=== PATIENT | female | born 1945 | race Caucasian/White ===

== ENCOUNTER → 2017-02-03 13:24 | Outpatient (CLI) | payer MEDICARE, BC ==
[~2017-02-03 13:24] MED LIST: ATIVAN0.5 MG PO; BAYER CHEWABLE81 MG PO; FLAGYL500 MG PO; HEPARIN SOD5000 U/ML; HEPARIN SOD5000 U/ML IV; HYDROCODONE-APA1 TAB PO; LEVAQUIN750 MG PO; MORPHINE SULF5 MG/ML IV; NITROQUICK0.4 MG SL; ONDANSETRON4 MG/2 M3 IV; SODIUM CL 0.91000 ML IV; TOPROL XL50 MG; TOPROL XL50 MG PO; TYLENOL 8 HOUR650 MG PO
== END | disposition home or self-care (01) ==
LOC: D.RAD 13:24
DX: R10.9 Unspecified abdominal pain (principal); Z86.010 Personal history of colon polyps; Z09 Encounter for follow-up examination after completed treatment for conditions other than malignant neoplasm

== ENCOUNTER 2017-07-15 22:33 | Emergency (ER) | payer MEDICARE, BC ==
[2017-07-15 22:56] LABS: APPEARANCE CLEAR (CLEAR); BILIRUBIN NEGATIVE (NEGATIVE); COLOR YELLOW (YELLOW); GLUCOSE NEGATIVE (NEGATIVE); KETONE NEGATIVE (NEGATIVE); LEUKOCYTE ESTERASE NEGATIVE (NEGATIVE); NITRITE NEGATIVE (NEGATIVE); PROTEIN NEGATIVE (NEGATIVE); UROBILINOGEN NORMAL (NORMAL)
[2017-07-15 23:07] LABS: BASOPHILS 0.3 % (0-2); EOSINOPHILS 1.3 % (0-7); HEMATOCRIT 37.9 % (36.0-48.0); HEMOGLOBIN 12.5 g/dL (12-16); IMMATURE GRANULOCYTES 0.1 % (0-5); LYMPHOCYTES 37.9 % (15-50); MCH 28.3 pg (26.0-34.0); MCV 85.7 fL (80.0-100.0); MEAN PLATELET VOLUME 10.2 fL (7.4-10.4); MONOCYTES 6.3 % (2-11); NEUTROPHILS 54.1 % (40-80); RBC 4.42 10x6/uL (4.00-5.40); RDW 13.9 % (11.5-14.5); WBC 10.7 10x3/uL (4.8-10.8)
[2017-07-15 23:12] LABS: PLATELET COUNT 180 10x3/uL (130-400)
[2017-07-15 23:21] LABS: ANION GAP 9.6 mmol/L (8-16); BILIRUBIN - TOTAL 0.17 mg/dL (0.2-1.3); CALCIUM 8.7 mg/dL (8.5-10.1); CARBON DIOXIDE 27.4 mmol/L (21.0-32.0); PROTEIN - SERUM 7.2 g/dL (6.4-8.2)
[2017-07-15 23:46] LABS: HELICOBACTER PYLORI IGG NEGATIVE (NEGATIVE)
== END 2017-07-16 00:01 | disposition home or self-care (01) ==
LOC: D.ER 22:33
PROVIDERS: Emergency Medicine; Physician Assistant Medical
DX: K59.00 Constipation, unspecified (principal); I10 Essential (primary) hypertension

== ENCOUNTER 2017-09-26 20:28 | Emergency (ER) | payer MEDICARE, BC ==
[2017-09-27 00:08] LABS: HEMATOCRIT 41.1 % (36.0-48.0); HEMOGLOBIN 13.5 g/dL (12-16); LYMPHOCYTES 33.4 % (15-50); MCH 28.1 pg (26.0-34.0); MCHC 32.8 g/dL (31.0-37.0); MCV 85.6 fL (80.0-100.0); MEAN PLATELET VOLUME 10.1 fL (7.4-10.4); NEUTROPHILS 59.9 % (40-80); PLATELET COUNT 197 10x3/uL (130-400); RDW 13.4 % (11.5-14.5); WBC 10.9 10x3/uL (4.8-10.8)
== END 2017-09-27 01:15 | disposition home or self-care (01) ==
LOC: D.ER 20:28
PROVIDERS: Nurse Practitioner Family
DX: J02.9 Acute pharyngitis, unspecified (principal); R59.0 Localized enlarged lymph nodes; I10 Essential (primary) hypertension

== ENCOUNTER 2017-12-14 18:53 | Emergency (ER) | payer MEDICARE, BC ==
[2017-12-14 20:19] LABS: BASOPHILS 0.2 % (0-2); EOSINOPHILS 2.1 % (0-7); HEMATOCRIT 39.2 % (36.0-48.0); HEMOGLOBIN 13.1 g/dL (12-16); IMMATURE GRANULOCYTES 0.3 % (0-5); LYMPHOCYTES 38.4 % (15-50); MCHC 33.4 g/dL (31.0-37.0); MCV 86.9 fL (80.0-100.0); MEAN PLATELET VOLUME 10.6 fL (7.4-10.4); MONOCYTES 6.6 % (2-11); NEUTROPHILS 52.4 % (40-80); PLATELET COUNT 195 10x3/uL (130-400); RBC 4.51 10x6/uL (4.00-5.40); RDW 13.2 % (11.5-14.5); WBC 9.1 10x3/uL (4.8-10.8)
[2017-12-14 20:43] LABS: ALBUMIN 3.1 g/dL (3.4-5.0); ANION GAP 14.4 mmol/L (8-16); BILIRUBIN - TOTAL 0.14 mg/dL (0.2-1.3); CALCIUM 8.7 mg/dL (8.5-10.1); CARBON DIOXIDE 23.6 mmol/L (21.0-32.0); CREATININE - SERUM 1.1 mg/dL (0.6-1.3); PROTEIN - SERUM 7.4 g/dL (6.4-8.2)
== END 2017-12-14 22:17 | disposition home or self-care (01) ==
LOC: D.ER 18:53
PROVIDERS: Emergency Medicine
DX: R41.3 Other amnesia (principal); I25.10 Atherosclerotic heart disease of native coronary artery without angina pectoris; I10 Essential (primary) hypertension; I44.0 Atrioventricular block, first degree

== ENCOUNTER 2018-03-12 19:33 | Emergency (ER) | payer MEDICARE, BC ==
[2018-03-12 20:06] LABS: APPEARANCE HAZY (CLEAR); BILIRUBIN NEGATIVE (NEGATIVE); COLOR YELLOW (YELLOW); GLUCOSE NEGATIVE (NEGATIVE); KETONE NEGATIVE (NEGATIVE); NITRITE NEGATIVE (NEGATIVE); PROTEIN NEGATIVE (NEGATIVE); SPECIFIC GRAVITY 1.015 (1.005-1.020); UROBILINOGEN NORMAL (NORMAL)
[2018-03-12 20:11] LABS: BACTERIA MODERATE /hpf (NONE SEEN); EPITHELIAL CELLS 0-5 /hpf (0-5); RED CELLS - URINE 0-5 /hpf (0-5)
[2018-03-12 20:21] LABS: BASOPHILS 0.2 % (0-2); EOSINOPHILS 1.6 % (0-7); HEMATOCRIT 38.1 % (36.0-48.0); HEMOGLOBIN 12.9 g/dL (12-16); IMMATURE GRANULOCYTES 0.1 % (0-5); LYMPHOCYTES 44.4 % (15-50); MCH 29.6 pg (26.0-34.0); MCHC 33.9 g/dL (31.0-37.0); MCV 87.4 fL (80.0-100.0); MEAN PLATELET VOLUME 10.5 fL (7.4-10.4); MONOCYTES 7.9 % (2-11); NEUTROPHILS 45.8 % (40-80); PLATELET COUNT 197 10x3/uL (130-400); RBC 4.36 10x6/uL (4.00-5.40); RDW 13.3 % (11.5-14.5); WBC 9.1 10x3/uL (4.8-10.8)
[2018-03-12 20:36] LABS: ALBUMIN 2.9 g/dL (3.4-5.0); ANION GAP 11.1 mmol/L (8-16); BILIRUBIN - TOTAL 0.24 mg/dL (0.2-1.3); CALCIUM 8.8 mg/dL (8.5-10.1); CARBON DIOXIDE 27.8 mmol/L (21.0-32.0); POTASSIUM - SERUM 3.9 mmol/L (3.5-5.1); PROTEIN - SERUM 7.5 g/dL (6.4-8.2)
[2018-03-12 20:57] LABS: AMYLASE - SERUM 46 U/L (25-115); CREATINE KINASE 65 UL (21-215); LIPASE 148 U/L (73-393)
== END 2018-03-12 22:33 | disposition home or self-care (01) ==
LOC: D.ER 19:33
PROVIDERS: Family Medicine
DX: T67.2XXA Heat cramp, initial encounter (principal); X58.XXXA Exposure to other specified factors, initial encounter; Y93.89 Activity, other specified; Y92.019 Unspecified place in single-family (private) house as the place of occurrence of the external cause; N39.0 Urinary tract infection, site not specified; I10 Essential (primary) hypertension

== ENCOUNTER 2018-04-18 10:44 | Outpatient (CLI) | payer MEDICARE, BC ==
[~2018-04-18] VITALS: Ht 172.7 cm; Wt 87.2 kg
--- NOTE | ~2018-04-18 | OP ---
PATIENT NAME: CARLOS MANUEL GUTIERRES MEDICAL RECORD: [id number] :43 LOCATION:[facility] ADMISSION DATE: SURGEON: WALDO BOB MD DATE OF OPERATION: 04/18/2018 PROCEDURE: Lead portion of permanent pacemaker placement. INDICATION: Symptomatic bradyarrhythmias with AV block. SURGEON: Denilson Nunez MD DESCRIPTION OF PROCEDURE: After left subclavian was cannulated via modified Seldinger technique via Dr. Nunez, first under fluoroscopic guidance, I placed the RV lead in the RV apex without difficulty. After adequate R-waves and thresholds were obtained, under fluoroscopic guidance, I then placed the right atrial lead in right atrial appendage without difficulty. After adequate P waves and thresholds were obtained, the leads were attached to the appropriate pole on the generator and the pocket was closed via Dr. Nunez. IMPRESSION: Successful lead portion of permanent pacemaker placement. ESTIMATED BLOOD LOSS: Minimal. COMPLICATIONS: None. DISPOSITION: To the floor, stable. TRANSINT:[id number] Voice Confirmation ID: [id number] DOCUMENT ID: [id number] WALDO BOB MD at 0849 CC: [id number] DICTATION DATE: 04/18/18 1526 MANAGER OF COMMUNITY RELATIONS: 04/18/18 1558 [facility] CLI 04/19/18 [id number] [place] [address]
--- NOTE | ~2018-04-18 | OP ---
PATIENT NAME: CARLOS MANUEL GUTIERRES MEDICAL RECORD: [id number] :43 LOCATION:D.CAT ADMISSION DATE: SURGEON: ALLISON HANDY MD DATE OF OPERATION: 04/18/2018 PREOPERATIVE DIAGNOSES: 1. Bradycardia. 2. Hyperlipidemia. 3. Coronary artery disease. 4. Hypertension. POSTOPERATIVE DIAGNOSES: 1. Bradycardia. 2. Hyperlipidemia. 3. Coronary artery disease. 4. Hypertension. PROCEDURE: 1. Left subclavian vein dual lead pacemaker placement. 2. Fluoroscopic interpretation. SURGEON: Allison Handy MD CO-SURGEON: Jefry Harrington MD REPORT OF OPERATION: The patient's left chest was prepped and draped in sterile fashion. A total of 25 mL of 1% lidocaine with epinephrine was infused into the surrounding tissues. A transverse incision was made on the left superior lateral chest and a subcutaneous pouch was made over the pectoral fascia. We accessed the left subclavian vein times 2 and guidewires were advanced with ease. Fluoro was used to note that the wires were in good position in the venous system. A dilator trocar device was placed over the wires and the wire and dilator were removed. The leads were advanced through the trocars and noted to be resting in the vena cava. At this point, Dr. Harrington positioned the leads appropriately in the atrium and ventricle. Once the leads were noted to be functioning appropriately, then they were sutured into place with 0 Ti-Cron. The leads were then affixed to the pacemaker and the pacemaker was placed into the subcutaneous pouch and sutured down to the pectoral fascia with a 0 Ti-Cron. The subcutaneous tissues were irrigated out with antibiotic solution and reapproximated with interrupted 3-0 Vicryl. The skin was then closed with subcutaneous 5-0 Monocryl and dressed appropriately. COMPLICATIONS: None. CONDITION: Stable. ANESTHESIA: Local MAC. BLOOD LOSS: Minimal. TRANSINT:[id number] Voice Confirmation ID: [id number] DOCUMENT ID: [id number] OPERATIVE REPORT [id number] CARLOS MANUEL GUTIERRES ALLISON HANDY MD at 1147 CC: [id number] DICTATION DATE: 04/18/18 1529 ENGLISH TEACHER: 04/18/18 1600 DEP CLI 04/19/18 [address] [place] [address]
--- NOTE | ~2018-04-18 | HEMODYNAMI ---
PATIENT:CARLOS MANUEL GUTIERRES MEDICAL RECORD: [id number] : 43 LOCATION:[facility] ADMISSION DATE: 04/18/18 Generatedon:04/18/201815:32 Patient name: CARLOS MANUEL GUTIERRES Patient #: [id number] SSN: : 1945 Date of study: 04/18/2018 Page: Of Hemodynamic Procedure Report Patient Data Patient Demographics Procedure consent was obtained First Name: CARLOS MANUEL Gender: Female Last Name: BHAVIK : 1945 Middle Initial: D Age: 72 year(s) Patient #: [id number] Race: Unknown Additional ID: [id number] Contact details [address]: [address] [place] [address] State: [place] City: [place] Zip code: [address] Past Medical History Allergies Allergen Reaction Date Comments Reported Other allergy 04/19/2016 Codeine Codeine 04/18/2018 Admission Admission Data Admission Date: 04/18/2018 Admission Time: 10:44 Height (in.): 5.8 BSA: 0.34 (m2) Height (cm.): 14.73 BMI: 4075.46 (kg/m2) Weight (lbs.): 195 Weight (kg.): 88.45 Lab Results Lab Result Date: 04/18/2018 Lab Result Time: 0:00 Biochemistry Name Units Result Min Max BUN mg/dl 21 --(----)-* 7 18 Creatinine mg/dl 1 --(--*-)-- 0.6 1.3 CBC Name Units Result Min Max Hemoglobin g/dl 14.5 --(*---)-- 13.5 17.5 Procedure Procedure Types Cath Procedure Diagnostic Procedure PPM/ICD PPM Dual Implant Sedation Charges Moderate Sedation up to 15 minutes Procedure Description Procedure Date Procedure Date: 04/18/2018 Procedure Start Time: 15:02 Procedure End Time: 15:31 Procedure Staff Name Function Jefry Kolb MD Performing Physician Denilson Nunez MD Assisting physician Javy Young RN Nurse Janis Kaye RT Scrub Nanda Neumann RT Monitor Procedure Data Cath Procedure Fluoroscopy Diagnostic fluoroscopy Total fluoroscopy Time: 1.3 time: 1.3 min min Diagnostic fluoroscopy Total fluoroscopy dose: 37 dose: 37 mGy mGy Estimated blood loss: 5 ml Procedure Complications No complications Procedure Medications Medication Administration Route Dosage Ancef (1Gm/50ml NS) I.V.P.B 1 g Ancef Irrigation Topical 1 g (1gm/500ml NS) Fentanyl I.V. 50 mcg Versed I.V. 1 mg 0.9% NaCl I.V. 100 ml/hr Fentanyl I.V. 50 mcg Versed I.V. 1 mg Fentanyl I.V. 50 mcg Hemodynamics Rest BSA: 0.34 (m2) O2 Consumption: Estimated: 46.24 (ml/min) O2 Consumption indexed: Estimated:136 (ml/min/m) Pre Cath Intra NCS Post Cath Vital Signs Time Heart Resp SPO2 etCO2 NIBP (mmHg) Rhythm Pain Sedation Rate (ipm) (%) (mmHg) Status Level (bpm) 14:48:26 55 18 98 0 159/77(134) NSR 0 (11) 10(A) , No pain 14:53:46 51 18 97 0 157/71(125) NSR 0 (11) 10(A) , No pain 14:58:08 60 16 92 0 143/72(127) NSR 0 (11) 10(A) , No pain 15:03:19 55 15 98 0 140/67(118) NSR 0 (11) 10(A) , No pain 15:07:44 65 16 97 0 150/71(134) NSR 0 (11) 10(A) , No pain 15:12:03 66 16 92 0 134/72(101) NSR 0 (11) 9(A) , No pain 15:16:18 71 16 91 0 128/66(98) NSR 0 (11) 9(A) , No pain 15:20:36 71 18 92 0 132/63(101) NSR 0 (11) 9(A) , No pain 15:24:56 71 20 95 0 123/64(109) NSR 0 (11) 9(A) , No pain 15:29:14 54 18 94 0 119/62(108) NSR 0 (11) 9(A) , No pain Medications Time Medication Route Dose Verified Delivered Reason Notes Effective ness by by 14:59:06 Ancef I.V.P.B 1 g Jefry Girony Per (1Gm/50ml St Armando Young RN physician NS) 14:59:11 Ancef Topical 1 g Jefry Javy Per Irrigation St Armando Young RN physician (1gm/500ml NS) 14:59:20 Fentanyl I.V. 50 Jefry Javy for [facility] Armando Young RN sedation 14:59:27 Versed I.V. 1 mg Jefry Javy for [facility] Armando Young RN sedation 15:00:21 0.9% NaCl I.V. 100 Jefry Girony Per ml/hr St Armando Young RN physician 15:05:01 Fentanyl I.V. 50 Jefry Javy for [facility] Armando Young RN sedation 15:05:06 Versed I.V. 1 mg Jefry Javy for [facility] Armando Young RN sedation 15:08:45 Fentanyl I.V. 50 Jefry Javy for [facility] Armando Young RN sedation Procedure Log Time Note 14:25:39 Nanda Counts RT(R) sent for patient. Start room use. 14:31:05 Time tracking: Regular hours (M-F 7:00 - 5:00) 14:31:09 Plan of Care:Hemodynamics will remain stable., Cardiac rhythm will remain stable., Comfort level will be maintained., Respiratory function will remain adequate., Patient/ family verbilizes understanding of procedure., Procedure tolerated without complication., Recovers from procedure without complications.. 14:36:08 Signed procedure consent form obtained from patient. 14:36:23 H&P Date Dictated: 04/11/2018 Within 30 days and on chart., H&P Addendum completed by physician on day of procedure. (MUST COMPLETE FOR ALL OUTPATIENTS). 14:36:29 Patient allergic to Codeine 14:36:42 Patient Height : 5.8 inches 14:36:46 Patient Weight : 195 lbs 14:38:06 Lab Result : BUN 21 mg/dl 14:38:06 Lab Result : Hemoglobin 14.5 g/dl 14:38:06 Lab Result : Creatinine 1 mg/dl 14:41:02 Patient received from Pre/Post Procedure Room to CCL 3 Alert and oriented. Tansferred to table in Supine position. 14:41:03 Warm blankets applied, and gallito hugger turned on for patient comfort. 14:41:03 Correct patient and procedure confirmed by team. 14:41:04 ECG and BP/O2 sat monitors applied to patient. 14:47:03 Vital chart was started 14:55:31 Rhythm: sinus bradycardia 14:55:33 Full Disclosure recording started 14:55:34 Pre-procedure instructions explained to patient. 14:55:35 Pre-op teaching completed and patient verbalized understanding. 14:55:36 Family in patients room. 14:55:38 Patient NPO since Midnight. 14:55:40 Is the patient allergic to Iodine/contrast media? No. 14:55:42 Is patient on blood thinner?No 14:55:49 Previous problem with sedation/anesthesia? No ? 14:55:54 Snore? Yes 14:55:55 Sleep apnea? No 14:56:01 Deviated septum? No 14:56:01 Opens mouth fully? Yes 14:56:02 Sticks out tongue? Yes 14:56:04 Airway obstruction? No ? 14:56:08 Dentures? No ? 14:56:59 2-0 Ticron Multipack ([id number]) opened to sterile field. 14:57:00 3-0 Vicryl Single Pack [id number] opened to sterile field. 14:57:01 5-0 Monocryl PS3 [id number] opened to sterile field. 14:57:05 Mepilex Dressing (812865) opened to sterile field. 14:57:20 Medtronic Advisa MRI PPM Dual Generator [id number] opened to sterile field. 14:57:24 Medtronic 4574-45 PPM Lead opened to sterile field. 14:57:26 Medtronic 4074-52 PPM Lead opened to sterile field. 14:57:33 Patient pain scale 0/10 ?. 14:57:38 IV patent on arrival in left hand with 0.9% NaCl at [facility] 14:57:51 Left chest area was prepped with chlora-prep and draped in sterile fashion 14:57:51 Alarms reviewed by R. N. 14:57:52 Sharps counted by scrub and verified by R.N. 14:58:11 Final Timeout: patient, procedure, and site verified with staff and physician. All members of the team are in agreement. 14:58:15 Left chest site verified by team. 14:58:18 Physical assessment completed. ASA score P 2 - A patient with mild systemic disease as per Jefry Kolb MD. 14:58:20 Sedation plan: IV Moderate Sedation Medication:Versed, Fentanyl 14:59:06 Ancef (1Gm/50ml NS) 1 g I.V.P.B was administered by Javy Young RN; Per physician; 14:59:11 Ancef Irrigation (1gm/500ml NS) 1 g Topical was administered by Javy Young RN; Per physician; 14:59:20 Fentanyl 50 mcg I.V. was administered by Javy Young RN; for sedation; 14:59:27 Versed 1 mg I.V. was administered by Javy Young RN; for sedation; 15:00:21 0.9% NaCl 100 ml/hr I.V. was administered by Javy Young RN; Per physician; 15:02:13 Procedure started. 15:02:30 Medtronic union contract representative ZHAO DE LA CRUZ present for procedure. 15:02:38 Pre sharps counted by scrub and verified by RN: Sutures: 7; Sponges: 5; Stick needles: 2; Skin needles: 2; Blade: 1; Cautery: 1 15:02:41 Grounding pad site Left thigh. 15:02:42 Grounding pad site free from injury. 15:02:50 Lidocaine 1% w/epi and Bupivacaine 0.5% was administered to left subclavicular area by Denilson Nunez MD . 15:03:01 Incision made to left subclavicular area. 15:03:06 Generator pocket made/opened. 15:05:01 Fentanyl 50 mcg I.V. was administered by Javy Young RN; for sedation; 15:05:06 Versed 1 mg I.V. was administered by Javy Young RN; for sedation; 15:08:45 Fentanyl 50 mcg I.V. was administered by Javy Young RN; for sedation; 15:10:22 Left subclavian vein accessed with 7Fr Peel Away Sheath. 15:11:11 Ventricular lead inserted and advanced. 15:11:31 Left subclavian vein accessed with 7Fr Peel Away Sheath. 15:11:38 Atrial lead inserted and advanced. 15:14:31 DR KOLB SCRUBBED IN FOR LEAD PLACEMENT 15:15:55 Ventricular lead positioned. 15:15:57 Ventricular lead tested. 15:17:06 Atrial lead positioned. 15:17:09 Atrial lead tested. 15:17:54 Peel-a-way sheath was split and removed. 15:17:55 Peel-a-way sheath was split and removed. 15:18:04 Atrial lead attachment was completed with 2-0 ticron. 15:18:35 Ventricular lead attachment was completed with 2-0 ticron. 15:20:12 PPM Dual was attached to lead(s) and inserted into pocket. 15:22:07 Generator was sutured in place with 2-0 ticron. 15:22:10 Device pocket was irrigated with Ancef. 15:22:21 Subcutaneous closure was completed with 3-0 vicryl. 15:23:49 Skin closure was completed with 5-0 monocryl. 15:23:56 Lt Chest incision was dressed with Mepilex dressing. 15:24:15 Procedure ended.(Physican Out) 15:24:25 Fluoroscopy time 01.30 minutes. 15:24:32 Fluoroscopy dose: 37 mGy 15:24:32 Flurop Dose total: 37 15:24:35 Sharps counted by scrub and verified by R.N. 15:24:46 Post sharps counted by scrub and verified by RN: Sutures: 7; Sponges: 5; Stick needles: 2; Skin needles: 2; Blade: 1; Cautery: 1 15:24:55 Insertion/operative site no bleeding no hematoma. 15:25:02 Post Chest area:stable, clean and dry 15:25:13 Post-procedure physical assessment completed. ASA score P 2 - A patient with mild systemic disease as per Jefry Kolb MD. 15:25:17 Post procedure rhythm: paced 15:25:27 Estimated blood loss: 5 ml 15:25:28 Post procedure instruction explained to patient.Patient verbalizes understanding. 15:25:29 Patient needs reinforcement of post procedure teaching. 15:25:45 Procedure type changed to Cath procedure, Diagnostic procedure, PPM/ICD, PPM Dual Implant, Sedation Charges, Moderate Sedation up to 15 minutes 15:25:52 Procedure Complication : No complications 15:25:54 See physician's report for complete and final results. 15:26:19 Immobilizer Large opened to sterile field. 15:29:16 Use device set ROZINA PPM 15:29:30 Cautery Tip Metal Dresser opened to sterile field. 15:29:30 Cautery Pushbutton Pencil opened to sterile field. 15:31:00 Parameters-- Generator: Mode: AAIR<=>DDDR. Lower Rate: 60bpm. Upper Rate: 120bpm. 15:31:24 Parameters--Ventricular P/R Wave: 13.3mV. Current: 0.2mA; Threshold: 0.4V; Impedence: 1383OHMS. 15:31:42 Parameters--Atrial P/R Wave: 1.1mV. Current: 0.5mA; Threshold: 0.4V; Impedence: 596OHMS. 15:31:47 Procedure and supply charges have been captured, reviewed, submitted and are correct. 15:31:48 Vital chart was stopped 15:31:50 Report given to PCU. 15:31:54 Patient transfered to PCU with Bed. 15:31:58 Procedure ended. 15:31:58 Full Disclosure recording stopped 15:32:02 End room use (Document Last) Device Usage Item Name Manufacture Quantity Catalog Hospital Part Current Minimal Lot# / Number Charge Number Stock Stock Serial# Code 2-0 Ticron Ethicon 7 [id number] 139688 38989 [id number] 5 Multipack ([id number]) 3-0 Vicryl Ethicon 1 [id number] 934279 243140 [id number] 5 Single Pack [id number] 5-0 Monocryl Ethicon 1 [id number] 015690 5 PS3 [id number] Mepilex Cardinal 1 [id number] 546879 [id number] [id number] 5 [facility] ([id number]) Medtronic Medtronic 1 [id number] 5 [id number] Advisa MRI 2019-05-13 PPM Dual Generator [id number] Medtronic Medtronic 1 4574-45 128151 [id number] 5 [id number] 4574-45 PPM 2020-01-05 Lead Medtronic Medtronic 1 4074-52 447314 916408 5 [id number] 4074-52 PPM 2020-02-21 Lead Immobilizer Cardinal 1 [id number] 938198 269169 549211 5 [facility] Cautery Tip Microtek 1 [id number] 066785 497622 915447 5 [employer] Cautery Microtek 1 [id number] 420286 31744 788491 5 [facility] Pencil Signature Audit [place] Stage Time Signature Unsigned Intra-Procedure 04/18/2018 Nanda 3:32:12 PM Counts RT(R) Signatures Monitor : Nanda Signature : Counts RT Date : Time : [address] [address]
[2018-04-18] MEDS ORDERED: NORVASC5 MG PO (10:58)
[2018-04-18] MEDS ORDERED: PROZAC40 MG PO (10:58)
[2018-04-18 11:07] VITALS: BP 140/74; BMI 30.4
[2018-04-18 11:23] LABS: HEMATOCRIT 42.4 % (36.0-48.0); HEMOGLOBIN 14.5 g/dL (12-16); MCH 29.8 pg (26.0-34.0); MCHC 34.2 g/dL (31.0-37.0); MCV 87.1 fL (80.0-100.0); MEAN PLATELET VOLUME 11.1 fL (7.4-10.4); RBC 4.87 10x6/uL (4.00-5.40); RDW 13.4 % (11.5-14.5); WBC 8.9 10x3/uL (4.8-10.8)
[2018-04-18 11:31] LABS: APTT 28.1 SECONDS (22.8-39.4); INR 1.02 (0.85-1.17)
[2018-04-18 11:45] LABS: ANION GAP 12.7 mmol/L (8-16); CALCIUM 9.8 mg/dL (8.5-10.1); CARBON DIOXIDE 24.3 mmol/L (21.0-32.0)
[2018-04-18 16:03] VITALS: BP 138/62; Ht 172.7 cm; Wt 87.2 kg
[2018-04-18 20:24] VITALS: BP 151/69
[2018-04-19 01:38] VITALS: BP 167/88
[2018-04-19 04:54] VITALS: BP 146/53
[2018-04-19 08:44] VITALS: BP 164/79
== END 2018-04-19 10:05 | disposition home or self-care (01) ==
LOC: D.CATH 10:44 → D.M2 15:34 → D.CATH 04-19 10:05
PROVIDERS: Internal Medicine Interventional Cardiology
DX: I44.30 Unspecified atrioventricular block (principal); R00.1 Bradycardia, unspecified; E78.5 Hyperlipidemia, unspecified; I25.10 Atherosclerotic heart disease of native coronary artery without angina pectoris; I10 Essential (primary) hypertension; Z01.812 Encounter for preprocedural laboratory examination

== ENCOUNTER 2018-09-05 11:51 | Outpatient (CLI) | payer MEDICARE, BC ==
[~2018-09-05] VITALS: Ht 172.7 cm; Wt 73.6 kg
--- NOTE | ~2018-09-05 | OP ---
PATIENT NAME: CARLOS MANUEL GUTIERRES MEDICAL RECORD: [id number] :43 LOCATION:D.CAT ADMISSION DATE: SURGEON: JENN MCGRAW MD DATE OF OPERATION: 09/05/2018 PROCEDURES: 1. PTCA stent LAD. 2. PTCA stent left main. 3. Left heart catheterization. 4. Selective coronary angiography. 5. Vein graft angiography. 6. KIMBROUGH angiography. INDICATION: Angina and coronary artery disease. PROCEDURE IN DETAIL: After informed consent was obtained and after a detailed description of the risks, benefits as well as alternative therapies, the patient elected to proceed with angiogram and angioplasty. The right femoral area was prepped and draped in normal sterile fashion. Right femoral artery was cannulated via modified Seldinger technique with placement of 6-Korean sheath. All catheters exchanged through this sheath. FINDINGS: The left ventriculogram was performed in standard 30-degree PARSONS view, reveals good cardiac wall motion throughout all segments. Overall ejection fraction estimated 60%. SELECTIVE CORONARY ANGIOGRAPHY: 1. Left main has 80% stenosis distally confirmed by intravascular ultrasound. 2. The left anterior descending has 80% stenosis proximally confirmed by intravascular ultrasound. This leads into a large non-grafted LAD diagonal. The mid left anterior descending is then totally occluded. 3. KIMBROUGH to the distal LAD is widely patent. 4. Left circumflex is totally occluded. 5. Vein graft to the circumflex is widely patent. Distal circumflex is widely patent. 6. The right coronary is totally occluded. 7. Vein graft to the right coronary is widely patent. Distal right coronary is widely patent. PTCA STENT OF LEFT MAIN AND LAD: Left main was addressed with a 3.5 x 38 mm Phillip, the LAD with a 3.0 x 38 mm Phillip. Result was 0% residual throughout. OVERALL IMPRESSION: Successful PTCA stent of the LAD and left main leading into a large non-grafted diagonal going from 80% initial stenosis in each vessel to 0% residual. TRANSINT:[id number] Voice Confirmation ID: [id number] DOCUMENT ID: [id number] OPERATIVE REPORT [id number] CARLOS MANUEL GUTIERRES JENN MCGRAW MD at 1059 CC: [id number] DICTATION DATE: 09/05/18 1238 STRATEGIC CONSULTANT: 09/05/18 1245 DEP CLI 09/05/18 [facility] [address] [place] [address]
--- NOTE | ~2018-09-05 | HEMODYNAMI ---
PATIENT:CARLOS MANUEL GUTIERRES MEDICAL RECORD: [id number] : 43 LOCATION:[facility] ADMISSION DATE: 09/05/18 Generatedon:09/05/201812:47 Patient name: CARLOS MANUEL GUTIERRES Patient #: [id number] SSN: : 1945 Date of study: 09/05/2018 Page: Of Hemodynamic Procedure Report Patient Data Patient Demographics Procedure consent was obtained First Name: CARLOS MANUEL Gender: Female Last Name: BHAVIK : 1945 Middle Initial: D Age: 73 year(s) Patient #: [id number] Race: Unknown Additional ID: [id number] Contact details [address]: [address] [place] [address] State: [place] City: [place] Zip code: [address] Past Medical History Allergies Allergen Reaction Date Comments Reported Other allergy 04/19/2016 Codeine Codeine 04/18/2018 Codeine 09/05/2018 Admission Admission Data Admission Date: 09/05/2018 Admission Time: 11:51 Lab Results Lab Result Date: 09/05/2018 Lab Result Time: 0:00 Biochemistry Name Units Result Min Max BUN mg/dl 15 --(--*-)-- 7 18 Creatinine mg/dl 1 --(--*-)-- 0.6 1.3 CBC Name Units Result Min Max Hemoglobin g/dl 13.7 --(*---)-- 13.5 17.5 Procedure Procedure Types Cath Procedure Diagnostic Procedure LHC LHC w/Coronaries w/Grafts FFR/IVUS Intra-Coronary IVUS Initial Intra-Coronary IVUS Additional PCI Procedure Coronary Stent Coronary Stent Initial x2 Procedure Description Procedure Date Procedure Date: 09/05/2018 Procedure Start Time: 12:18 Procedure End Time: 12:41 Procedure Staff Name Function Zelalem Pham RT Monitor Kennedy Remy RN Nurse Parveen Nava MD Performing Physician Janis Kaye RT Scrub Procedure Data Cath Procedure Fluoroscopy Diagnostic fluoroscopy Total fluoroscopy Time: 5.4 time: 5.4 min min Diagnostic fluoroscopy Total fluoroscopy dose: 521 dose: 521 mGy mGy Contrast Material Contrast Material Type Amount (ml) Isovue 300 104 Entry Location Entry Primary Successful Side Size Upsize Upsize Entry Closure Succes sful Closure Location (Fr) 1 (Fr) 2 (Fr) Remarks Device Remarks Femoral Right 5 Fr 6 Fr Exoseal artery Short Estimated blood loss: 10 ml Diagnostic catheters Device Type Used For End Catheter Placement MULTIPACK Pigtail 5 Fr Procedure catheter MULTIPACK JL 4.0 5Fr Procedure catheter MULTIPACK 3DRC 5Fr Procedure catheter DIAGNOSTIC AR2 MOD 5 Fr Procedure catheter ([id number]) Procedure Complications No complications Procedure Medications Medication Administration Route Dosage Oxygen etCO2 Nasal cannula 2 l/min Lidocaine 2% added to field 20 Heparin Flush Bag added to field 2 bags (1000units/500ml NS) 0.9% NaCl I.V. 100 ml/hr Versed I.V. 1 mg Fentanyl I.V. 50 mcg Heparin Bolus I.V. 4000 units Integrilin (Bolus I.V. 6.8 ml 2mg/ml) Versed I.V. 1 mg Fentanyl I.V. 50 mcg Hemodynamics Rest HGB: 13.7 (g/dl) Heart Rate: 62 (bpm) Snapshots Pre Cath Intra NCS Post Cath Vital Signs Time Heart Resp SPO2 etCO2 NIBP (mmHg) Rhythm Pain Sedation Rate (ipm) (%) (mmHg) Status Level (bpm) 12:11:30 62 15 98 28.5 131/64(112) NSR 0 (11) 10(A) , No pain 12:15:50 63 13 99 34.4 132/69(107) NSR 0 (11) 10(A) , No pain 12:20:12 70 14 96 39.7 121/71(103) NSR 0 (11) 10(A) , No pain 12:24:32 64 12 99 14.9 129/66(102) NSR 0 (11) 10(A) , No pain 12:28:54 66 12 99 39.7 135/68(104) NSR 0 (11) 9(A) , No pain 12:33:14 68 12 98 35.9 118/63(97) NSR 0 (11) 9(A) , No pain 12:37:32 65 12 98 32.9 116/66(103) NSR 0 (11) 10(A) , No pain 12:41:46 68 13 99 34.4 120/74(101) NSR 0 (11) 10(A) , No pain Medications Time Medication Route Dose Verified Delivered Reason Notes Effectiveness by by 12:09:49 Oxygen etCO2 2 Parveen Houserie used for Nasal l/min Brandy Remy RN procedure cannula 12:09:57 Lidocaine 2% added 20ml Parveen Saini for local to vial Brandy Nava MD anesthetic field 12:10:05 Heparin Flush added 2 Parveen Houserie used for Bag to bags Brandy Remy RN procedure (1000units/500ml field NS) 12:10:15 0.9% NaCl I.V. 100 Parveen Benavides Per physician ml/hr Brandy Remy RN 12:17:24 Versed I.V. 1 mg Parveen Benavides for sedation Brandy Remy RN 12:17:29 Fentanyl I.V. 50 Parveen Benavides for sedation mcg Brandy Remy RN 12:22:04 Versed I.V. 1 mg Parveen Benavides for sedation Brandy Remy RN 12:22:09 Fentanyl I.V. 50 Parveen Benavides for sedation mcg Bradny Remy RN 12:27:16 Heparin Bolus I.V. 4000 Parveen Benavides for verif ied units Brandy Remy RN anticoagulation with dr nava 12:29:50 Integrilin I.V. 6.8 Parveen Benavides for Waste d (Bolus 2mg/ml) ml Brandy Remy RN antiplatelet 3.2 ml therapy of vial Procedure Log Time Note 11:44:07 Kennedy Remy RN sent for patient. Start room use. 11:44:08 Time tracking: Regular hours (M-F 7:00 - 5:00) 11:44:20 Plan of Care:Hemodynamics will remain stable., Cardiac rhythm will remain stable., Comfort level will be maintained., Respiratory function will remain adequate., Patient/ family verbilizes understanding of procedure., Procedure tolerated without complication., Recovers from procedure without complications.. 11:44:29 H&P Date Dictated: 09/05/2018 ER History on chart.. 11:45:37 Patient allergic to Codeine 11:46:12 Lab Result : Hemoglobin 13.7 g/dl 11:46:12 Lab Result : Creatinine 1 mg/dl 11:46:12 Lab Result : BUN 15 mg/dl 11:59:23 Patient received from ED to CCL 3 Alert and oriented. Tansferred to table in Supine position. 11:59:25 Correct patient and procedure confirmed by team. 11:59:25 Warm blankets applied, and gallito hugger turned on for patient comfort. 11:59:27 ECG and BP/O2 sat monitors applied to patient. 11:59:27 Signed procedure consent form obtained from patient. 12:09:49 Oxygen 2 l/min etCO2 Nasal cannula was administered by Kennedy Remy RN; used for procedure; 12:09:57 Lidocaine 2% 20ml vial added to field was administered by Parveen Nava MD; for local anesthetic; 12:10:05 Heparin Flush Bag (1000units/500ml NS) 2 bags added to field was administered by Kennedy Remy RN; used for procedure; 12:10:15 0.9% NaCl 100 ml/hr I.V. was administered by Kennedy Remy RN; Per physician; 12:10:18 Vital chart was started 12:12:18 Baseline sample Acquired. 12:12:23 Rhythm: sinus rhythm 12:12:24 Full Disclosure recording started 12:12:26 Pre-op teaching completed and patient verbalized understanding. 12:12:26 Pre-procedure instructions explained to patient. 12:12:28 Family in patients room. 12:12:30 Patient NPO since Midnight. 12:12:31 Is the patient allergic to Iodine/contrast media? No. 12:12:34 Is patient on blood thinner?Yes 12:12:36 ACC The patient was administered the following blood thiners within the last 24 hours: ACCPlavix 12:12:51 Loaded in the ER at 1105 12:12:56 Patient diabetic? No. 12:13:02 Previous problem with sedation/anesthesia? No ? 12:13:03 Snore? Yes 12:13:04 Sleep apnea? No 12:13:06 Deviated septum? No 12:13:07 Opens mouth fully? Yes 12:13:08 Sticks out tongue? Yes 12:13:10 Airway obstruction? No ? 12:13:11 Dentures? No ? 12:13:13 Pre procedure: right dorsailis pedis pulse 1+ Palpable, but thready & weak; easily obliterated 12:13:15 Patient pain scale 0/10 ?. 12:13:26 IV patent on arrival in left forearm with 0.9% NaCl at [facility]. 12:13:28 Lab results completed and on chart. 12:13:32 Right groin area was prepped with chlora-prep and draped in sterile fashion 12:13:33 Sharps counted by scrub and verified by R.N. 12:13:33 Alarms reviewed by R. N. 12:14:39 Use device set Femoral Dx 12:15:02 Tegaderm 4 x 4 (1626W) opened to sterile field. 12:15:03 ACIST Manifold (84126) opened to sterile field. 12:15:04 ACIST Hand Control (07529) opened to sterile field. 12:15:06 ACIST Syringe (56800) opened to sterile field. 12:15:07 Medline Cath Pack ([id number]) opened to sterile field. 12:15:07 Bag Decanter (2002S) opened to sterile field. 12:15:09 DIAGNOSTIC WIRE .035 260cm J wire (528177) opened to sterile field. 12:15:11 DIAGNOSTIC Multipack 5Fr catheter set (RR9525) opened to sterile field. 12:15:13 SHEATH Prelude 5Fr 0.035 (IWV-4X-34-035) opened to sterile field. 12:16:12 --------ALL STOP TIME OUT------ 12:16:13 Final Timeout: patient, procedure, and site verified with staff and physician. All members of the team are in agreement. 12:16:44 Right groin site verified by team. 12:16:48 Physical assessment completed. ASA score P 2 - A patient with mild systemic disease as per Parveen Nava MD. 12:16:52 Sedation plan: IV Moderate Sedation Medication:Versed, Fentanyl 12:17:24 Versed 1 mg I.V. was administered by Kennedy Remy RN; for sedation; 12:17:29 Fentanyl 50 mcg I.V. was administered by Kennedy Remy RN; for sedation; 12:18:01 Zero performed for pressure channel P1 12:18:14 Procedure started. 12:18:20 Local anesthetic to right femoral artery with Lidocaine 2% by Parveen Nava MD.INITIAL ACCESS ONLY 12:19:21 A 5 Fr sheath was inserted into the Right Femoral artery 12:20:02 A MULTIPACK Pigtail 5 Fr catheter was advanced over the wire and used for Procedure. 12:20:34 LV angiography performed. 12:20:36 LV gram done using PARSONS 12:20:44 EF : 50 % 12:20:47 Injector settings: Ml/sec: 10, Volume: 20, 12:20:50 Catheter removed. 12:20:56 A MULTIPACK JL 4.0 5Fr catheter was advanced over the wire and used for Procedure. 12:21:34 LCA angiography performed. 12:21:57 Catheter removed. 12:22:02 A MULTIPACK 3DRC 5Fr catheter was advanced over the wire and used for Procedure. 12:22:04 Versed 1 mg I.V. was administered by Kennedy Remy RN; for sedation; 12:22:09 Fentanyl 50 mcg I.V. was administered by Kennedy Remy RN; for sedation; 12:22:17 Use device set JOANIE PCI 12::34 SHEATH Prelude 6Fr 0.035 (BQE-8L-02-035) opened to sterile field. 12:22:37 CHOICE PT Extra Support 182cm wire ([id number]) opened to sterile field. 12:22:41 INFLATOR Merit BasixCompak (ST9851) opened to sterile field. 12:24:02 GLIDE WIRE ANGLE 260cm (SA8027) opened to sterile field. 12:24:29 Rachel wire used to advance catheter. 12:24:36 KIMBROUGH to LAD angiography performed. 12:25:31 RCA angiography performed. 12:25:33 Catheter removed. 12:25:44 A DIAGNOSTIC AR2 MOD 5 Fr catheter ([id number]) was advanced over the wire and used for Procedure. 12:26:28 SVG to Circ angiography performed. 12:26:54 SVG to RCA angiography performed. 12::58 Catheter removed. 12:27:11 Sheath upsized to a 6 Fr Short. 12:27:16 Heparin Bolus 4000 units I.V. was administered by Kennedy Remy RN; for anticoagulation; verified with dr nava 12:28:41 Rufe [place] IVUS Catheter (21283P) opened to sterile field. 12:29:09 6 Fr XBLAD 4 guide catheter was inserted over the wire 12:29:11 GUIDE 6FR XBLAD 4.0 catheter ([id number]) opened to sterile field. 12:29:34 CPTXS wire advanced. 12:29:47 Wire advanced across lesion. 12:29:50 Integrilin (Bolus 2mg/ml) 6.8 ml I.V. was administered by Kennedy Remy RN; for antiplatelet therapy; Wasted 3.2 ml of vial 12:30:00 IVUS catheter advanced over wire. 12:30:27 IVUS pass to LMCA lesion performed. 12:30:41 IVUS pass to LAD lesion performed. 12:30:50 IVUS catheter removed over wire. 12:32:22 Place stent Inflation Number: 1 A KIMBERLY RX 3.0 x 38 stent ([id number]) was prepped and advanced across the Mid LAD. The stent was deployed at 15 DARRYL for 0:10 (min:sec). 12:33:40 Stent catheter was removed intact over wire. 12:33:54 Place stent Inflation Number: 1 A KIMBERLY RX 3.5 x 38 stent ([id number]) was prepped and advanced across the Undefined2. The stent was deployed at 21 DARRYL for 0:10 (min:sec). 12:34:10 Stent catheter was removed intact over wire. 12:34:11 Wire removed. 12:34:12 Guide catheter removed. 12:34:13 EXOSEAL 6Fr (EX600) opened to sterile field. 12:34:24 Sheath removed intact; hemostasis achieved with Exoseal to the Right Femoral artery. 12:34:26 Procedure ended.(Physican Out) 12:35:48 Fluoroscopy time 05.40 minutes. 12:36:01 Fluoroscopy dose: 521 mGy 12:36:01 Flurop Dose total: 521 12:36:05 Contrast amount:Isovue 300 104ml. 12:36:11 Sharps counted by scrub and verified by R.N. 12:36:16 Insertion/operative site no bleeding no hematoma. 12:36:19 Post-op/insertion site Right Femoral artery dressed using a 4 x 4 and Tegaderm. 12:39:38 Post Procedure Pulses reassessed and unchanged 12:39:40 Post-procedure physical assessment completed. ASA score P 2 - A patient with mild systemic disease as per Parveen Nava MD. 12:39:43 Post procedure rhythm: unchanged. 12:39:45 Estimated blood loss: 10 ml 12:39:48 Patient needs reinforcement of post procedure teaching. 12:39:48 Post procedure instruction explained to patient.Patient verbalizes understanding. 12:40:04 Procedure type changed to Cath procedure, Diagnostic procedure, LHC, LHC w/Coronaries w/Grafts, FFR/IVUS, Intra-Coronary IVUS Initial, Intra-Coronary IVUS Additional, PCI procedure, Coronary Stent, Coronary Stent Initial x2 12:41:04 Procedure and supply charges have been captured, reviewed, submitted and are correct. 12:41:07 Procedure Complication : No complications 12:41:09 Vital chart was stopped 12:41:10 See physician's report for complete and final results. 12:41:12 Report given to Pre/Post Procedure Room. 12:41:14 Patient transfered to Pre/Post Procedure Room with Stretcher. 12:41:16 Full Disclosure recording stopped 12:41:16 Procedure ended. 12:41:41 End room use (Document Last) Intervention Summary Intervention Notes Time ActionType Lesion and Equipment Used Action# Pressure Duration Attributes 12:32:22 Place stent Mid LAD KIMBERLY RX 3.0 x 1 15 00:10 38 stent ([id number]) 12:33:54 Place stent Undefined2 KIMBERLY RX 3.5 x 1 21 00:10 38 stent ([id number]) Device Usage Item Name Manufacture Quantity Catalog Number Hospital Part Current Minimal Lot# / Charge Number Stock Stock Serial# Code Tegaderm 4 x 4 3M 1 1626W [id number] [id number] 5 (1626W) ACIST Manifold Acist 1 96224 433752 943787 928814 5 (72498) Medical Systems Inc ACIST Hand Acist 1 99176 656240 288611 803193 5 Control (32781) [employer] Inc ACIST Syringe Acist 1 62869 502154 600388 676243 20 (03815) Medical Systems Inc Bag Decanter Microtek 1 2001S 434020 90995 443869 5 (2001S) Medical Inc. Medline Cath Medline 1 [id number] 109171 05971 135443 5 Pack ([id number]) DIAGNOSTIC WIRE [place] 1 594352 342746 628134 005349 30 .035 260cm J wire (951513) DIAGNOSTIC Cardinal 1 IV1986 499591 19191 445010 30 Multipack 5Fr Health catheter set (MW6006) SHEATH Prelude Merit 1 SRV-8O-76-035 394950 792888 761846 5 5Fr 0.035 Medical (NKX-6S-63-035) MULTIPACK Cardinal 1 419521 5 Pigtail 5 Fr Health catheter MULTIPACK JL Cardinal 1 719754 5 4.0 5Fr Health catheter MULTIPACK 3DRC Cardinal 1 476295 5 5Fr catheter Health SHEATH Prelude Merit 1 HSQ-5J-33-35 574048 9151654 445760 5 6Fr 0.035 Medical (YQP-7Y-92-035) CHOICE PT Extra [place] 1 [id number] 873569 569472 162308 5 Support 182cm Scientific wire ([id number]) INFLATOR Merit Merit 1 ZE7975 467249 153251 616415 15 [employer]ix[employer] Medical (KX0677) GLIDE WIRE Terumo 1 MM7734 051667 018700 433584 5 ANGLE 260cm (KY4474) DIAGNOSTIC AR2 Cardinal 1 [id number] 503048 383243 495326 20 MOD 5 Fr Health catheter ([id number]) Rufe Rufe 1 07430C 172417 397986 066926 8 [place] IVUS Catheter (47987P) GUIDE 6FR XBLAD Cardinal 1 [id number] 262309 349210 444053 3 4.0 catheter Health ([id number]) KIMBERLY RX 3.0 x Medtronic 1 [id number] 085761 4242874 980796 5 [id number] 38 stent ([id number]) KIMBERLY RX 3.5 x Medtronic 1 [id number] 702986 5807097 908792 5 [id number] 38 stent ([id number]) EXOSEAL 6Fr Cardinal 1 EX600 235425 235311 541802 10 (EX600) Health Signature Audit [place] Stage Time Signature Unsigned Intra-Procedure 09/05/2018 Zelalem Pham RT(R) 12:44:11 PM RT(R) 09/05/2018 12:45:41 PM Intra-Procedure 09/05/2018 Zelalem Pham 12:47:08 PM RT(R) Signatures Monitor : Zelalem Pham RT Signature : Date : Time : [place] [id number] [place] [address]
--- NOTE | ~2018-09-05 | CN ---
PATIENT NAME:CARLOS MANUEL GUTIERRES MEDICAL RECORD: [id number] : 43 LOCATION:D.CAT ADMIT DATE: ACCOUNT: [id number] CONSULTING PHYSICIAN: JENN MCGRAW MD REFERRING PHYSICIAN: JENN MCGRAW MD DATE OF CONSULTATION: 09/05/2018 CARDIOLOGY CONSULTATION DIAGNOSES: 1. Unstable angina. 2. Coronary artery disease. 3. Previous coronary artery bypass graft surgery. 4. Hypertension. 5. Hyperlipidemia. HISTORY OF PRESENT ILLNESS: Mrs. Gutierres presents with unstable anginal symptomatology for the past 24-48 hours, severe amount of chest pain, chest pressure, very compatible with angina in an escalating fashion. She is status post coronary artery bypass graft surgery approximately 10 years ago, has not had interventions since. PHYSICAL EXAMINATION: GENERAL APPEARANCE: Well-nourished, well-developed, appears stated age. Level of distress, comfortable. PSYCHIATRIC: Mental status, alert, normal affect. Orientation, oriented to time, place and person. EYES: Lids and conjunctiva, noninjected. No discharge, no pallor. ENT: Lips, teeth, gums, normal dentition. Oropharynx, no cyanosis, no pallor. NECK: Carotid arteries, bilateral normal upstroke, no bruits, no thrills. JUGULAR VEINS: No jugular venous pressure or distention. CERVICAL LYMPH NODES: Nontender, nonenlarged. THYROID: Not enlarged. Nontender. No nodules. LUNGS: Respiratory effort, unlabored. CHEST: Normal curvature. No thoracic deformity. No chest wall tenderness. Percussion, resonant. Auscultation, clear. No wheezes, no rales, no rhonchi. CARDIOVASCULAR: Precordial exam, nondisplaced. No heaves or pericardial thrills. Rate and rhythm, regular. Heart sounds, normal S1, normal S2. No S3, no gallop, no rub. Systolic murmur, not heard. Diastolic murmur, not heard. EXTREMITIES: No cyanosis, no edema. Peripheral pulses, full and equal in all extremities, except as noted. No bruits appreciated. ABDOMEN: Soft, nondistended. Normal aorta. No bruit. Nontender. No masses. Liver, nontender, no hepatomegaly. Spleen, nontender, no splenomegaly. MUSCULOSKELETAL: No joint tenderness. No joint swelling. No erythema. NEUROLOGICAL: Normal gait, normal strength, normal tone. SKIN: Warm and dry. REVIEW OF SYSTEMS: The patient reports easy bruising but reports no swollen glands. The patient reports no fever, no night sweats, no significant weight gain, no significant weight loss. No significant exercise tolerance. The patient reports no dry eyes, no irritation, no vision change. Patient reports no difficulty hearing and no ear pain. Patient reports no frequent nose bleeds or nose and sinus problems. Patient reports on arm pain on exertion. No shortness of breath while lying down. No history of heart murmur. Patient reports no cough, no wheezing or coughing up blood. Patient reports no CONSULT REPORT [id number] CARLOS MANUEL GUTIERRES abdominal pain, no vomiting. Normal appetite. No diarrhea and not vomiting blood. No nausea and no constipation. Patient reports no incontinence. No difficulty urinating. No hematuria. No increased frequency. Patient reports no muscle aches. No weakness, no arthralgias, no back pain. No swelling of the extremities. Patient reports no abnormal mole, no jaundice, no rashes. Reports no loss of consciousness. No weakness and no numbness. No seizures, dizziness, or headaches. The patient reports no depression, no sleep disturbance, feeling safe in a relationship and no alcohol abuse. Patient reports on fatigue. Reports no runny nose or sinus pressure. No itching, no hives, and no frequent sneezing. OVERALL IMPRESSION: Unstable angina. We will proceed with coronary angiography. Further care depends upon findings of the angiography. TRANSINT:[id number] Voice Confirmation ID: [id number] DOCUMENT ID: [id number] JENN MCGRAW MD at 1059 CC: [id number] DICTATION DATE: 09/05/18 1324 PROTEOMICS SCIENTIST: 09/05/18 1417 DEP CLI 09/05/18 [place] [id number]
[2018-09-05 08:17] VITALS: Ht 172.7 cm; Wt 73.6 kg
[2018-09-05 09:02] LABS: BASOPHILS 0.3 % (0-2); EOSINOPHILS 1.4 % (0-7); HEMATOCRIT 40.2 % (36.0-48.0); HEMOGLOBIN 13.7 g/dL (12-16); IMMATURE GRANULOCYTES 0.3 % (0-5); LYMPHOCYTES 33.4 % (15-50); MCH 29.5 pg (26.0-34.0); MCHC 34.1 g/dL (31.0-37.0); MCV 86.6 fL (80.0-100.0); MEAN PLATELET VOLUME 10.1 fL (7.4-10.4); MONOCYTES 5.8 % (2-11); NEUTROPHILS 58.8 % (40-80); PLATELET COUNT 182 10x3/uL (130-400); RBC 4.64 10x6/uL (4.00-5.40); RDW 13.2 % (11.5-14.5); WBC 7.2 10x3/uL (4.8-10.8)
[2018-09-05 09:10] LABS: APTT 27.3 SECONDS (22.8-39.4); INR 1.09 (0.85-1.17); PROTIME 13.7 SECONDS (11.6-15.0)
[2018-09-05 09:25] LABS: ALBUMIN 3.2 g/dL (3.4-5.0); ALKALINE PHOSPHATASE 95 U/L (46-116); ALT (SGPT) 37 U/L (10-68); BILIRUBIN - TOTAL 0.41 mg/dL (0.2-1.3); CALC OSMOLALITY 279 mosm/kg (275-300); CALCIUM 9.1 mg/dL (8.5-10.1); CARBON DIOXIDE 23.3 mmol/L (21.0-32.0); CHLORIDE - SERUM 105 mmol/L (98-107); GLUCOSE 124 mg/dL (74-106); POTASSIUM - SERUM 4.7 mmol/L (3.5-5.1); PROTEIN - SERUM 7.7 g/dL (6.4-8.2); SODIUM 139 mmol/L (136-145); UREA NITROGEN 15 mg/dL (7-18); eGFR NON AFRICAN AMERICAN 57 mL/min (90-120)
[2018-09-05 09:35] LABS: CKMB 0.4 U/L (0.0-3.6); CREATINE KINASE 47 UL (21-215); MAGNESIUM - SERUM 1.9 mg/dL (1.8-2.4); TROPONIN-I < 0.017 ng/mL (0.000-0.060)
[~2018-09-05 11:51] MED LIST changes: +NORVASC5 MG PO; +PROZAC40 MG PO
[2018-09-05 11:56] VITALS: BP 136/74
[2018-09-05] MEDS ORDERED: BAYER CHEWABLE81 MG PO (13:00)
[2018-09-05] MEDS ORDERED: PLAVIX75 MG PO (13:00)
== END 2018-09-05 18:17 ==
LOC: D.CATH 11:51 → D.ER 11:52 → D.CATH 12:15 → EDSTATUS 12:16 → D.CATH 18:17
PROVIDERS: Family Medicine
DX: I25.119 Atherosclerotic heart disease of native coronary artery with unspecified angina pectoris (principal); Z01.812 Encounter for preprocedural laboratory examination
CPT/HCPCS: 92978; 92979; 93459; C9600 ×2

== ENCOUNTER 2018-10-28 16:38 | Emergency (ER) | payer MEDICARE, BC ==
[~2018-10-28] VITALS: Ht 172.7 cm; Wt 86.4 kg
[~2018-10-28 16:38] MED LIST changes: +PLAVIX75 MG PO
[2018-10-28 16:51] VITALS: Ht 172.7 cm; Wt 86.4 kg
[2018-10-28 17:16] LABS: BASOPHILS 0.2 % (0-2); EOSINOPHILS 2.1 % (0-7); HEMATOCRIT 42.2 % (36.0-48.0); HEMOGLOBIN 14.1 g/dL (12-16); IMMATURE GRANULOCYTES 0.3 % (0-5); LYMPHOCYTES 18.1 % (15-50); MCH 30.1 pg (26.0-34.0); MCHC 33.4 g/dL (31.0-37.0); MCV 90.2 fL (80.0-100.0); MONOCYTES 5.7 % (2-11); NEUTROPHILS 73.6 % (40-80); PLATELET COUNT 199 10x3/uL (130-400); RBC 4.68 10x6/uL (4.00-5.40); RDW 13.1 % (11.5-14.5); WBC 9.7 10x3/uL (4.8-10.8)
[2018-10-28 17:34] LABS: ALBUMIN 3.1 g/dL (3.4-5.0); ANION GAP 14.9 mmol/L (8-16); BILIRUBIN - TOTAL 0.32 mg/dL (0.2-1.3); CALCIUM 8.6 mg/dL (8.5-10.1); CARBON DIOXIDE 23.2 mmol/L (21.0-32.0); CREATININE - SERUM 1.1 mg/dL (0.6-1.3); POTASSIUM - SERUM 4.1 mmol/L (3.5-5.1); PROTEIN - SERUM 8.2 g/dL (6.4-8.2)
[2018-10-28 19:18] LABS: APPEARANCE HAZY (CLEAR); COLOR YELLOW (YELLOW)
[2018-10-28 19:19] LABS: BACTERIA FEW /hpf (NONE SEEN); BILIRUBIN NEGATIVE (NEGATIVE); EPITHELIAL CELLS 0-5 /hpf (0-5); GLUCOSE NEGATIVE (NEGATIVE); KETONE NEGATIVE (NEGATIVE); NITRITE NEGATIVE (NEGATIVE); PROTEIN 1+ mg/dL (NEGATIVE); RED CELLS - URINE 0-5 /hpf (0-5); UROBILINOGEN NORMAL (NORMAL)
[2018-10-28] MEDS ORDERED: MACROBID100 MG PO (20:59)
[2018-10-28 21:28] VITALS: BP 125/64
== END 2018-10-28 21:28 | disposition home or self-care (01) ==
LOC: D.ER 16:38
PROVIDERS: Emergency Medicine
DX: N39.0 Urinary tract infection, site not specified (principal); M79.18 Myalgia, other site; R05 Cough; R53.1 Weakness

== ENCOUNTER 2019-02-18 02:10 | Observation (INO) | payer MEDICARE, BC ==
[~2019-02-18] VITALS: Ht 172.7 cm; Wt 86.4 kg
[2019-02-18] VITALS (11 sets, daily range): BP systolic 107–145; BP diastolic 51–72; Ht 172.7 cm; Wt 86.4 kg
--- NOTE | ~2019-02-18 | HEMODYNAMI ---
PATIENT:CARLOS MANUEL GUTIERRES MEDICAL RECORD: [id number] : 43 LOCATION:[facility] D.2122 ADMISSION DATE: 02/18/19 Generatedon:02/19/20199:31 Patient name: CARLOS MANUEL GUTIERRES Patient #: [id number] SSN: : 1945 Date of study: 02/19/2019 Page: Of Hemodynamic Procedure Report Patient Data Patient Demographics Procedure consent was obtained First Name: CARLOS MANUEL Gender: Female Last Name: BHAVIK : 1945 Middle Initial: D Age: 73 year(s) Patient #: [id number] Race: Unknown Additional ID: [id number] Contact details [address]: [address] [place] [address] State: [place] City: [place] Zip code: [address] Past Medical History Allergies Allergen Reaction Date Comments Reported Other allergy 04/19/2016 Codeine Codeine 04/18/2018 Codeine 09/05/2018 Other allergy 02/19/2019 Codeine Admission Admission Data Admission Date: 02/18/2019 Admission Time: 2:40 Room #: D.2122 Lab Results Lab Result Date: 02/19/2019 Lab Result Time: 5:03 Biochemistry Name Units Result Min Max BUN mg/dl 21 --(----)-* 7 18 Creatinine mg/dl 1.1 --(--*-)-- 0.6 1.3 CBC Name Units Result Min Max Hematocrit % 40.6 -*(----)-- 42 54 Hemoglobin g/dl 13.9 --(*---)-- 13.5 17.5 Procedure Procedure Types Cath Procedure Diagnostic Procedure LHC LHC w/Coronaries w/Grafts Procedure Description Procedure Date Procedure Date: 02/19/2019 Procedure Start Time: 9:14 Procedure End Time: 9:29 Procedure Staff Name Function Jeffrey Bailey MD Performing Physician Kennedy Remy RN Nurse Javy Young RN Systems Design Engineer Janis Kaye RT Scrub Shahriar Sapp RT Monitor Procedure Data Cath Procedure Fluoroscopy Diagnostic fluoroscopy Total fluoroscopy Time: 2.5 time: 2.5 min min Diagnostic fluoroscopy Total fluoroscopy dose: 660 dose: 660 mGy mGy Contrast Material Contrast Material Type Amount (ml) Isovue 300 50 Entry Location Entry Primary Successful Side Size Upsize Upsize Entry Closure Succes sful Closure Location (Fr) 1 (Fr) 2 (Fr) Remarks Device Remarks Femoral Right 5 Fr Exoseal artery Estimated blood loss: 5 ml Diagnostic catheters Device Type Used For End Catheter Placement MULTIPACK JL 4.0 5Fr Procedure catheter DIAGNOSTIC AR MOD 5Fr Procedure Catheter ([id number]) DIAGNOSTIC IMT 5Fr Procedure Catheter ([id number]) MULTIPACK Pigtail 5 Fr Procedure catheter Procedure Complications No complications Procedure Medications Medication Administration Route Dosage Oxygen etCO2 Nasal cannula 2 l/min Lidocaine 2% added to field 20 Heparin Flush Bag added to field 2 bags (1000units/500ml NS) 0.9% NaCl I.V. 100 ml/hr Versed I.V. 1 mg Fentanyl I.V. 50 mcg Hemodynamics Rest HGB: 13.9 (g/dl) Heart Rate: 61 (bpm) Pressure Samples Time Site Value (mmHg) Purpose Heart Use Rate(bpm) 9:22 LV 146/7,24 Snapshot 68 9:23 AO 147/69(101) Pullback 62 9:23 LV 158/8,46 Pullback 62 Gradients Valve Time Site 1 Site 2 Mean SEP/DFP Peak To Heart Use (mmHg) (sec/min) Peak Rate (mmHg) (bpm) Aortic 9:23 LV AO 8 19 11 62 158/8,46 147/69(101) Calculations Valve P-P Mean Valve Index Valve Source Name Gradient Area Flow (cm2) Aortic 11 8 11 8 Snapshots Pre Cath Intra NCS Post Cath Vital Signs Time Heart Resp SPO2 etCO2 NIBP (mmHg) Rhythm Pain Sedation Rate (ipm) (%) (mmHg) Status Level (bpm) 8:58:50 60 16 97 0 140/68(126) NSR 0 (11) 10(A) , No pain 9:03:06 62 17 96 0 143/75(120) NSR 0 (11) 10(A) , No pain 9:07:25 66 19 98 0 131/70(123) NSR 0 (11) 10(A) , No pain 9:11:45 67 13 96 36.9 129/68(115) NSR 0 (11) 10(A) , No pain 9:16:01 68 15 95 38.4 138/75(104) NSR 0 (11) 9(A) , No pain 9:20:21 64 14 97 43.6 142/66(111) NSR 0 (11) 9(A) , No pain 9:24:35 68 13 97 45.9 136/72(103) NSR 0 (11) 10(A) , No pain 9:28:55 67 17 97 41.4 124/68(101) NSR 0 (11) 10(A) , No pain Medications Time Medication Route Dose Verified Delivered Reason Notes Effe ctiveness by by 8:57:49 Oxygen etCO2 2 Jeffrey Buffie used for Nasal l/min Leo Remy RN procedure cannula 8:57:56 Lidocaine 2% added 20ml Jeffrey Jeffrey for local to vial Leo Bailey MD anesthetic field 8:58:02 Heparin Flush added 2 Jeffrey Jeffrey used for Bag to bags Leo Bailey MD procedure (1000units/500ml field NS) 8:58:10 0.9% NaCl I.V. 100 Jeffrey Buffie Per ml/hr Leo Remy RN physician 9:13:01 Fentanyl I.V. 50 Jeffrey Buffie for mcg Leo Remy RN sedation 9:13:55 Versed I.V. 1 mg Jeffrey Buffie for Leo Remy RN sedation Procedure Log Time Note 8:36:22 Signed procedure consent form obtained from patient. 8:36:23 Diagnostic Cath status Elective 8:36:24 Time tracking: Regular hours (M-F 7:00 - 5:00) 8:36:28 Plan of Care:Hemodynamics will remain stable., Cardiac rhythm will remain stable., Comfort level will be maintained., Respiratory function will remain adequate., Patient/ family verbilizes understanding of procedure., Procedure tolerated without complication., Recovers from procedure without complications.. 8:39:50 Javy Young RN sent for patient. Start room use. 8:49:03 Patient received from Med II to CCL 1 Alert and oriented. Tansferred to table in Supine position. 8:49:04 Warm blankets applied, and gallito hugger turned on for patient comfort. 8:49:04 Correct patient and procedure confirmed by team. 8:49:05 ECG and BP/O2 sat monitors applied to patient. 8:57:37 Vital chart was started 8:57:49 Oxygen 2 l/min etCO2 Nasal cannula was administered by Kennedy Remy RN; used for procedure; 8:57:56 Lidocaine 2% 20ml vial added to field was administered by Jeffrey Bailey MD; for local anesthetic; 8:58:02 Heparin Flush Bag (1000units/500ml NS) 2 bags added to field was administered by Jeffrey Bailey MD; used for procedure; 8:58:10 0.9% NaCl 100 ml/hr I.V. was administered by Kennedy Remy RN; Per physician; 8:59:31 Baseline sample Acquired. 8:59:35 Rhythm: sinus rhythm 8:59:42 Rhythm: paced 9:00:41 Full Disclosure recording started 9:00:52 H&P Date Dictated: 02/18/2019 Within 30 days and on chart.. 9:00:55 Pre-procedure instructions explained to patient. 9:00:56 Pre-op teaching completed and patient verbalized understanding. 9:00:57 Family in patients room. 9:00:58 Patient NPO since Midnight. 9:01:09 Patient allergic to Other allergyCodeine 9:01:11 Is the patient allergic to Iodine/contrast media? No. 9:01:12 Is patient on blood thinner?Yes 9:01:14 ACC The patient was administered the following blood thiners within the last 24 hours: ACCPlavix 9:01:15 Patient diabetic? No. 9:01:21 Previous problem with sedation/anesthesia? No ? 9:01:23 Snore? Yes 9:01:23 Sleep apnea? No 9:01:24 Deviated septum? No 9:01:25 Opens mouth fully? Yes 9:01:25 Sticks out tongue? Yes 9:01:27 Airway obstruction? No ? 9:01:30 Dentures? No ? 9:01:32 Pre procedure: right dorsailis pedis pulse 2+ Normal; easily identifiable; not easily obliterated 9:01:35 Patient pain scale 0/10 ?. 9:01:47 IV patent on arrival in left forearm with 0.9% NaCl at [facility]. 9:02:19 Lab Result : BUN 21 mg/dl : Lab Result : Creatinine 1.1 mg/dl : Lab Result : Hemoglobin 13.9 g/dl : Lab Result : Hematocrit 40.6 % : Lab results completed and on chart. 9:02:25 Right groin area was prepped with chlora-prep and draped in sterile fashion 9:: Alarms reviewed by R. N. :: Sharps counted by scrub and verified by R.N. 9:02:31 Use device set Femoral Dx 9:02:32 ACIST Syringe (70107) opened to sterile field. 9:02:32 Bag Decanter (2002S) opened to sterile field. 9:02:33 Medline Cath Pack ([id number]) opened to sterile field. 9:02:34 ACIST Hand Control (56188) opened to sterile field. 9:02:35 ACIST Manifold (60667) opened to sterile field. 9:02:35 Tegaderm 4 x 4 (1626W) opened to sterile field. 9:02:36 SHEATH 5FR [place] ([id number]) opened to sterile field. 9:02:37 DIAGNOSTIC Multipack 5Fr catheter set ([id number]) opened to sterile field. 9:02:38 DIAGNOSTIC WIRE .035 260cm J wire (202046) opened to sterile field. 9:11:35 Physician arrived 9:11:35 --------ALL STOP TIME OUT------ 9:11:35 Final Timeout: patient, procedure, and site verified with staff and physician. All members of the team are in agreement. 9:11:37 Right groin site verified by team. 9:11:39 Maximum allowable Isovue 300 dose 300ml. Physician notified. (300ml for normal creatinines. For patients with creatinine of 1.7 or higher multiply weight(kg) x 5 divided by creatinine.) 9:11:42 Fire Safety Assessment: A--An alcohol-based skin anteseptic being used preoperatively., C--Open oxygen or nitrous oxide is being used., D--An ESU, laser, or fiber-optic light is being used. 9:11:44 Physical assessment completed. ASA score P 2 - A patient with mild systemic disease as per Jeffrey Bailey MD. 9:11:46 Sedation plan: IV Moderate Sedation Medication:Versed, Fentanyl 9:12:37 IV start 22 g to lt forearm. 9:13:01 Fentanyl 50 mcg I.V. was administered by Kennedy Remy RN; for sedation; 9:13:55 Versed 1 mg I.V. was administered by Kennedy Remy RN; for sedation; 9:14:28 Zero performed for pressure channel P1 9:14:47 Procedure started. 9:14:50 Local anesthetic to right femoral artery with Lidocaine 2% by Jeffrey Bailey MD.INITIAL ACCESS ONLY 9:14:57 A 5 Fr sheath was inserted into the Right Femoral artery 9:15:53 A MULTIPACK JL 4.0 5Fr catheter was advanced over the wire and used for Procedure. 9:15:57 LCA angiography performed. 9:17:00 Catheter exchanged over wire. 9:17:17 A DIAGNOSTIC AR MOD 5Fr Catheter ([id number]) was advanced over the wire and used for Procedure. 9:17:52 RCA angiography performed. 9:18:58 SVG to Circ angiography performed. 9:19:34 SVG to RCA angiography performed. 9:20:09 Catheter exchanged over wire. 9:20:21 A DIAGNOSTIC IMT 5Fr Catheter ([id number]) was advanced over the wire and used for Procedure. 9:21:49 KIMBROUGH to LAD angiography performed. 9:21:51 Catheter exchanged over wire. 9:21:56 A MULTIPACK Pigtail 5 Fr catheter was advanced over the wire and used for Procedure. 9:22:45 LV gram done using PARSONS 9::48 Injector settings: Ml/sec: 10, Volume: 20, 9:22:51 LV hemodynamics recorded. 9:22:55 EF : 55 % 9:23:02 Catheter removed. 9:23:05 EXOSEAL 5Fr (EX500) opened to sterile field. 9:23:24 Sheath removed intact; hemostasis achieved with Exoseal to the Right Femoral artery. 9:23:26 Procedure ended.(Physican Out) 9:28:03 Fluoroscopy time 02.50 minutes. 9:28:06 Flurop Dose total: 660 9:28:06 Fluoroscopy dose: 660 mGy 9:28:08 Contrast amount:Isovue 300 50ml. 9:28:09 Sharps counted by scrub and verified by R.N. 9:28:12 Post-op/insertion site Right Femoral artery dressed using a 4 x 4 and Tegaderm. 9:28:19 Post right femoral artery:stable, soft, clean and dry 9:28:20 Post Procedure Pulses reassessed and unchanged 9:28:22 Post-procedure physical assessment completed. ASA score P 2 - A patient with mild systemic disease as per Jeffrey Bailey MD. 9:28:24 Post procedure rhythm: unchanged. 9:28:26 Estimated blood loss: 5 ml 9:28:32 Post procedure instruction explained to patient.Patient verbalizes understanding. 9:28:33 Patient needs reinforcement of post procedure teaching. 9:29:00 Procedure and supply charges have been captured, reviewed, submitted and are correct. 9:29:05 Procedure Complication : No complications 9:29:11 See physician's report for complete and final results. 9:29:12 Report given to PCU. 9:29:15 Patient transfered to PCU with Stretcher. 9:29:18 Procedure ended. 9:29:18 Full Disclosure recording stopped 9:29:55 End room use (Document Last) Device Usage Item Name Manufacture Quantity Catalog Number Hospital Part Current Minim al Lot# / Charge Number Stock Stock Serial# Code ACIST Acist 1 51478 137810 480962 027676 20 Syringe Medical (59021) Systems Inc Bag Microtek 1 341569 38372 642072 5 Decanter Medical Inc. () Medline Medline 1 [id number] 331450 22520 073892 5 Cath Pack ([id number]) ACIST Hand Acist 1 02481 008142 142604 882511 5 Control Medical (39400) Systems Inc ACIST Acist 1 43815 308775 455047 748512 5 Manifold Medical (07779) Systems Inc Tegaderm 4 3M 1 1626W 382624 933041 279071 5 x 4 (1626W) SHEATH 5FR Terumo 1 [id number] 746057 894165 966723 5 [place] (GJF673) DIAGNOSTIC Cardinal 1 ED3449 036670 44233 101822 30 Multipack Health 5Fr catheter set (QP5139) DIAGNOSTIC [place] 1 260352 151797 238930 017176 30 WIRE .035 260cm J wire (539328) MULTIPACK Cardinal 1 139058 5 JL 4.0 5Fr Health catheter DIAGNOSTIC Cardinal 1 914304V 125975 286964 712415 15 AR MOD 5Fr Health Catheter (538077F) DIAGNOSTIC Baker 1 [id number] 273612 384764 96693 5 IMT 5Fr Scientific Catheter ([id number]) MULTIPACK Cardinal 1 854332 5 Pigtail 5 Health Fr catheter EXOSEAL 5Fr Cardinal 1 EX500 591938 052851 410209 10 (EX500) Health Signature Audit [place] Stage Time Signature Unsigned Intra-Procedure 02/19/2019 Shahriar Sapp 9:31:12 AM RT(R) Signatures Monitor : Shahriar Sapp RT Signature : Date : Time : [address] [address]
[~2019-02-18 02:10] MED LIST changes: +MACROBID100 MG PO
[2019-02-18 02:26] LABS: BASOPHILS 0.3 % (0-2); EOSINOPHILS 1.8 % (0-7); HEMATOCRIT 40.5 % (36.0-48.0); HEMOGLOBIN 13.8 g/dL (12-16); IMMATURE GRANULOCYTES 0.3 % (0-5); LYMPHOCYTES 32.2 % (15-50); MCHC 34.1 g/dL (31.0-37.0); MEAN PLATELET VOLUME 10.4 fL (7.4-10.4); MONOCYTES 8.3 % (2-11); NEUTROPHILS 57.1 % (40-80); PLATELET COUNT 195 10x3/uL (130-400); RDW 13.2 % (11.5-14.5); WBC 10.1 10x3/uL (4.8-10.8)
--- NOTE | 2019-02-18 02:35 | NUR ---
RN ADMINISTERED SL NTG. PT BLOOD PRESSURE DECREASED FROM 145/68 TO 114/68. PT C/O DECREASE IN PAIN FROM 05/09 TO 6. PT ALERT, ORIENTED.
--- NOTE | 2019-02-18 02:40 | NUR ---
PT C/O INCREASE IN PAIN. NO OTHER NTG ADMINISTERED AT THIS TIME. EDP NOTIFIED OF PT PAIN.
[2019-02-18 02:42] LABS: ALBUMIN 3.1 g/dL (3.4-5.0); ALKALINE PHOSPHATASE 132 U/L (46-116); ALT (SGPT) 18 U/L (10-68); BILIRUBIN - TOTAL 0.21 mg/dL (0.2-1.3); CALC OSMOLALITY 278 mosm/kg (275-300); CALCIUM 8.7 mg/dL (8.5-10.1); CARBON DIOXIDE 25.3 mmol/L (21.0-32.0); CHLORIDE - SERUM 104 mmol/L (98-107); CREATININE - SERUM 1.1 mg/dL (0.6-1.3); GLUCOSE 143 mg/dL (74-106); POTASSIUM - SERUM 4.2 mmol/L (3.5-5.1); PROTEIN - SERUM 7.4 g/dL (6.4-8.2); SODIUM 137 mmol/L (136-145); UREA NITROGEN 21 mg/dL (7-18); eGFR NON AFRICAN AMERICAN 51 mL/min (90-120)
--- NOTE | 2019-02-18 02:42 | NUR ---
PT PLACED ON 2L O2 VIA NC.
[2019-02-18 02:48] LABS: LIPASE 220 U/L (73-393); PRO BNP 182 pg/mL (0-125)
[2019-02-18 02:49] LABS: TROPONIN-I < 0.017 ng/mL (0.000-0.060)
--- NOTE | 2019-02-18 03:05 | NUR ---
PT REPORTS DECREASE IN PAIN AFTER RECEIVING IV TORADOL.
--- NOTE | 2019-02-18 03:15 | NUR ---
PT REPORTS INCREASE IN PAIN, EDP NOTIFIED.
--- NOTE | 2019-02-18 03:36 | NUR ---
PT LEFT ED VIA STRETCHER FOR CT.
--- NOTE | 2019-02-18 03:39 | NUR ---
PT FAMILY BREANNA DELANEY [phone]
--- NOTE | 2019-02-18 03:50 | NUR ---
PT RETURNED FROM CT AND TAKEN TO INPATIENT ROOM 2121.
--- NOTE | 2019-02-18 03:54 | NUR ---
PT RESTING WITH EYES CLOSED. RESP EVEN AND REGULAR. SR UP X2,CALL LIGHT WITHIN REACH.
--- NOTE | 2019-02-18 04:45 | NUR ---
PT ARRIVED VIA STETCHER FROM CT WITH DX CP. PT DENIED ANY DISCOMFORT ON ARRIVAL. VSS. SR/PACED PER CM. IV TO UPPER L ARM SL. LUNGS DIMINISHED IN BASES BILAT. SNEED. ADMISSION ASSESSMENT, HISSTORY AND HOME MED LIST COMPLETED. ALERT AND ORIENTED TO PERSON, PLACE AND TIME. SR UP X1, CALL LIGHT WITHIN REACH.
--- NOTE | 2019-02-18 06:14 | NUR ---
PACED/SR PER CM. PT RESTING WITH EYES CLOSED. RESP EVEN AND REGULAR. NEEDS MET; WILL CONTINUE TO MONITOR.
--- NOTE | 2019-02-18 07:00 | NUR ---
RECEIVED REPORT. ASSUMED CARE OF PATIENT. RESTING ON LEFT LATERAL SIDE WITH EYES CLOSED. RESP EVEN AND UNLABORED, PACED SINUS RHYTHM ON TELEMETRY AT 60. NO DISTRESS. CALL LIGHT WITHIN REACH.
--- NOTE | 2019-02-18 11:30 | NUR ---
PATIENT RESTING WITH EYES CLOSED. NO DISTRESS. EASILY AROUSED. DENIES NEEDS AT THIS TIME. FRESH ICE WATER BROUGHT ANYWAY TO MAKE SURE PATIENT HAD FLUIDS AT BEDSIDE. NO DISTRESS. CALL LIGHT WITHIN REACH.
--- NOTE | 2019-02-18 13:40 | NUR ---
CONSENTS SIGNED AND PLACED ON CHART FOR HEART CATH IN AM.
[2019-02-18 14:35] LABS: COLOR DK YELLOW (YELLOW)
[2019-02-18 14:36] LABS: APPEARANCE CLEAR (CLEAR); BILIRUBIN NEGATIVE (NEGATIVE); GLUCOSE NEGATIVE (NEGATIVE); KETONE NEGATIVE (NEGATIVE); NITRITE NEGATIVE (NEGATIVE); PROTEIN NEGATIVE (NEGATIVE); UROBILINOGEN NORMAL (NORMAL)
--- NOTE | 2019-02-18 17:08 | NUR ---
PATIENT SITTING UP IN BED TO EAT PM MEAL. NO DISTRESS. CALL LIGHT WITHIN REACH. DENIES NEEDS.
[2019-02-19 00:30] VITALS: BP 129/67
[2019-02-19 03:48] VITALS: BP 142/76
[2019-02-19 05:49] LABS: HEMATOCRIT 40.6 % (36.0-48.0); HEMOGLOBIN 13.9 g/dL (12-16); LYMPHOCYTES 33.6 % (15-50); MCH 30.1 pg (26.0-34.0); MCHC 34.2 g/dL (31.0-37.0); MCV 87.9 fL (80.0-100.0); NEUTROPHILS 57.2 % (40-80); PLATELET COUNT 184 10x3/uL (130-400); RBC 4.62 10x6/uL (4.00-5.40); RDW 12.7 % (11.5-14.5); WBC 7.8 10x3/uL (4.8-10.8)
[2019-02-19 06:04] LABS: ANION GAP 10.2 mmol/L (8-16); CALCIUM 8.8 mg/dL (8.5-10.1); CARBON DIOXIDE 28.3 mmol/L (21.0-32.0); CREATININE - SERUM 1.1 mg/dL (0.6-1.3); POTASSIUM - SERUM 4.5 mmol/L (3.5-5.1)
--- NOTE | 2019-02-19 08:01 | NUR ---
ASSESSMENT DONE. DENIES NEEDS.
--- NOTE | 2019-02-19 08:39 | NUR ---
I have reviewed this patient and I concur with the Shift Assessment completed by the Licensed Practical Nurse today this shift.
[2019-02-19 12:00] VITALS: BP 103/55
--- NOTE | 2019-02-19 13:46 | NUR ---
DC GIVEN TO PT
--- NOTE | 2019-02-19 14:24 | NUR ---
DC HOME PER PERSONAL CAR
--- NOTE | 2019-02-20 08:50 | MORECARE ---
CASE MANAGEMENT DISCHARGE SUMMARY PATIENT: CARLOS MANUEL GUTIERRES UNIT: [id number] ADM DATE: 02/18/19 AGE: 73 : 43 SEX: F ROOM/BED: D.2121 AUTHOR: YANG NIETO PHYSICIAN: REFERRING PHYSICIAN: ALBERTINA WRIGHT DO DATE OF SERVICE: 02/20/19 Discharge Plan Patient Name: CARLOS MANUEL GUTIERRES Facility: [facility]:[place] : 1945 Planned Disposition: Home Anticipated Discharge Date: 02/19/19 Discharge Date: 02/19/2019 Expected LOS: 1 Initial Reviewer: [email or web address] Initial Review Date: 02/20/2019 Generated: 02/20/19 9:50 am Patient Name: CARLOS MANUEL GUTIERRES Page [phone] at 0850 All edits/amendments must be made on the electronic document DICTATION DATE: 02/20/19 0850 MINERAL WOOL INSULATION SUPERVISOR: DM 02/20/19 0850 RPT#: [id number] DC DATE:02/19/19 STATUS: DIS IN [facility] [address] [place] [address] END OF REPORT
== END 2019-02-19 14:24 | disposition home or self-care (01) ==
LOC: D.ER 02:10 → OBSVTIME 02:40 → D.M2 02:40
PROVIDERS: Family Medicine; ADMIT Family Medicine; ATTEND Family Medicine
DX: I25.110 Atherosclerotic heart disease of native coronary artery with unstable angina pectoris (principal); I10 Essential (primary) hypertension; E78.5 Hyperlipidemia, unspecified

== ENCOUNTER → 2019-03-23 08:31 | Outpatient (CLI) | payer MEDICARE, BC ==
[2019-02-18 04:12] VITALS: BMI 28.8
== END | disposition home or self-care (01) ==
LOC: D.CT 08:30
PROVIDERS: ATTEND Internal Medicine Interventional Cardiology
DX: I70.213 Atherosclerosis of native arteries of extremities with intermittent claudication, bilateral legs (principal); I73.9 Peripheral vascular disease, unspecified

== ENCOUNTER 2019-04-10 08:03 | Outpatient (CLI) | payer MEDICARE, BC ==
[~2019-04-10] VITALS: Ht 172.7 cm; Wt 90.9 kg
--- NOTE | ~2019-04-10 | HEMODYNAMI ---
PATIENT:CARLOS MANUEL GUTIERRES MEDICAL RECORD: [id number] : 43 LOCATION:D.CAT ADMISSION DATE: 04/10/19 Generatedon:04/10/20199:57 Patient name: CARLOS MANUEL GUTIERRES Patient #: [id number] SSN: : 1945 Date of study: 04/10/2019 Page: Of Hemodynamic Procedure Report Patient Data Patient Demographics Procedure consent was obtained First Name: CARLOS MANUEL Gender: Female Last Name: BHAVIK : 1945 Middle Initial: D Age: 73 year(s) Patient #: [id number] Race: Unknown Additional ID: [id number] Contact details [address]: [address] [place] [address] State: [place] City: [place] Zip code: [address] Past Medical History Allergies Allergen Reaction Date Comments Reported Other allergy 04/19/2016 Codeine Codeine 04/18/2018 Codeine 09/05/2018 Other allergy 02/19/2019 Codeine Admission Admission Data Admission Date: 04/10/2019 Admission Time: 8:03 Procedure Procedure Types Cath Procedure Peripheral Cath Diagnostic Procedure Staffing Analyst Peripheral Procedures Jfheh-Xvhnksl-Ffi-Off Procedure Description Procedure Date Procedure Date: 04/10/2019 Procedure Start Time: 9:52 Procedure End Time: 9:56 Procedure Staff Name Function Parveen Nava MD Performing Physician Prachi Wilkes RT Scrub Yue Huang RN Nurse Zelalem Pham RT Monitor Rosalio Luque RT Management Trainee Marketing Procedure Data Cath Procedure Fluoroscopy Diagnostic fluoroscopy Total fluoroscopy Time: 0.4 time: 0.4 min min Diagnostic fluoroscopy Total fluoroscopy dose: 124 dose: 124 mGy mGy Contrast Material Contrast Material Type Amount (ml) Isovue 370 40 Entry Location Entry Primary Successful Side Size Upsize Upsize Entry Closure Succes sful Closure Location (Fr) 1 (Fr) 2 (Fr) Remarks Device Remarks Femoral Right 5 Fr Exoseal artery Estimated blood loss: 10 ml Diagnostic catheters Device Type Used For End Catheter Placement DIAGNOSTIC UF 5Fr Procedure catheter ([id number]) Procedure Complications No complications Procedure Medications Medication Administration Route Dosage 0.9% NaCl I.V. 100 ml/hr Oxygen etCO2 Nasal cannula 2 l/min Lidocaine 2% added to field 20 Heparin Flush Bag added to field 2 bags (1000units/500ml NS) Versed I.V. 2 mg Fentanyl I.V. 50 mcg Hemodynamics Rest Heart Rate: 60 (bpm) Pressure Samples Time Site Value (mmHg) Purpose Heart Use Rate(bpm) 9:53 AO 137/63(93) Snapshot 61 Snapshots Pre Cath Intra NCS Post Cath Vital Signs Time Heart Resp SPO2 etCO2 NIBP (mmHg) Rhythm Pain Sedation Rate (ipm) (%) (mmHg) Status Level (bpm) 9:36:31 65 14 100 37.7 150/83(132) NSR 0 (11) 10(A) , No pain 9:40:49 69 18 100 36.2 155/82(129) NSR 0 (11) 10(A) , No pain 9:45:11 59 17 98 27.9 135/79(125) NSR 0 (11) 10(A) , No pain 9:49:27 60 33 99 34.7 149/72(125) NSR 0 (11) 10(A) , No pain 9:53:47 62 16 99 39.2 142/77(126) NSR 0 (11) 10(A) , No pain Medications Time Medication Route Dose Verified Delivered Reason Notes Effe ctiveness by by 9:33:52 0.9% NaCl I.V. 100 Parveen Yue used for ml/hr Brandy Huang mailing section clerk 9:33:59 Oxygen etCO2 2 Parveen Yue used for Nasal l/min Brandy Huang procedure cannula RN 9:34:05 Lidocaine 2% added 20ml Parveen Parveen for local to vial Brandy Nava MD anesthetic field 9:34:09 Heparin Flush added 2 Parveen Parveen used for Bag to bags Brandy Nava MD procedure (1000units/500ml field NS) 9:49:21 Versed I.V. 2 mg Parveen Yue for Brandy Huang sedation RN 9:49:27 Fentanyl I.V. 50 Parveen Yue for mcg Brandy Huang sedation lifestyle director Log Time Note 9:25:26 Rosalio Suit RT(R) sent for patient. Start room use. 9:25:27 Time tracking: Regular hours (M-F 7:00 - 5:00) 9:25:31 Plan of Care:Hemodynamics will remain stable., Cardiac rhythm will remain stable., Comfort level will be maintained., Respiratory function will remain adequate., Patient/ family verbilizes understanding of procedure., Procedure tolerated without complication., Recovers from procedure without complications.. 9:30:08 Patient received from Pre/Post Procedure Room to CCL 2 Alert and oriented. Tansferred to table in Supine position. 9:30:09 Warm blankets applied, and gallito hugger turned on for patient comfort. 9:30:10 Correct patient and procedure confirmed by team. 9:30:12 Signed procedure consent form obtained from patient. 9:30:12 ECG and BP/O2 sat monitors applied to patient. 9:33:52 0.9% NaCl 100 ml/hr I.V. was administered by Yue Huang RN; used for procedure; 9:33:59 Oxygen 2 l/min etCO2 Nasal cannula was administered by Yue Huang RN; used for procedure; 9:34:05 Lidocaine 2% 20ml vial added to field was administered by Parveen Nava MD; for local anesthetic; 9:34:09 Heparin Flush Bag (1000units/500ml NS) 2 bags added to field was administered by Parveen Nava MD; used for procedure; 9:35:14 Vital chart was started 9:41:39 Baseline sample Acquired. 9:41:43 Rhythm: sinus rhythm 9:41:48 Full Disclosure recording started 9:42:26 H&P Date Dictated: 03/19/2019 Within 30 days and on chart., H&P Addendum completed by physician on day of procedure. (MUST COMPLETE FOR ALL OUTPATIENTS). 9:42:27 Pre-procedure instructions explained to patient. 9:42:28 Pre-op teaching completed and patient verbalized understanding. 9:42:32 Family in patients room. 9:42:34 Patient NPO since Midnight. 9:42:36 Is the patient allergic to Iodine/contrast media? No. 9:42:47 Is patient on blood thinner?Yes 9:43:19 ACC The patient was administered the following blood thiners within the last 24 hours: ACCPlavix 9:43:22 Patient diabetic? No. 9:43:24 Previous problem with sedation/anesthesia? No ? 9:43:25 Snore? Yes 9:43:27 Sleep apnea? No 9:43:28 Deviated septum? No 9:43:29 Opens mouth fully? Yes 9:43:29 Sticks out tongue? Yes 9:43:32 Airway obstruction? No ? 9:43:33 Dentures? No ? 9:43:59 Pre procedure: right dorsailis pedis pulse Doppler 9:44:03 Pre procedure: left dorsailis pedis pulse Doppler 9:44:05 Patient pain scale 0/10 ?. 9:44:11 IV patent on arrival in left forearm with 0.9% NaCl at [facility]. 9:44:12 Lab results completed and on chart. 9:44:16 Bilateral groins area was prepped with chlora-prep and draped in sterile fashion 9:44:17 Alarms reviewed by R. N. 9:44:18 Sharps counted by scrub and verified by R.N. 9:44:34 Use device set Femoral Dx 9:44:36 Tegaderm 4 x 4 ([id number]) opened to sterile field. 9:44:37 ACIST Manifold (05738) opened to sterile field. 9:44:38 ACIST Hand Control (29733) opened to sterile field. 9:44:40 ACIST Syringe (30083) opened to sterile field. 9:44:40 Bag Decanter (2002S) opened to sterile field. 9:44:40 Medline Cath Pack ([id number]) opened to sterile field. 9:44:42 DIAGNOSTIC WIRE .035 260cm J wire (649643) opened to sterile field. 9:44:44 SHEATH 5FR Alba (OLR258) opened to sterile field. 9:48:56 --------ALL STOP TIME OUT------ 9:48:56 Final Timeout: patient, procedure, and site verified with staff and physician. All members of the team are in agreement. 9:48:58 Bilateral groins site verified by team. 9:49:02 Maximum allowable Isovue 370 dose 300ml. Physician notified. (300ml for normal creatinines. For patients with creatinine of 1.7 or higher multiply weight(kg) x 5 divided by creatinine.) 9:49:06 Fire Safety Assessment: A--An alcohol-based skin anteseptic being used preoperatively., C--Open oxygen or nitrous oxide is being used., D--An ESU, laser, or fiber-optic light is being used. 9:49:09 Physical assessment completed. ASA score P 2 - A patient with mild systemic disease as per Parveen Nava MD. 9:49:12 Sedation plan: IV Moderate Sedation Medication:Versed, Fentanyl 9:49:21 Versed 2 mg I.V. was administered by Yue Huang RN; for sedation; 9:49:27 Fentanyl 50 mcg I.V. was administered by Yue Huang RN; for sedation; 9:52:35 Procedure started. 9:52:38 Local anesthetic to right femoral artery with Lidocaine 2% by Parveen Nava MD.INITIAL ACCESS ONLY 9:52:48 A 5 Fr sheath was inserted into the Right Femoral artery 9:52:52 A DIAGNOSTIC UF 5Fr catheter ([id number]) was advanced over the wire and used for Procedure. 9:53:01 Abdominal Aortagram was performed. 9:53:04 Left leg runoff performed. 9:54:01 Right leg runoff performed. 9:54:20 EXOSEAL 5Fr (EX500) opened to sterile field. 9:54:30 Sheath removed intact; hemostasis achieved with Exoseal to the Right Femoral artery. 9:54:32 Procedure ended.(Physican Out) 9:54:57 Fluoroscopy time 00.40 minutes. 9:55:00 Fluoroscopy dose: 124 mGy 9:55:00 Flurop Dose total: 124 9:55:12 Contrast amount:Isovue 370 40ml. 9:55:13 Sharps counted by scrub and verified by R.N. 9:55:14 Insertion/operative site no bleeding no hematoma. 9:55:17 Post-op/insertion site Right Femoral artery dressed using a 4 x 4 and Tegaderm. 9:55:18 Post Procedure Pulses reassessed and unchanged 9:55:20 Post-procedure physical assessment completed. ASA score P 2 - A patient with mild systemic disease as per Parveen Nava MD. 9:55:23 Post procedure rhythm: unchanged. 9:55:25 Estimated blood loss: 10 ml 9:55:26 Post procedure instruction explained to patient.Patient verbalizes understanding. 9:55:27 Patient needs reinforcement of post procedure teaching. 9:55:36 Procedure type changed to Cath procedure, Peripheral Cath Diagnostic Procedure, Staffing Analyst Peripheral Procedures, Bmcab-Ikgldak-Pmk-Off 9:55:36 Procedure and supply charges have been captured, reviewed, submitted and are correct. 9:55:39 Procedure Complication : No complications 9:55:55 Vital chart was stopped 9:55:55 See physician's report for complete and final results. 9:55:56 Report given to Pre/Post Procedure Room. 9:55:58 Patient transfered to Pre/Post Procedure Room with Stretcher. 9:56:00 Procedure ended. 9:56:00 Full Disclosure recording stopped 9:57:04 End room use (Document Last) Device Usage Item Name Manufacture Quantity Catalog Hospital Part Current Minimal L ot# / Number Charge Number Stock Stock Serial# Code Tegaderm 4 3M 1 1626W [id number] [id number] [id number] 5 x 4 (1626W) ACIST Acist 1 42402 104879 382288 702884 5 Manifold Medical (17501) Systems Inc ACIST Hand Acist 1 20380 509285 494432 475986 5 Control Medical (16941) Systems Inc ACIST Acist 1 77125 943284 360898 113614 20 Syringe Medical (21956) Systems Inc Bag Microtek 1 2001S 529342 01556 522070 5 Decanter Medical Inc. (2001S) Medline Medline 1 [id number] 467075 53080 714666 5 Cath Pack ([id number]) DIAGNOSTIC [facility] 1 378124 311422 522432 313927 30 WIRE .035 260cm J wire (469150) SHEATH 5FR Terumo 1 [id number] 133562 980015 997607 5 Alba (GZZ972) DIAGNOSTIC Cardinal 1 [id number] 628349 988978 781405 10 UF 5Fr Health catheter (932504T4) EXOSEAL 5Fr Cardinal 1 EX500 809182 601365 140221 10 (EX500) Health Signature Audit [place] Stage Time Signature Unsigned Intra-Procedure 04/10/2019 Zelalem Pham 9:57:17 AM RT(R) Signatures Monitor : Zelalem Pham RT Signature : Date : Time : [address] [place] [address]
[2019-04-10 08:42] VITALS: BP 144/77; Ht 172.7 cm; Wt 90.9 kg
[2019-04-10 08:51] LABS: BASOPHILS 0.2 % (0-2); EOSINOPHILS 1.1 % (0-7); HEMATOCRIT 42.6 % (36.0-48.0); HEMOGLOBIN 14.1 g/dL (12-16); IMMATURE GRANULOCYTES 0.3 % (0-5); LYMPHOCYTES 22.3 % (15-50); MCH 30.3 pg (26.0-34.0); MCHC 33.1 g/dL (31.0-37.0); MCV 91.4 fL (80.0-100.0); MEAN PLATELET VOLUME 10.1 fL (7.4-10.4); MONOCYTES 6.3 % (2-11); NEUTROPHILS 69.8 % (40-80); PLATELET COUNT 210 10x3/uL (130-400); RBC 4.66 10x6/uL (4.00-5.40); RDW 13.5 % (11.5-14.5); WBC 12.4 10x3/uL (4.8-10.8)
[2019-04-10 09:02] LABS: ANION GAP 12.6 mmol/L (8-16); CALCIUM 8.6 mg/dL (8.5-10.1); CARBON DIOXIDE 26.5 mmol/L (21.0-32.0); CREATININE - SERUM 1.1 mg/dL (0.6-1.3); POTASSIUM - SERUM 4.1 mmol/L (3.5-5.1)
--- NOTE | 2019-04-10 10:15 | NUR ---
RECIEVED TO ROOM VIA STRETCHER FROM CONSOLE MANAGER WITH 5 FR EXOSEAL R/GROIN CDI NO BLEEDING OR HEMATOMA NOTED. PATIENT CONNECTED TO MONITOR FOR OBSERVATION WITH HR 61 BP143/66. CHEST PAIN IS DENIED. INSTRUCTED PATIENT TO KEEP HEAD FLAT ON PILLOW WITH RLE STRAIGHT
[2019-04-10] MEDS ORDERED: CALAN120 MG PO (10:23)
--- NOTE | 2019-04-10 10:29 | NUR ---
RESTING QUIETLY WITH NO DISTRESS 5 FR EXOSEAL R/GROIN IS CDI WITH AREA SOFT TO PLAPATE
--- NOTE | 2019-04-10 10:39 | NUR ---
PATIENT CONTINUES TO REST WITH VSS 5 FR EXOSEAL R/GROIN IS CDI
--- NOTE | 2019-04-10 11:12 | NUR ---
PATIENT RESPONDS TO VERBAL WITH CHEST PAIN DENIED. 5 FR EXOSEAL R/GROIN REMAINS CDI. VSS
--- NOTE | 2019-04-10 11:19 | NUR ---
DR MCGRAW AT BEDSIDE WITH PATIENT NO NEW ORDERS.
--- NOTE | 2019-04-10 11:42 | NUR ---
REPOSITIONED TO HOB UP 30 FOR COMFORT. 5 FR EXOSEAL IS CDI NO BLEEDING. PATIENT ASSISTED WITH SET UP OF SANDWICH TRAY NAUSEA IS DENIED
--- NOTE | 2019-04-10 12:09 | NUR ---
PIV REMOVED WITH DRESSING APPLIED. 5 FR EXOSEAL R/GROIN REMAINS CDI AND CHEST PAIN IS DENIED. PATIENT UP TO GET DRESSED FOR DISCHARGE HOME
--- NOTE | 2019-04-10 12:38 | NUR ---
VERBAL AND WRITTEN DISCHARGE GONE OVER WITH PATIENT AND FAMILY. 5 FR EXOSEAL R/GROIN IS CDI AND CHEST PAIN IS DENIED PATIENT LEFT VIA WC TO [facility] FOR TRANSPORT HOME NO DISTRESS
--- NOTE | 2019-04-10 17:17 | OP ---
PATIENT NAME: CARLOS MANUEL GUTIERRES MEDICAL RECORD: [id number] :43 LOCATION:D.CAT ADMISSION DATE: SURGEON: JENN MCGRAW MD DATE OF OPERATION: 04/10/2019 PROCEDURES: 1. Aortofemoral runoff. 2. Abdominal aortography. INDICATION: Leg pain compatible with claudication, discoloration, ischemic changes, bilateral toes. PROCEDURE IN DETAIL: After informed consent was obtained and after detailed description of risks, benefits as well as alternative therapies, the patient elected to proceed with angiogram and aortofemoral runoff. The right femoral area was prepped and draped in normal sterile fashion. Right femoral artery was cannulated via modified Seldinger technique with placement of 5-Palestinian sheath. All catheters exchanged through this sheath. FINDINGS: Abdominal aortography was performed. The catheter was pulled down for aortofemoral runoff. Abdominal aortography reveals no significant abdominal aortic disease, no dissection or aneurysm formation. RIGHT LEG: A. Iliac: The common internal and external iliacs have mild irregularities, but no flow-limiting stenosis. B. Femoral system: The common superficial and deep femoral are smooth-walled with no significant stenosis. C. Popliteal and infrapopliteal vessels are widely patent with good 3-vessel runoff to the foot. LEFT LEG: A. Iliac: The common internal and external iliacs have mild irregularities, but no flow-limiting stenosis. B. Femoral system: The common superficial and deep femoral are smooth-walled with no significant stenosis. C. Popliteal and infrapopliteal vessels are widely patent with good 3-vessel runoff to the foot. OVERALL IMPRESSION: No significant peripheral vascular disease is present. TRANSINT:[id number] Voice Confirmation ID: [id number] DOCUMENT ID: [id number] JENN MCGRAW MD at 1717 CC: [id number] DICTATION DATE: 04/10/19 1001 ROUGH RICE GRADER: 04/10/19 1029 DEP CLI 04/10/19 [place] [id number]
== END 2019-04-10 12:39 | disposition home or self-care (01) ==
LOC: D.CATH 08:03
PROVIDERS: ATTEND Internal Medicine Interventional Cardiology
DX: M79.606 Pain in leg, unspecified (principal); Z01.812 Encounter for preprocedural laboratory examination

== ENCOUNTER 2019-04-29 11:04 | Outpatient (CLI) | payer MEDICARE, BC ==
[~2019-04-29] VITALS: Ht 172.7 cm; Wt 90.9 kg
--- NOTE | ~2019-04-29 | EC ---
PATIENT:CARLOS MANUEL GUTIERRES DATE OF SERVICE: 04/29/19 SEX: F MEDICAL RECORD: [id number] DATE OF : 43 LOCATION:D. D.212 AGE OF PATIENT: 73 ADMISSION DATE: 04/29/19 REFERRING PHYSICIAN: INTERPRETING PHYSICIAN: JENN NAVA MD ECHOCARDIOGRAM REPORT ECHO CHARGES 4 ECHO COMPLETE Date: 04/29/19 CLINICAL DIAGNOSIS: CP ECHOCARDIOGRAPHIC MEASUREMENTS (adult normal given) AC root (d.<3.7cm) 3.5 cm LV Septum d (<1.2 cm> 1.4 cm Valve Excursion 1.6 cm LV Septum (systole) 2.4 cm Left Atria (s.<4.0cm> 4.7 cm LVPW d(<1.2cm) 1.6 cm RV (d.<2.3cm) 2.6 cm LVPW (sytole) 2.0 cm LV diastole(<5.6CM) 4.2 cm MV E-F(>70mm/sec) cm LV systole 1.5 cm LVOT Diameter 1.9 cm MV exc.(>10mm) cm Est.ejection fraction (50-75%) % DOPPLER: LVIT cm/sec A 70.0 cm/sec E 112 cm/sec LA cm/sec RVSP 26.1 mmHg LVOT 169 cm/sec AOP1/2T m/s Asc. Ao 172 cm/sec RVOT 68.0 cm/sec RA cm/sec PA 108 cm/sec AV Gradient Peak 12.0 mmHg AV Mean 6.6 mmHg AV Area 2.6 cm MV Gradient Peak 6.5 mmHg MV Mean 1.8 mmHg MV Area cm COMMENTS: Psychiatric Specialist: Osmin ADAMOE Rugby [employer] Footballer: 1 Dr. Nava TAPE# PACS Pericardial Effusion N DATE OF SERVICE: 04/29/2019 PROCEDURE: Echocardiogram. FINDINGS: 1. Left ventricular chamber size is within normal limits. Left ventricular systolic function is normal. Overall ejection fraction estimated at 60%. 2. Left atrium is enlarged at 4.7 cm. Right atrium and right ventricular chamber sizes are as well, mildly dilated. 3. Valvular structures have normal structure and motion. ECHOCARDIOGRAM REPORT [id number] CARLOS MANUEL GUTIERRES 4. Doppler interrogation reveals mild mitral regurgitation, mild tricuspid regurgitation, no other valvular insufficiency or stenosis. Pulmonary systolic pressure is estimated at 26 mmHg. 5. No evidence of pericardial effusion or left ventricular thrombus. TRANSINT:[id number] Voice Confirmation ID: [id number] DOCUMENT ID: [id number] JENN NAVA MD CC: [id number] DICTATION DATE: 04/30/19 1103 TANK CLEANER: 04/30/19 1129 REG [facility] [address] [place] [id number]
--- NOTE | ~2019-04-29 | HEMODYNAMI ---
PATIENT:CARLOS MANUEL GUTIERRES MEDICAL RECORD: [id number] : 43 LOCATION:D. D.2120 ADMISSION DATE: 04/29/19 Generatedon:04/30/201913:26 Patient name: CARLOS MANUEL GUTIERRES Patient #: [id number] SSN: : 1945 Date of study: 04/30/2019 Page: Of Hemodynamic Procedure Report Patient Data Patient Demographics Procedure consent was obtained First Name: CARLOS MANUEL Gender: Female Last Name: BHAVIK : 1945 [facility] Initial: D Age: 73 year(s) Patient #: [id number] Race: Unknown Additional ID: [id number] Contact details [address]: [address] [place] [address] State: [place] City: [place] Zip code: [address] Past Medical History Allergies Allergen Reaction Date Comments Reported Other allergy 04/19/2016 Codeine Codeine 04/18/2018 Codeine 09/05/2018 Other allergy 02/19/2019 Codeine Codeine 04/30/2019 Admission Admission Data Admission Date: 04/29/2019 Admission Time: 11:04 Admit Source: Emergency department Room #: D.2120 Lab Results Lab Result Date: 04/30/2019 Lab Result Time: 6:55 Biochemistry Name Units Result Min Max BUN mg/dl 22 --(----)-* 7 18 Creatinine mg/dl 1.2 --(---*)-- 0.6 1.3 CBC Name Units Result Min Max Hematocrit % 37.2 *-(----)-- 42 54 Hemoglobin g/dl 12.2 *-(----)-- 13.5 17.5 Procedure Procedure Types Cath Procedure Diagnostic Procedure LHC LHC w/Coronaries w/Grafts Procedure Description Procedure Date Procedure Date: 04/30/2019 Procedure Start Time: 13:08 Procedure End Time: 13:19 Procedure Staff Name Function Parveen Nava MD Performing Physician Janis Kaye RT Monitor Shahriar Sapp RT Scrub Curtis Charles RN Nurse Kennedy Remy RN Logistics Research Engineer Procedure Data Cath Procedure Fluoroscopy Diagnostic fluoroscopy Total fluoroscopy Time: 3.6 time: 3.6 min min Diagnostic fluoroscopy Total fluoroscopy dose: 679 dose: 679 mGy mGy Contrast Material Contrast Material Type Amount (ml) Isovue 300 82 Entry Location Entry Primary Successful Side Size Upsize Upsize Entry Closure Succes sful Closure Location (Fr) 1 (Fr) 2 (Fr) Remarks Device Remarks Femoral Right 5 Fr Exoseal artery Estimated blood loss: 5 ml Diagnostic catheters Device Type Used For End Catheter Placement MULTIPACK Pigtail 5 Fr Procedure catheter MULTIPACK JL 4.0 5Fr Procedure catheter MULTIPACK 3DRC 5Fr Procedure catheter DIAGNOSTIC AR2 MOD 5 Fr Procedure catheter ([id number]) Procedure Complications No complications Procedure Medications Medication Administration Route Dosage 0.9% NaCl I.V. 100 ml/hr Oxygen etCO2 Nasal cannula 2 l/min Heparin Flush Bag added to field 2 bags (1000units/500ml NS) Lidocaine 2% added to field 20 Versed I.V. 1 mg Fentanyl I.V. 50 mcg Versed I.V. 1 mg Fentanyl I.V. 50 mcg Hemodynamics Rest HGB: 12.2 (g/dl) Heart Rate: 61 (bpm) Snapshots Pre Cath Intra NCS Post Cath Vital Signs Time Heart Resp SPO2 etCO2 NIBP Rhythm Pain Sedation Rate (ipm) (%) (mmHg) (mmHg) Status Level (bpm) 12:48:31 60 24 99 35.3 117/57(88) Paced 0 (11) 10(A) , No pain 12:52:46 59 19 96 42.8 109/57(80) Paced 0 (11) 10(A) , No pain 12:57:02 60 17 98 40.5 117/59(87) Paced 0 (11) 10(A) , No pain 13:01:23 60 19 97 21 116/57(91) Paced 0 (11) 10(A) , No pain 13:05:39 59 20 98 41.3 117/61(89) Paced 0 (11) 10(A) , No pain 13:09:57 53 19 97 27 113/56(84) Paced 0 (11) 9(A) , No pain 13:14:15 59 16 96 48.1 112/59(84) Paced 0 (11) 9(A) , No pain 13:18:35 60 17 98 45.8 115/57(85) Paced 0 (11) 9(A) , No pain Medications Time Medication Route Dose Verified Delivered Reason Notes Eff ectiveness by by 12:47:09 0.9% NaCl I.V. 100 Curtis Curtis Per ml/hr Araceli Charles physician RN RN 12:47:18 Oxygen etCO2 2 Curtis Curtis for low 02 Nasal l/min Lorigan Lorigan sats cannula RN RN 12:47:30 Heparin Flush added 2 Curtis Curtis used for Bag to bags Lorigan Lorigan procedure (1000units/500ml field RN RN NS) 12:47:41 Lidocaine 2% added 20ml Curtis Curtis for local to vial Lorigan Lorigan anesthetic field RN RN 13:07:00 Versed I.V. 1 mg Curtis Curtis for Lorigan Lorigan sedation RN RN 13:07:07 Fentanyl I.V. 50 Curtis Curtis for mcg Lorigan Lorigan sedation RN RN 13:08:59 Versed I.V. 1 mg Curtis Curtis for Lorigan Lorigan sedation RN RN 13:09:05 Fentanyl I.V. 50 Curtis Curtis for mcg Lorigan Lorigan sedation RN business owner/engineer Log Time Note 12:29:17 Informed consent obtained and on chart 12:29:20 Admit Source: Emergency department 12:29:38 Diagnostic Cath status Urgent 12:29:40 Kennedy Remy RN sent for patient. Start room use. 12:29:40 Time tracking: Regular hours (M-F 7:00 - 5:00) 12:29:44 Plan of Care:Hemodynamics will remain stable., Cardiac rhythm will remain stable., Comfort level will be maintained., Respiratory function will remain adequate., Patient/ family verbilizes understanding of procedure., Procedure tolerated without complication., Recovers from procedure without complications.. 12:30:20 Lab Result : BUN 22 mg/dl 12:30:20 Lab Result : Hemoglobin 12.2 g/dl 12:30:20 Lab Result : Creatinine 1.2 mg/dl 12:30:20 Lab Result : Hematocrit 37.2 % 12:31:40 Patient allergic to Codeine 12:38:53 Patient received from Med II to CCL 1 Alert and oriented. Tansferred to table in Supine position. 12:38:55 Warm blankets applied, and gallito hugger turned on for patient comfort. 12:38:55 Correct patient and procedure confirmed by team. 12:39:00 ECG and BP/O2 sat monitors applied to patient. 12:47:09 0.9% NaCl 100 ml/hr I.V. was administered by Curtis Charles RN; Per physician; 12:47:18 Oxygen 2 l/min etCO2 Nasal cannula was administered by Curtis Charles RN; for low 02 sats; 12:47:20 Rhythm: sinus rhythm 12:47:21 Vital chart was started 12:47:22 Baseline sample Acquired. 12:47:25 Full Disclosure recording started 12:47:26 Pre-procedure instructions explained to patient. 12:47:27 Pre-op teaching completed and patient verbalized understanding. 12:47:28 Family in patients room. 12:47:30 Heparin Flush Bag (1000units/500ml NS) 2 bags added to field was administered by Curtis Charles RN; used for procedure; 12:47:31 Patient NPO since Midnight. 12:47:34 Is patient on blood thinner?Yes 12:47:40 PRE LOADED PLAVIX 12:47:41 Lidocaine 2% 20ml vial added to field was administered by Curtis Charles RN; for local anesthetic; 12:47:41 Patient diabetic? No. 12:47:44 Patient not . Patient is over age 55. 12:47:51 Previous problem with sedation/anesthesia? No ? 12:47:52 Snore? Yes 12:47:53 Sleep apnea? No 12:47:54 Deviated septum? No 12:47:55 Opens mouth fully? Yes 12:47:57 Sticks out tongue? Yes 12:47:59 Airway obstruction? No ? 12:48:01 Dentures? No ? 12:48:06 Pre procedure: right dorsailis pedis pulse 4+ Full; bounding; can't obliterate 12:48:09 Patient pain scale 0/10 ?. 12:48:16 IV patent on arrival in left forearm with 0.9% NaCl at [facility]. 12:48:18 Lab results completed and on chart. 12:48:22 Right groin area was prepped with chlora-prep and draped in sterile fashion 12:48:23 Alarms reviewed by RJulius NJulius 12:48:23 Fabiolas counted by scrub and verified by R.N. 12:48:26 Use device set Femoral Dx 12:48:27 ACIST Syringe (86410) opened to sterile field. 12:48:27 Bag Decanter (2002S) opened to sterile field. 12:48:28 ACIST Hand Control (50076) opened to sterile field. 12:48:29 ACIST Manifold (62145) opened to sterile field. 12:48:29 Tegaderm 4 x 4 (1626W) opened to sterile field. 12:48:30 Medline Cath Pack ([id number]) opened to sterile field. 12:48:32 DIAGNOSTIC Multipack 5Fr catheter set ([id number]) opened to sterile field. 12:48:36 EMERALD Guide Wire (398-107) opened to sterile field. 12:48:37 SHEATH 5FR [place] (DYG280) opened to sterile field. 12:53:27 Zero performed for pressure channel P1 13:04:39 --------ALL STOP TIME OUT------ 13:04:39 Final Timeout: patient, procedure, and site verified with staff and physician. All members of the team are in agreement. 13:04:41 Right groin site verified by team. 13:04:43 Maximum allowable Isovue 300 dose 300ml. Physician notified. (300ml for normal creatinines. For patients with creatinine of 1.7 or higher multiply weight(kg) x 5 divided by creatinine.) 13:04:46 Fire Safety Assessment: A--An alcohol-based skin anteseptic being used preoperatively., C--Open oxygen or nitrous oxide is being used., D--An ESU, laser, or fiber-optic light is being used. 13:04:50 Physical assessment completed. ASA score P 2 - A patient with mild systemic disease as per Parveen Nava MD. 13:04:53 Sedation plan: IV Moderate Sedation Medication:Versed, Fentanyl 13:07:00 Versed 1 mg I.V. was administered by Curtis Charles RN; for sedation; 13:07:07 Fentanyl 50 mcg I.V. was administered by Curtis Charles RN; for sedation; 13:07:19 Procedure started. 13:08:10 Local anesthetic to right femoral artery with Lidocaine 2% by Parveen Nava MD.INITIAL ACCESS ONLY 13:08:55 A 5 Fr sheath was inserted into the Right Femoral artery 13:08:59 Versed 1 mg I.V. was administered by Curtis Charles RN; for sedation; 13:09:05 Fentanyl 50 mcg I.V. was administered by Curtis Charles RN; for sedation; 13:09:10 A MULTIPACK Pigtail 5 Fr catheter was advanced over the wire and used for Procedure. 13:09:37 LV gram done using PARSONS 13::41 Injector settings: Ml/sec: 10, Volume: 20, 13::59 EF : 55 % 13:10:01 Catheter removed. 13:10:05 A MULTIPACK JL 4.0 5Fr catheter was advanced over the wire and used for Procedure. 13:11:34 LCA angiography performed. 13:11:40 Catheter removed. 13:12:25 A MULTIPACK 3DRC 5Fr catheter was advanced over the wire and used for Procedure. 13:14:09 GLIDE WIRE ANGLE 260cm (RR0202) opened to sterile field. 13:14:29 GLIDE WIRE USED TO ADVANCED CATHETER 13:15:47 WIRE REMOVED 13:15:50 KIMBROUGH to LAD angiography performed. 13:15:52 RCA angiography performed. 13:15:53 Catheter removed. 13:16:03 A DIAGNOSTIC AR2 MOD 5 Fr catheter ([id number]) was advanced over the wire and used for Procedure. 13:16:59 SVG to RCA angiography performed. 13:17:01 SVG to OM angiography performed. 13:17:08 Catheter removed. 13:17:10 EXOSEAL 5Fr (EX500) opened to sterile field. 13:17:24 Sheath removed intact; hemostasis achieved with Exoseal to the Right Femoral artery. 13:17:26 Procedure ended.(Physican Out) 13:17:40 Fluoroscopy time 03.60 minutes. 13:17:43 Flurop Dose total: 679 13:17:43 Fluoroscopy dose: 679 mGy 13:18:00 Contrast amount:Isovue 300 82ml. 13:18:01 Sharps counted by scrub and verified by R.N. 13:18:04 Post-op/insertion site Right Femoral artery dressed using a 4 x 4 and Tegaderm. 13:18:26 Post-procedure physical assessment completed. ASA score P 2 - A patient with mild systemic disease as per Parveen Nava MD. 13:18:39 Post procedure rhythm: unchanged. 13:18:42 Estimated blood loss: 5 ml 13:18:43 Post procedure instruction explained to patient.Patient verbalizes understanding. 13:18:43 Patient needs reinforcement of post procedure teaching. 13:19:15 Procedure and supply charges have been captured, reviewed, submitted and are correct. 13:19:17 Procedure Complication : No complications 13:19:21 Vital chart was stopped 13:19:24 See physician's report for complete and final results. 13:19:25 Report given to Pre/Post Procedure Room. 13:19:28 Patient transfered to Pre/Post Procedure Room with Bed. 13:19:30 Procedure ended. 13:19:30 Full Disclosure recording stopped 13:19:34 End room use (Document Last) Device Usage Item Name Manufacture Quantity Catalog Hospital Part Current Minimal L ot# / Number Charge Number Stock Stock Serial# Code ACIST Acist 1 86993 234997 352735 762690 20 Syringe Medical (34122) Systems Inc Bag Microtek 1 2001S 662306 19597 703483 5 Decanter Medical Inc. () ACIST Hand Acist 1 30181 040320 799593 734213 5 Control Medical (57670) Systems Inc ACIST Acist 1 51202 153619 130681 518511 5 Manifold Medical (38559) Systems Inc Tegaderm 4 3M 1 1626W 070650 365367 191665 5 x 4 (1626W) Medline Medline 1 [id number] 108642 42123 627268 5 Cath Pack ([id number]) DIAGNOSTIC Cardinal 1 AH6996 708074 51421 217393 30 Multipack Health 5Fr catheter set (XG1131) EMERALD Cardinal 1 502-455 768289 867009 312784 5 Guide Wire Health (502-455) SHEATH 5FR Terumo 1 YRV072 871477 239753 499060 5 [place] (GMS053) MULTIPACK Cardinal 1 669228 5 Pigtail 5 Health Fr catheter MULTIPACK Cardinal 1 274687 5 JL 4.0 5Fr Health catheter MULTIPACK Cardinal 1 629251 5 3DRC 5Fr Health catheter GLIDE WIRE Terumo 1 ZC5803 224037 391626 990324 5 ANGLE 260cm (TR5067) DIAGNOSTIC Cardinal 1 811282O 712160 159879 966479 20 AR2 MOD 5 Health Fr catheter ([id number]) EXOSEAL 5Fr Cardinal 1 EX500 481205 208437 298344 10 (EX500) Health Signature Audit Aurora Stage Time Signature Unsigned Intra-Procedure 04/30/2019 Janis Kaye 1:26:02 PM RT(R) Signatures Monitor : Janis Kaye Signature : RT Date : Time : [address] [address]
--- NOTE | ~2019-04-29 | OP ---
PATIENT NAME: CARLOS MANUEL GUTIERRES MEDICAL RECORD: [id number] :43 LOCATION:D.OPS ADMISSION DATE: SURGEON: JENN MCGRAW MD DATE OF OPERATION: 04/30/2019 PROCEDURES: 1. Left heart catheterization. 2. Selective coronary angiography. 3. Left ventriculogram. 4. Vein graft angiography. 5. KIMBROUGH angiography. INDICATION: Angina and coronary artery disease. PROCEDURE IN DETAIL: After informed consent was obtained and after a detailed description of the risks, benefits as well as alternative therapies, the patient elected to proceed with angiogram and heart catheterization. The right femoral area was prepped and draped in normal sterile fashion. Right femoral artery was cannulated via modified Seldinger technique with placement of 6-Jordanian sheath. All catheters exchanged through this sheath. FINDINGS: Left ventriculogram was performed in standard 30-degree PARSONS view, reveals good cardiac wall motion, ejection fraction 55%. SELECTIVE CORONARY ANGIOGRAPHY: 1. Left main showed no significant angiographic disease. 2. Left anterior descending has previously placed stents leading into a non-grafted diagonal. The stent and the diagonal are widely patent. After this, the LAD is totally occluded. 3. KIMBROUGH to the distal LAD is widely patent. Distal LAD is patent. 4. Left circumflex has a high-grade stenosis of the first obtuse marginal. 5. Vein graft to the first obtuse marginal is widely patent. 6. The right coronary is totally occluded mid vessel. 7. Vein graft to the right coronary is widely patent. Distal right coronary is widely patent. OVERALL IMPRESSION: Wide patency of the previously placed stents as well as wide patency of all the previously placed grafts. Continue medical management of the coronary artery disease and cardiac risk factors. TRANSINT:[id number] Voice Confirmation ID: [id number] DOCUMENT ID: [id number] JENN MCGRAW MD CC: [id number] DICTATION DATE: 04/30/19 1650 TROUBLE OPERATOR: 04/30/19 1856 DEP CLI 04/30/19 [facility] [address] [place] [id number]
--- NOTE | ~2019-04-29 | PN ---
PATIENT:CARLOS MANUEL GUTIERRES MEDICAL RECORD: [id number] LOCATION:D. D.212 ADMISSION DATE: 04/29/19 PROGRESS NOTE DATE OF SERVICE: 04/30/2019 DIAGNOSES: 1. Recurrent angina. 2. Coronary artery disease. 3. Previous left main PTCA stent August of last year. 4. Hypertension. 5. Hyperlipidemia. SUBJECTIVE: Ms. Gutierres was admitted with anginal symptomatology. She ruled out for myocardial infarction; however, she had a recurrent episode of chest pain with diaphoresis this morning, lasted approximately 30 minutes. At this time, her heart rate is in the 60s and systolic blood pressure is 100. We did do the addition of Imdur to her medical regimen and continue her cannula and beta blockade was not undertaken due to resting bradycardia. She is now on optimal medical therapy and had another episode of the chest pain with diaphoresis. Most likely, she does have recurrent hemodynamically significant coronary artery disease, falls into the intermediate risk category to high risk category with continued anginal chest discomfort despite maximal medical therapy. We will proceed with coronary angiography. TRANSINT:[id number] Voice Confirmation ID: [id number] DOCUMENT ID: [id number] JENN MCGRAW MD CC: [id number] DICTATION DATE: 04/30/19 1053 MANAGEMENT TECHNICIAN: 04/30/19 1124 REG [facility] [address] [id number]
[~2019-04-29 11:04] MED LIST changes: +CALAN120 MG PO
[2019-04-29 11:25] LABS: BASOPHILS 0.2 % (0-2); EOSINOPHILS 0.7 % (0-7); HEMATOCRIT 41.8 % (36.0-48.0); HEMOGLOBIN 13.9 g/dL (12-16); IMMATURE GRANULOCYTES 0.5 % (0-5); MCH 30.1 pg (26.0-34.0); MCHC 33.3 g/dL (31.0-37.0); MCV 90.5 fL (80.0-100.0); MEAN PLATELET VOLUME 9.7 fL (7.4-10.4); NEUTROPHILS 64.6 % (40-80); PLATELET COUNT 194 10x3/uL (130-400); RBC 4.62 10x6/uL (4.00-5.40); RDW 13.4 % (11.5-14.5)
[2019-04-29 11:32] LABS: INR 1.03 (0.85-1.17)
[2019-04-29 11:45] LABS: ALBUMIN 3.2 g/dL (3.4-5.0); ALKALINE PHOSPHATASE 124 U/L (46-116); ALT (SGPT) 27 U/L (10-68); BILIRUBIN - TOTAL 0.31 mg/dL (0.2-1.3); CALC OSMOLALITY 278 mosm/kg (275-300); CALCIUM 8.9 mg/dL (8.5-10.1); CARBON DIOXIDE 27.2 mmol/L (21.0-32.0); CHLORIDE - SERUM 103 mmol/L (98-107); CREATININE - SERUM 1.2 mg/dL (0.6-1.3); GLUCOSE 90 mg/dL (74-106); POTASSIUM - SERUM 4.3 mmol/L (3.5-5.1); PROTEIN - SERUM 7.7 g/dL (6.4-8.2); SODIUM 138 mmol/L (136-145); UREA NITROGEN 22 mg/dL (7-18); eGFR NON AFRICAN AMERICAN 46 mL/min (90-120)
[2019-04-29 11:56] LABS: CKMB 0.7 U/L (0.0-3.6); CREATINE KINASE 42 UL (21-215); MAGNESIUM - SERUM 1.9 mg/dL (1.8-2.4)
[2019-04-29 11:59] LABS: TROPONIN-I < 0.017 ng/mL (0.000-0.060)
--- NOTE | 2019-04-29 13:23 | NUR ---
RECIEVED FROM ER. ALERT AND ORIENTED. TELEMERTY SHOWS PACED RHYTHM. 02 AT 2 L/M PER NC. LEFT FA SL. NPO FOR NOW.SR UP WITH CALL LIGHT IN REACH
[2019-04-29 13:33] VITALS: BP 141/69; Ht 172.7 cm; Wt 90.9 kg
--- NOTE | 2019-04-29 13:42 | NUR ---
ASSESSMENT COMPLETE AAOX4 VERY PLEASANT 73 Y/O W/F RESP UNLABORED SKIN W/D COLOR WNL TELEMETRY APPLIED ATRIAL PACING WITH UNDERLYING SR WITH 1 ST DEGREE BLOCK RATE 60 LFA SALINE LOCK INTACT SITE FREE OF REDNESS OR EDEMA NAD NOTED
[2019-04-29 16:57] VITALS: BP 105/50
[2019-04-29 17:25] LABS: CKMB 0.4 U/L (0.0-3.6); CREATINE KINASE 32 UL (21-215)
[2019-04-29 17:27] LABS: TROPONIN-I < 0.017 ng/mL (0.000-0.060)
--- NOTE | 2019-04-29 17:52 | NUR ---
LYING QUIETLY. EYES CLOSED. TELEMERTY SHOWS PACED RHYTHM. NO NEEDS NOTED
--- NOTE | 2019-04-29 19:15 | NUR ---
RECEIVED REPORT, WILL ASSUME CARE OF PT, PT IS SLEEPING, NO DISTRESS NOTICED, BED IS LOW, SRX2, CALL LIGHT IN REACH, WILL CONTINUE PLAN OF CARE
[2019-04-29 20:15] VITALS: BP 98/44
[2019-04-29 23:25] LABS: CKMB 0.4 U/L (0.0-3.6); CREATINE KINASE 27 UL (21-215); TROPONIN-I < 0.017 ng/mL (0.000-0.060)
[2019-04-30] VITALS: BP 97/62
[2019-04-30 07:04] LABS: BASOPHILS 0.2 % (0-2); EOSINOPHILS 0.6 % (0-7); HEMATOCRIT 37.2 % (36.0-48.0); HEMOGLOBIN 12.2 g/dL (12-16); IMMATURE GRANULOCYTES 0.7 % (0-5); LYMPHOCYTES 22.1 % (15-50); MCH 29.8 pg (26.0-34.0); MCHC 32.8 g/dL (31.0-37.0); MEAN PLATELET VOLUME 9.8 fL (7.4-10.4); MONOCYTES 6.8 % (2-11); NEUTROPHILS 69.6 % (40-80); PLATELET COUNT 182 10x3/uL (130-400); RBC 4.09 10x6/uL (4.00-5.40); RDW 13.4 % (11.5-14.5); WBC 11.8 10x3/uL (4.8-10.8)
--- NOTE | 2019-04-30 07:10 | NUR ---
PT RESTING EYES CLOSED. ASSESSMENT DONE. RESPIRATIONS EVEN AND UNLABORED. NO DISTRESS NOTED. WILL CONTINUE TO MONITOR
[2019-04-30 07:27] VITALS: BP 103/41
[2019-04-30 07:32] LABS: ALBUMIN 2.7 g/dL (3.4-5.0); ALKALINE PHOSPHATASE 105 U/L (46-116); ALT (SGPT) 23 U/L (10-68); BILIRUBIN - TOTAL 0.38 mg/dL (0.2-1.3); CALC OSMOLALITY 278 mosm/kg (275-300); CALCIUM 8.7 mg/dL (8.5-10.1); CARBON DIOXIDE 29.4 mmol/L (21.0-32.0); CHLORIDE - SERUM 105 mmol/L (98-107); CKMB 0.4 U/L (0.0-3.6); CREATINE KINASE 23 UL (21-215); CREATININE - SERUM 1.2 mg/dL (0.6-1.3); GLUCOSE 106 mg/dL (74-106); POTASSIUM - SERUM 4.9 mmol/L (3.5-5.1); PROTEIN - SERUM 6.6 g/dL (6.4-8.2); SODIUM 138 mmol/L (136-145); UREA NITROGEN 22 mg/dL (7-18); eGFR NON AFRICAN AMERICAN 46 mL/min (90-120)
[2019-04-30 07:34] LABS: TROPONIN-I < 0.017 ng/mL (0.000-0.060)
--- NOTE | 2019-04-30 09:50 | HP ---
PATIENT: CARLOS MANUEL GUTIERRES MEDICAL RECORD: [id number] ACCOUNT: [id number] LOCATION:. D.2119 : 43 ADMISSION DATE: 04/29/19 PCP: ALEX ZAPATA MD HISTORY AND PHYSICAL EXAMINATION DIAGNOSES: 1. Unstable angina. 2. Coronary artery disease. 3. PTCA and stent, multivessel, in August of last year including left main. 4. Peripheral vascular disease. 5. Hypertension. HISTORY OF PRESENT ILLNESS: Mrs. Gutierres presents with sudden onset today of severe chest discomfort associated with diaphoresis, nausea, and shortness of breath. She had multiple hours of chest discomfort today. It was like that of her previous angina but worse. She did not end up throwing up. She presented to the Emergency Room, was relieved with multiple nitro. She is currently pain free. Her EKG is with no acute ST-T abnormalities. She is currently on Calan. She is not on a beta-sonia due to resting bradycardia. Systolic blood pressure is in 140s and heart rate is 60. PHYSICAL EXAMINATION: GENERAL APPEARANCE: Well-nourished, well-developed, appears stated age. Level of distress, comfortable. PSYCHIATRIC: Mental status, alert, normal affect. Orientation, oriented to time, place and person. EYES: Lids and conjunctiva, noninjected. No discharge, no pallor. ENT: Lips, teeth, gums, normal dentition. Oropharynx, no cyanosis, no pallor. NECK: Carotid arteries, bilateral normal upstroke, no bruits, no thrills. JUGULAR VEINS: No jugular venous pressure or distention. CERVICAL LYMPH NODES: Nontender, nonenlarged. THYROID: Not enlarged. Nontender. No nodules. LUNGS: Respiratory effort, unlabored. CHEST: Normal curvature. No thoracic deformity. No chest wall tenderness. Percussion, resonant. Auscultation, clear. No wheezes, no rales, no rhonchi. CARDIOVASCULAR: Precordial exam, nondisplaced. No heaves or pericardial thrills. Rate and rhythm, regular. Heart sounds, normal S1, normal S2. No S3, no gallop, no rub. Systolic murmur, not heard. Diastolic murmur, not heard. EXTREMITIES: No cyanosis, no edema. Peripheral pulses, full and equal in all extremities, except as noted. No bruits appreciated. ABDOMEN: Soft, nondistended. Normal aorta. No bruit. Nontender. No masses. Liver, nontender, no hepatomegaly. Spleen, nontender, no splenomegaly. MUSCULOSKELETAL: No joint tenderness. No joint swelling. No erythema. NEUROLOGICAL: Normal gait, normal strength, normal tone. SKIN: Warm and dry. OVERALL IMPRESSION: Unstable angina in a patient with aspirin in the past 24 hours, age greater than 65, and past history of coronary artery disease, puts her at least intermediate risk for an event, especially due to the severity of the pain and just like that of her previous pain associated with nausea, vomiting, diaphoresis, shortness of breath, especially because she had left main stenting in last August. She would be in the window for in-stent restenosis of that. We will add long-acting nitrates. If she has any further symptomatology, I would proceed with coronary angiography. HISTORY AND PHYSICAL [id number] CARLOS MANUEL GUTIERRES TRANSINT:[id number] Voice Confirmation ID: [id number] DOCUMENT ID: [id number] JENN MCGRAW MD at 0950 CC: [id number] DICTATION DATE: 04/29/19 1451 CLINICAL WRITER: 04/29/19 1612 REG [facility] [address] [id number]
--- NOTE | 2019-04-30 13:35 | NUR ---
PT RECEIVED VIA STRECTHCER FROM AGRI BUSINESS AGENT FOR RECOVERY. PT SLEEPING BUT AROUSABLE TO VERBAL STIMULI. IV PATENT INFUSING VIA ORDERS TO L FOREARM. 5FR EXOCELE TO R GROIN, DRESSING CDI NO BLEEDING OR SWELLING NOTED. R LEG PINK AND WARM, PEDAL PULSES PALPABLE. HR NSR RATE 65, BP 110/58, O2 O VIA NC AT 2L. SAT 94. PT INSTRUCTED TO KEEP HEAD FLAT ON PILLOW AND LEG STRAIGHT, SHE VERBALIZED UNDERSTANDING. CALL LIGHT IN REACH. NO FAMILY PRESENT AT THIS TIME
--- NOTE | 2019-04-30 14:00 | NUR ---
PT REMAINS SLEEPING, GROIN DRESSING REMAINS CDI NO BLEEDING OR HEMATOMA NOTED. LEG PINK AND WARM, PEDAL PULSES PALPABLE. VSS. HR PACED AT 58, BP 112/52, O2 SAT 99. CALL LIGHT IN REACH. PHONED PT'S CONTACT FOR RIDE HOME AND LEFT MESSAGE.
--- NOTE | 2019-04-30 14:39 | NUR ---
R GROIN SOFT TO TOUCH, NO BLEEDING OR HEMATOMA NOTED. LEG PINK AND WARM, PEDAL PULSES PALPABLE. HOB ELEVATED SLIGHTLY, SANDWICH AND DRINK SERVED. O2 REMOVED. CALL LIGHT IN REACH
--- NOTE | 2019-04-30 15:00 | NUR ---
PT RESTING W/O COMPLAINTS. GROIN SOFT TO TOUCH, NO BLEEDING OR HEMATOMA NOTED. CALL LIGHT IN REACH, DENIES NEEDS
--- NOTE | 2019-04-30 15:20 | NUR ---
IV REMOVED W CATH INTACT. DISCHARGE INSTRUCTIONS REVIEWED W PT AND FAMILY BOTH VERBALIZED UNDERSTANDING. MONITORS REMOVED AND PT UP TO DRESS FOR DISCHARGE.
--- NOTE | 2019-04-30 15:30 | NUR ---
PT DISCHARGED VIA WC TO PRIVATE VEHICLE WITH ALL BELONGINGS.
== END 2019-04-30 15:30 | disposition home or self-care (01) ==
LOC: D.OPS 11:04 → D.M2 11:04 → D.ER 11:04 → D.M2 12:00 → EDSTATUS 12:06 → D.CLR 04-30 13:30 → D.OPS 04-30 15:30
PROVIDERS: Family Medicine; ATTEND Internal Medicine Interventional Cardiology
DX: R07.9 Chest pain, unspecified (principal); I24.9 Acute ischemic heart disease, unspecified

== ENCOUNTER 2019-06-28 08:54 | Emergency (ER) | payer MEDICARE, BC ==
[~2019-06-28] VITALS: Ht 172.7 cm; Wt 90.9 kg
[2019-06-28 08:57] VITALS: Ht 172.7 cm; Wt 90.9 kg
[2019-06-28] MEDS ORDERED: ACETAMINOPHEN500 M1 PO (11:56)
[2019-06-28] MEDS ORDERED: IBUPROFEN800 MG PO (11:56)
[2019-06-28] MEDS ORDERED: CYCLOBENZAPRINE10 MG PO (11:56)
[2019-06-28 12:22] VITALS: BP 125/72
== END 2019-06-28 12:27 | disposition home or self-care (01) ==
LOC: D.ER 08:54
DX: S80.01XA Contusion of right knee, initial encounter (principal); W18.31XA Fall on same level due to stepping on an object, initial encounter; Y93.89 Activity, other specified; Y92.89 Other specified places as the place of occurrence of the external cause; M23.91 Unspecified internal derangement of right knee

== ENCOUNTER 2019-09-11 08:04 | Outpatient (CLI) | payer MEDICARE, BC ==
[~2019-09-11] VITALS: Ht 172.7 cm; Wt 86.8 kg
--- NOTE | ~2019-09-11 | HEMODYNAMI ---
PATIENT:CARLOS MANUEL GUTIERRES MEDICAL RECORD: [id number] : 43 LOCATION:[facility] ADMISSION DATE: 09/11/19 Generatedon:09/11/201916:56 Patient name: CARLOS MANUEL GUTIERRES Patient #: [id number] SSN: [id number] : 1945 Date of study: 09/11/2019 Page: Of Hemodynamic Procedure Report Patient Data Patient Demographics Procedure consent was obtained First Name: CALROS MANUEL Gender: Female Last Name: BHAVIK : 1945 [facility] Initial: D Age: 74 year(s) Patient #: [id number] Race: SSN: [id number] Additional ID: [id number] Contact details [address]: [address] [place] [address] State: [place] City: [place] Zip code: [address] Past Medical History History of disease Date Diagnosis Comments CAD Allergies Allergen Reaction Date Comments Reported Other allergy 04/19/2016 Codeine Codeine 04/18/2018 Codeine 09/05/2018 Other allergy 02/19/2019 Codeine Codeine 04/30/2019 Codeine 09/11/2019 Admission Admission Data Admission Date: 09/11/2019 Admission Time: 8:04 Arrival Date: 09/11/2019 Arrival Time: 0:00 Admit Source: Emergency department Height (in.): 68 BSA: 2.05 (m2) Height (cm.): 172.72 BMI: 30.5 (kg/m2) Weight (lbs.): 200.62 Weight (kg.): 91 Lab Results Lab Result Date: 09/11/2019 Lab Result Time: 0:00 Biochemistry Name Units Result Min Max BUN mg/dl 20 --(----)*- 7 18 Creatinine mg/dl 1.1 --(--*-)-- 0.6 1.3 eGFR ml/min 51 *-(----)-- 90 120 NONAFRICAN CBC Name Units Result Min Max Hematocrit % 40.5 -*(----)-- 42 54 Hemoglobin g/dl 13.3 -*(----)-- 13.5 17.5 Procedure Procedure Types Cath Procedure Diagnostic Procedure [facility] w/Coronaries w/Grafts Sedation Charges Moderate Sedation up to 15 minutes PCI Procedure Coronary Stent Coronary Stent Initial Procedure Description Procedure Date Procedure Date: 09/11/2019 Procedure Start Time: 16:12 Procedure End Time: 16:55 Procedure Staff Name Function Parveen Nava MD Performing Physician Qing Petersen RT Monitor Janis Kaye RT Monitor Mey Guardado RT Scrub Curtis Charles RN Nurse Indication CAD Procedure Data Cath Procedure Fluoroscopy Diagnostic fluoroscopy Total fluoroscopy Time: time: 12.5 min 12.5 min Diagnostic fluoroscopy Total fluoroscopy dose: dose: 1279 mGy 1279 mGy Contrast Material Contrast Material Type Amount (ml) Isovue 300 184 Entry Location Entry Primary Successful Side Size Upsize Upsize Entry Closure Succes sful Closure Location (Fr) 1 (Fr) 2 (Fr) Remarks Device Remarks Femoral Right 6 Fr 6 Fr Exoseal artery Short Short Estimated blood loss: 10 ml Diagnostic catheters Device Type Used For End Catheter Placement MULTIPACK Pigtail 5 Fr LV Angiography catheter MULTIPACK JL 4.0 5Fr Left Coronary catheter Angiography MULTIPACK 3DRC 5Fr Right Coronary catheter Angiography DIAGNOSTIC AR2 MOD 5 Fr Procedure catheter ([id number]) Procedure Complications No complications Procedure Medications Medication Administration Route Dosage 0.9% NaCl I.V. 100 ml/hr Oxygen etCO2 Nasal cannula 2 l/min Heparin Flush Bag added to field 2 bags (1000units/500ml NS) Lidocaine 2% added to field 20 Versed I.V. 1 mg Fentanyl I.V. 50 mcg Plavix P.O. 75 mg Versed I.V. 1 mg Fentanyl I.V. 50 mcg Heparin Bolus I.V. 4000 units Hemodynamics Rest BSA: 2.05 (m2) HGB: 13.3 (g/dl) O2 Consumption: Estimated: 179.81 (ml/min) O2 Co nsumption indexed: Estimated:87.71 (ml/min/m) Heart Rate: 61 (bpm) Snapshots Pre Cath Intra NCS Post Cath Vital Signs Time Heart Resp SPO2 etCO2 NIBP (mmHg) Rhythm Pain Sedation Rate (ipm) (%) (mmHg) Status Level (bpm) 16:05:30 61 13 100 23.5 148/79(117) NSR 0 (11) 10(A) , No pain 16:10:02 60 14 99 44.9 146/79(124) NSR 0 (11) 10(A) , No pain 16:14:34 63 12 99 32.6 141/77(117) NSR 0 (11) 10(A) , No pain 16:19:03 64 14 100 45.6 149/79(117) NSR 0 (11) 9(A) , No pain 16:23:37 68 14 98 44.1 146/73(122) NSR 0 (11) 10(A) , No pain 16:27:59 76 16 97 41 132/66(100) NSR 0 (11) 10(A) , No pain 16:32:26 74 14 98 37.2 146/75(116) NSR 0 (11) 10(A) , No pain 16:36:58 73 18 98 39.5 155/78(115) NSR 0 (11) 10(A) , No pain 16:47:02 70 12 98 41.8 142/79(117) NSR 0 (11) 10(A) , No pain 16:51:26 70 16 98 41.8 138/77(123) NSR 0 (11) 10(A) , No pain Medications Time Medication Route Dose Verified Delivered Reason Notes Effectiveness by by 16:03:33 0.9% NaCl I.V. 100 Curtis Curtis Per physician ml/hr Araceli Charles RN RN 16:03:42 Oxygen etCO2 2 Curtis Curtis for low 02 sats Nasal l/min Araceli Charles cannula RN RN 16:03:52 Heparin Flush added 2 Curtis Curtis used for Bag to bags Araceli Charles procedure (1000units/500ml field RN RN NS) 16:04:04 Lidocaine 2% added 20ml Curtis Curtis for local to vial Araceli Charles anesthetic field FRANKLIN RN 16:04:56 Plavix P.O. 75 mg Curtis Curtis for Araceli Charles antiplatelet RN RN therapy 16:09:04 Versed I.V. 1 mg Curtis Curtis for sedation Araceli Charles RN RN 16:09:12 Fentanyl I.V. 50 Curtis Curtis for sedation mcg Araceli Charles RN RN 16:13:01 Versed I.V. 1 mg Curtis Curtis for sedation Araceli Charles RN, RN 16:13:06 Fentanyl I.V. 50 Curtis Curtis for sedation mcg Araceli Charles RN, RN 16:23:25 Heparin Bolus I.V. 4000 Curtis Curtis for units Araceli Charles anticoagulation RN front desk attendant Log Time Note 15:27:17 Informed consent obtained and on chart 15:27:48 Procedure Status Urgent Heart Cath (IP). 15:27:50 Time tracking: Regular hours (M-F 7:00 - 5:00) 15:27:53 Plan of Care:Hemodynamics will remain stable., Cardiac rhythm will remain stable., Comfort level will be maintained., Respiratory function will remain adequate., Patient/ family verbilizes understanding of procedure., Procedure tolerated without complication., Recovers from procedure without complications.. 15:27:56 Curtis Charles RN sent for patient. Start room use. 15:29:23 H&P Date Dictated: 09/11/2019 ER History on chart.. 15:29:31 Patient allergic to Codeine 15:29:59 Lab Result : BUN 20 mg/dl 15:29:59 Lab Result : Creatinine 1.1 mg/dl 15:29:59 Lab Result : eGFR NONAFRICAN 51 ml/min 15:29:59 Lab Result : Hematocrit 40.5 % 15:29:59 Lab Result : Hemoglobin 13.3 g/dl 15:34:25 Risk of Mortality: .1 15:34:28 Risk of blood transfusion: .6 15:34:31 Risk of SAGAR: 1.4 15:38:49 Patient Weight : 200.62 lbs 15:38:55 Patient Height : 68 inches 15:39:00 Admit Source: Emergency department 15:39:03 Arrival Date: 09/11/2019 12:00:00 AM 15:41:19 Indication : CAD 15:41:37 ACC Patient presents with Unstable Angina CCS Anginal Class 4--Inability to carry out any physical activity w/o angina. Angina may occur at rest. 15:52:21 Patient received from ED to CCL 1 Alert and oriented. Tansferred to table in Supine position. 15:52:22 Warm blankets applied, and gallito hugger turned on for patient comfort. 15:52:22 Correct patient and procedure confirmed by team. 15:52:23 ECG and BP/O2 sat monitors applied to patient. 15:57:05 Pre-procedure instructions explained to patient. 15:57:06 Pre-op teaching completed and patient verbalized understanding. 15:57:08 Family unavailable. 15:57:11 Patient NPO since Midnight. 15:57:24 Is the patient allergic to Iodine/contrast media? No. 15:57:26 Was the patient premedicated? Yes 15:57:30 Is patient on blood thinner?Yes 15:57:35 ACC The patient was administered the following blood thiners within the last 24 hours: ACCPlavix 15:57:39 Patient diabetic? No. 15:57:44 Patient not . Patient is over age 55. 15:57:47 ----Pre-sedation anethsthesia assessment.---- 15:57:52 Previous problem with sedation/anesthesia? No ? 15:57:55 Snore? Yes 15:57:57 Sleep apnea? No 15:58:00 Deviated septum? No 15:58:02 Opens mouth fully? Yes 15:58:04 Sticks out tongue? Yes 15:58:08 Airway obstruction? No ? 15:58:37 Dentures? No ? 15:58:39 - 16:00:25 Pre procedure: right dorsailis pedis pulse 1+ Palpable, but thready & weak; easily obliterated 16:00:31 Patient pain scale 0/10 ?. 16:00:49 IV patent on arrival in left forearm with 0.9% NaCl at KVO. 16:01:07 Lab results completed and on chart. 16:02:07 Stress Test: no; N/A ? 16:02:15 Right groin area was prepped with chlora-prep and draped in sterile fashion 16:02:17 Alarms reviewed by [place] 16:02:18 Sharps counted by scrub and verified by R.N. 16:02:25 Use device set Femoral Dx 16:02:27 ACIST Syringe (78678) opened to sterile field. 16:02:28 Bag Decanter (2001S) opened to sterile field. 16:02:30 Medline Cath Pack ([id number]) opened to sterile field. 16:02:32 ACIST Hand Control (23312) opened to sterile field. 16:02:33 ACIST Manifold (99245) opened to sterile field. 16:02:37 DIAGNOSTIC Multipack 5Fr catheter set (WR2660) opened to sterile field. 16:02:42 Tegaderm 4 x 4 (1626W) opened to sterile field. 16:02:44 SHEATH 5FR Berino (AZO084) opened to sterile field. 16:02:46 EMERALD Guide Wire (675-165) opened to sterile field. 16:03:33 0.9% NaCl 100 ml/hr I.V. was administered by Curtis Charles RN; Per physician; Verbal order read back and verified. 16:03:42 Oxygen 2 l/min etCO2 Nasal cannula was administered by Curtis Charles RN; for low 02 sats; Verbal order read back and verified. 16:03:52 Heparin Flush Bag (1000units/500ml NS) 2 bags added to field was administered by Curtis Charles RN; used for procedure; Verbal order read back and verified. 16:04:04 Lidocaine 2% 20ml vial added to field was administered by Curtis Charles RN; for local anesthetic; Verbal order read back and verified. 16:04:09 Vital chart was started 16:04:56 Plavix 75 mg P.O. was administered by Curtis Charles RN; for antiplatelet therapy; Verbal order read back and verified. 16:08:01 Baseline sample Acquired. 16:08:08 Rhythm: sinus rhythm 16:08:11 Full Disclosure recording started 16:08:27 Physician arrived 16:08:28 --------ALL STOP TIME OUT------ 16:08:29 Final Timeout: patient, procedure, and site verified with staff and physician. All members of the team are in agreement. 16:08:33 Right groin site verified by team. 16:08:44 Fire Safety Assessment: A--An alcohol-based skin anteseptic being used preoperatively., C--Open oxygen or nitrous oxide is being used., D--An ESU, laser, or fiber-optic light is being used. 16:08:48 Physical assessment completed. ASA score P 2 - A patient with mild systemic disease as per Parveen Nava MD. 16:08:55 3a) 45-59 Moderately reduced kidney function. 16:09:00 Maximum allowable contrast dose (3.7 X eGFR X 0.75)142 ml. 16:09:04 Versed 1 mg I.V. was administered by Curtis Charles RN; for sedation; Verbal order read back and verified. 16:09:06 Sedation plan: IV Moderate Sedation Medication:Versed, Fentanyl 16:09:12 Fentanyl 50 mcg I.V. was administered by Curtis Charles RN; for sedation; Verbal order read back and verified. 16:12:08 Procedure started. 16:12:15 Local anesthetic to right femoral artery with Lidocaine 2% by Parveen Nava MD.INITIAL ACCESS ONLY 16:12:20 Zero performed for pressure channel P1 16:13:01 Versed 1 mg I.V. was administered by Curtis Charles RN; for sedation; Verbal order read back and verified. 16:13:06 Fentanyl 50 mcg I.V. was administered by Curtis Charles RN; for sedation; Verbal order read back and verified. 16:13:15 A 6 Fr Short sheath was inserted into the Right Femoral artery 16:13:27 A MULTIPACK Pigtail 5 Fr catheter was advanced over the wire and used for LV Angiography. 16:13:29 LV gram done using PARSONS 16:13:34 Injector settings: Ml/sec: 10, Volume: 20, 16:13:46 EF : 55 % 16:13:50 Catheter removed. 16:13:56 A MULTIPACK JL 4.0 5Fr catheter was advanced over the wire and used for Left Coronary Angiography. 16:14:30 LCA angiography performed. 16:15:04 Catheter removed. 16:15:14 A MULTIPACK 3DRC 5Fr catheter was advanced over the wire and used for Right Coronary Angiography. 16:16:31 GLIDE WIRE ANGLE 260cm (TR7619) opened to sterile field. 16:16:55 glidewire 260 wire advanced. 16:18:06 KIMBROUGH to LAD angiography performed. 16:19:39 RCA angiography performed. 16:19:42 Catheter removed. 16:20:14 A DIAGNOSTIC AR2 MOD 5 Fr catheter ([id number]) was advanced over the wire and used for Procedure. 16:20:42 SVG to OM angiography performed. 16:20:52 SVG to RCA angiography performed. 16:20:55 Catheter removed. 16:20:57 Proceeding to intervention. 16:21:08 SHEATH 6FR Berino (IUZ025) opened to sterile field. 16:21:10 INFLATOR Merit BasixCompak (XH0978) opened to sterile field. 16:21:28 CHOICE PT Extra Support 182cm wire ([id number]) opened to sterile field. 16:21:52 Sheath upsized to a 6 Fr Short. 16:22:09 Pre PCI Site: Teller mLAD has 95% stenosis. 16:22:25 GUIDE 6FR XBLAD 3.5 catheter ([id number]) opened to sterile field. 16:22:36 6 Fr xblad 3.5 guide catheter was inserted over the wire 16:23:25 Heparin Bolus 4000 units I.V. was administered by Curtis Charles RN; for anticoagulation; Verbal order read back and verified. 16:24:46 Guide catheter removed. 16:25:02 GUIDE 6FR XBLAD 4.0 catheter (14276225) opened to sterile field. 16:25:22 6 Fr xblad4 guide catheter was inserted over the wire 16:25:54 choice pt wire advanced. 16:27:11 Wire advanced across lesion. 16:28:17 Inflate balloon Inflation number: 1 A EUPHORA 2.0 x 12 Balloon ([id number]) was prepped and advanced across the Mid LAD , then inflated to 17 DARRYL for 0:10 (min:sec) . 16:29:01 Inflation number: 2 The EUPHORA 2.0 x 12 Balloon ([id number]) was reinflated across the Mid LAD , to 7 DARRYL for 0:00 (min:sec) . 16:29:22 Balloon removed over the wire. 16:30:55 The KIMBERLY RX 2.25 x 18 stent ([id number]) was advanced then removed because of failure to cross lesion 16:33:00 The EUPHORA 2.5 x 20 Balloon ([id number]) was advanced and then removed because of failure to cross lesion 16:34:03 Inflate balloon Inflation number: 3 A EUPHORA 2.5 x 20 Balloon ([id number]) was prepped and advanced across the Mid LAD , then inflated to 21 DARRYL for 0:00 (min:sec) . 16:34:21 Inflation number: 4 The EUPHORA 2.5 x 20 Balloon ([id number]) was reinflated across the Mid LAD , to 23 DARRYL for 0:00 (min:sec) . 16:34:28 Balloon removed over the wire. 16:36:14 The KIMBERLY RX 2.25 x 18 stent ([id number]) was advanced then removed because of failure to cross lesion 16:36:55 ACT drawn and resulted at 281 seconds. (normal therapeutic range 180-24 0 seconds). 16:37:30 Inflate balloon Inflation number: 5 A EUPHORA 3.0 x 20 Balloon ([id number]) was prepped and advanced across the Mid LAD , then inflated to 21 DARRYL for 0:00 (min:sec) . 16:37:48 Inflation number: 6 The EUPHORA 3.0 x 20 Balloon ([id number]) was reinflated across the Mid LAD , to 21 DARRYL for 0:00 (min:sec) . 16:37:55 Balloon removed over the wire. 16:39:12 The KIMBERLY RX 2.25 x 18 stent ([id number]) was advanced then removed because of failure to cross lesion 16:41:38 Place stent Inflation Number: 7 A INTEGRITY RX 2.5 x 14 stent ([id number]) was prepped and advanced across the Mid LAD . The stent was deployed at 11 DARRYL for 0:00 (min:sec) . 16:42:02 Inflation number: 8 The stent balloon was then re-inflated across the Mid LAD to 5 DARRYL for 0:00 (min:sec) . 16:42:35 Stent catheter was removed intact over wire. 16:45:39 The KIMBERLY RX 2.0 x 8 stent ([id number]) was advanced then removed because of failure to cross lesion 16:45:49 Stent catheter was removed intact over wire. 16:45:51 Wire removed. 16:46:02 Guide catheter removed. 16:46:33 EXOSEAL 6Fr (EX600) opened to sterile field. 16:46:50 Sheath removed intact; hemostasis achieved with Exoseal to the Right Femoral artery. 16:46:57 Procedure ended.(Physican Out) 16:47:27 Fluoroscopy time 12.50 minutes. 16:47:32 Flurop Dose total: 1279 16:47:32 Fluoroscopy dose: 1279 mGy 16:47:46 Dose Area Product 87395 mGy/cm. 16:47:50 Maximum allowable dose exceeded? Yes. 16:47:52 Sharps counted by scrub and verified by R.N. 16:47:55 Insertion/operative site no bleeding no hematoma. 16:48:00 Post-op/insertion site Right Femoral artery dressed using a 4 x 4 and Tegaderm. 16:48:06 Post right femoral artery:stable 16:48:10 Post Procedure Pulses reassessed and unchanged 16:48:19 Post-procedure physical assessment completed. ASA score P 2 - A patient with mild systemic disease as per Parveen Nava MD. 16:48:23 Post procedure rhythm: unchanged. 16:48:27 Estimated blood loss: 10 ml 16:48:29 Post procedure instruction explained to patient.Patient verbalizes understanding. 16:48:30 Patient needs reinforcement of post procedure teaching. 16:49:41 Procedure type changed to Cath procedure, Diagnostic procedure, LHC, C w/Coronaries w/Grafts, Sedation Charges, Moderate Sedation up to 15 minutes, PCI procedure, Coronary Stent, Coronary Stent Initial 16:49:43 Procedure and supply charges have been captured, reviewed, submitted an d are correct. 16:53:52 Procedure Complication : No complications 16:54:02 Contrast amount:Isovue 300 184ml. 16:54:12 Vital chart was stopped 16:54:16 [facility] Findings: MVD- PCI performed (see procedure note) 16:54:31 Operative report dictated upon procedure completion. 16:54:33 See physician's report for complete and final results. 16:54:51 Report given to [facility]. 16:54:57 Patient transfered to [facility] with Bed. 16:55:00 Procedure ended. 16:55:00 Full Disclosure recording stopped 16:55:08 End room use (Document Last) Intervention Summary Intervention Notes Time ActionType Lesion and Equipment Used Action# Pressure Duration Attributes 16:28:17 Inflate Mid LAD EUPHORA 2.0 x 1 17 00:10 balloon 12 Balloon ([id number]) 16:29:01 Reinflate Mid LAD EUPHORA 2.0 x 2 7 00:00 balloon 12 Balloon ([id number]) 16:30:55 Discard KIMBERLY RX 2.25 x Stent 18 stent ([id number]) 16:33:00 Discard EUPHORA 2.5 x Balloon 20 Balloon ([id number]) 16:34:03 Inflate Mid LAD EUPHORA 2.5 x 3 21 00:00 balloon 20 Balloon ([id number]) 16:34:21 Reinflate Mid LAD EUPHORA 2.5 x 4 23 00:00 balloon 20 Balloon ([id number]) 16:36:14 Discard KIMBERLY RX 2.25 x Stent 18 stent ([id number]) 16:37:30 Inflate Mid LAD EUPHORA 3.0 x 5 21 00:00 balloon 20 Balloon ([id number]) 16:37:48 Reinflate Mid LAD EUPHORA 3.0 x 6 21 00:00 balloon 20 Balloon ([id number]) 16:39:12 Discard KIMBERLY RX 2.25 x Stent 18 stent ([id number]) 16:41:38 Place stent Mid LAD INTEGRITY RX 7 11 00:00 2.5 x 14 stent ([id number]) 16:42:02 Reinflate Mid LAD INTEGRITY RX 8 5 00:00 stent 2.5 x 14 stent balloon ([id number]) 16:45:39 Discard KIMBERLY RX 2.0 x Stent 8 stent ([id number]) Device Usage Item Name Manufacture Quantity Catalog Number [facility] Part Current M inimal Lot# / Charge Number Stock Stock Serial# Code ACIST Syringe Acist 1 26380 000130 472930 309153 2 0 (21077) Medical Systems Inc Bag Decanter Microtek 1 016571 56629 761686 5 () Medical Inc. Medline Cath Medline 1 [id number] 899009 63129 177007 5 Pack ([id number]) ACIST Hand Acist 1 24869 283359 695294 072732 5 Control Medical (13243) Systems Inc ACIST Manifold Acist 1 84967 828484 697876 893700 5 (09694) Medical Systems Inc DIAGNOSTIC Cardinal 1 DA8215 805793 47216 335350 3 0 Multipack 5Fr Health catheter set (VJ9726) Tegaderm 4 x 4 3M 1 1626W 630951 743752 651231 5 (1626W) SHEATH 5FR Terumo 1 MNY861 633064 911960 282638 5 Berino (MWU775) EMERALD Guide Cardinal 1 502-455 526370 754532 570585 5 Wire (502-455) Health MULTIPACK Cardinal 1 776640 5 Pigtail 5 Fr Health catheter MULTIPACK JL Cardinal 1 545549 5 4.0 5Fr Health catheter MULTIPACK 3DRC Cardinal 1 175384 5 5Fr catheter Health GLIDE WIRE Terumo 1 RL1708 655664 202286 997822 5 ANGLE 260cm (IF1750) DIAGNOSTIC AR2 Cardinal 1 295236W 410278 640926 245355 2 0 MOD 5 Fr Health catheter (928154N) SHEATH 6FR Terumo 1 UYD424 054909 940674 709248 4 0 Berino (YTL791) INFLATOR Merit Merit 1 PN3984 359722 804779 664033 1 5 Mark One (DH5250) CHOICE PT Batchelor 1 [id number] 475767 498076 678033 5 Extra Support Scientific 182cm wire (9065849T6) GUIDE 6FR Cardinal 1 97884340 961720 252436 824335 1 0 XBLAD 3.5 Health catheter (66832352) GUIDE 6FR Cardinal 1 65246257 223488 675639 939794 3 XBLAD 4.0 Health catheter (65041250) EUPHORA 2.0 x Medtronic 1 [id number] 452491 374460 214692 5 [id number] 12 Balloon ([id number]) KIMBERLY RX 2.25 x Medtronic 1 [id number] 924379 1853551 998965 5 [id number] 18 stent ([id number]) EUPHORA 2.5 x Medtronic 2 [id number] 249480 126114 645424 5 [id number] 20 Balloon [id number] ([id number]) EUPHORA 3.0 x Medtronic 1 [id number] 028701 839002 677256 5 [id number] 20 Balloon ([id number]) INTEGRITY RX Medtronic 1 [id number] 598693 144617 592620 5 [id number] 2.5 x 14 stent ([id number]) KIMBERLY RX 2.0 x Medtronic 1 [id number] 911209 6413044 641124 5 [id number] 8 stent ([id number]) EXOSEAL 6Fr Cardinal 1 EX600 926032 534101 230911 1 0 (EX600) Health Signature Audit [place] Stage Time Signature Unsigned Intra-Procedure 09/11/2019 Qing 4:55:33 PM Trinity RT(R) (CV) Intra-Procedure 09/11/2019 Curtis 4:56:28 PM Araceli FRANKLIN Intra-Procedure 09/11/2019 Parveen Nava 4:56:55 PM [id number] [place] [address]
[~2019-09-11 08:04] MED LIST changes: +ACETAMINOPHEN500 M1 PO; +CYCLOBENZAPRINE10 MG PO; +IBUPROFEN800 MG PO
[2019-09-11 08:46] LABS: CALC OSMOLALITY 283 mosm/kg (275-300); CALCIUM 8.8 mg/dL (8.5-10.1); CARBON DIOXIDE 27.2 mmol/L (21.0-32.0); CHLORIDE - SERUM 104 mmol/L (98-107); CREATININE - SERUM 1.1 mg/dL (0.6-1.3); GLUCOSE 133 mg/dL (74-106); POTASSIUM - SERUM 4.5 mmol/L (3.5-5.1); SODIUM 140 mmol/L (136-145); UREA NITROGEN 20 mg/dL (7-18); eGFR NON AFRICAN AMERICAN 51 mL/min (90-120)
[2019-09-11 08:59] LABS: APTT 29.1 SECONDS (22.8-39.4); INR 1.13 (0.85-1.17)
[2019-09-11 09:04] LABS: ALBUMIN 3.1 g/dL (3.4-5.0); ALKALINE PHOSPHATASE 114 U/L (46-116); ALT (SGPT) 31 U/L (10-68); BILIRUBIN - TOTAL 0.29 mg/dL (0.2-1.3); CKMB 0.3 U/L (0.0-3.6); CREATINE KINASE 40 UL (21-215); MAGNESIUM - SERUM 1.7 mg/dL (1.8-2.4); PRO BNP 244 pg/mL (0-450); PROTEIN - SERUM 7.6 g/dL (6.4-8.2); TROPONIN-I < 0.017 ng/mL (0.000-0.060)
[2019-09-11 09:23] LABS: BASOPHILS 0.2 % (0-2); HEMATOCRIT 40.5 % (36.0-48.0); HEMOGLOBIN 13.3 g/dL (12-16); IMMATURE GRANULOCYTES 0.2 % (0-5); LYMPHOCYTES 33.7 % (15-50); MCH 30.2 pg (26.0-34.0); MCHC 32.8 g/dL (31.0-37.0); MCV 91.8 fL (80.0-100.0); MEAN PLATELET VOLUME 10.6 fL (7.4-10.4); MONOCYTES 6.8 % (2-11); NEUTROPHILS 58.1 % (40-80); PLATELET COUNT 215 10x3/uL (130-400); RBC 4.41 10x6/uL (4.00-5.40); RDW 12.8 % (11.5-14.5); WBC 8.9 10x3/uL (4.8-10.8)
--- NOTE | 2019-09-11 17:38 | NUR ---
RECEIVED PATIENT TO ROOM VIA BED FROM PICKLE WATER PUMP OPERATOR AT APPROX 1715. PATIENT IS DROWSEY BUT EASILY AROUSED. RESP EVEN AND UNLABORED. PATIENT PLACED ON TELEMETRY. RIGHT FEMORAL WITH DRESSING CLEAN DRY AND INTACT. PERIPHERAL PULSES 2+, NO HEMATOMA FORMATION TO RIGHT GROIN. IV FLUIDS INFUSING AT 300ML/HR. PATIENT ABLE TO PROVIDE HISTORY. CALL LIGHT PLACED WITHIN REACH. LEMON KLUTI KAAH SODA PROVIDED. NO DISTRESS.
--- NOTE | 2019-09-11 17:40 | NUR ---
PATIENT WITH MALE VISITOR AT BEDSIDE, TOAN, AND PATIENT GAVE THIS COINING PRESS OPERATOR PERMISSION TO SPEAK TO HIM REGARDING HER CARE.
[2019-09-11 17:52] VITALS: BP 141/75; Ht 172.7 cm; Wt 86.8 kg
--- NOTE | 2019-09-11 17:59 | NUR ---
RESTING WITH EYES CLOSED, RESP EVEN AND UNLABORED. EASILY AROUSED. NO DISTRESS. CALL LIGHT WITHIN REACH. PERIPHERAL PULSES PATENT, NO S/S BLEEDING OR HEMATOMA FORMATION TO RIGHT GROIN. V/S STABLE. NO DISTRESS.
--- NOTE | 2019-09-11 19:35 | NUR ---
EVENING ROUNDS COMPLETED. VSS, AAOX3, PERIPHERAL PULSE CHECKED.NO S/S OF DISTRESS, SPOUSE AT BEDSIDE. NS @ 300. 02 2L. PT DENIES ANY FURTHER NEEDS AT THIS TIME. WILL CTM. CL WITHIN REACH, BED IN LOW, SR UP X2.
[2019-09-11 20:00] VITALS: BP 116/53
[2019-09-12] VITALS: BP 120/50
[2019-09-12 04:00] VITALS: BP 125/51
--- NOTE | 2019-09-12 07:10 | NUR ---
REPORT RECEIVED FRO TAKE DOWN INSPECTOR AND PATIENT CARE ASSUED. PATIENT LAYING IN BED AWAKE, ALERT AND ORIENTED X 4. PATIENT LAYING IN BED AWAKE, ALERT AND ORIENTED X 4. PATIENT DENIES ANY NEEDS OR PAIN. PATIENT IS STABLE AND VSS. PATIENT STATES READY TO GO HOME. WILL CONTINUE WITH PLAN OF CARE. SR UP X 2 BED IN LOW POSITION AND CALL LIGHT IN REACH.
[2019-09-12 08:45] VITALS: BP 133/58
--- NOTE | 2019-09-12 08:48 | NUR ---
UPON ADMIT, PATIENT HAS NOT HAD A FLU SHOT THIS YEAR. WHEN ASKED, SHE WOULD LIKE ONE AT DISCHARGE. ORDERED.
--- NOTE | 2019-09-12 09:33 | NUR ---
PATIENT IS STABLE AND VSS. PATIENT DENIES ANY NEEDS OR PAIN ORDERS FOR DC RECEIVED. WRITTEN AND VERBAL INSTRUCTIONS GIVEN. PATIENT VERBALIZED UNDERSTANDING AND SIGNED WRIITEN INSTRUCTIONS. IV TO LT AC DCD WITHOUT DIFFICULTY WITH ENTIRE CATHETER INTACT. PRESSURE DRSG APPLIED. PATIENT IS CTC HOME FOR SELF CARE. PATIENT TO FRONT DOOR VIA WC TO PRIVATE VEHICLE DRIVEN BY FRIEND.
--- NOTE | 2019-09-12 10:41 | OP ---
PATIENT NAME: CARLOS MANUEL GUTIERRES MEDICAL RECORD: [id number] :43 LOCATION:D.OPS ADMISSION DATE: SURGEON: JENN MCGRAW MD DATE OF OPERATION: 09/11/2019 PROCEDURES: 1. PTCA stent LAD. 2. Left heart catheterization. 3. Selective coronary angiography. 4. Vein graft angiography. 5. KIMBROUGH angiography. INDICATION: Unstable angina and coronary artery disease. PROCEDURE IN DETAIL: After informed consent was obtained and after a detailed description of risks, benefits as well as alternative therapies, the patient elected to proceed with angiogram and angioplasty. The right femoral area was prepped and draped in normal sterile fashion. Right femoral artery was cannulated via modified Seldinger technique with placement of 6-Mozambican sheath. All catheters exchanged through this sheath. FINDINGS: The left ventriculogram was performed in standard 30-degree PARSONS view, reveals good cardiac wall motion, ejection fraction estimated 60%. SELECTIVE CORONARY ANGIOGRAPHY: 1. Left main is with no significant angiographic disease. 2. Left anterior descending has previously placed stents, after this left anterior descending has 90% stenosis and 95% stenosis. The KIMBROUGH ties in between these 2 stenosis, hence the 95% stenosis. This flow limiting for the distal LAD. 3. The left circumflex is totally occluded. 4. Vein graft to circumflex is widely patent. Distal circumflex is diffusely diseased, but widely patent. 5. Right coronary is totally occluded. 6. Vein graft to the right coronary is widely patent. Distal right coronary is widely patent. PTCA STENT OF THE LAD: A 95% lesion was addressed with a 2.5 x 15 mm Integrity. Result was 0% residual stenosis. OVERALL IMPRESSION: Successful PTCA stent of the LAD after the KIMBROUGH graft going from 95% initial stenosis to 0% residual. TRANSINT:[id number] Voice Confirmation ID: [id number] DOCUMENT ID: [id number] JENN MCGRAW MD at 1041 CC: [id number] DICTATION DATE: 09/11/191651 DIGITAL STRATEGY DIRECTOR: 09/12/19 0214 DEP CLI 09/12/19 [place] [address]
--- NOTE | 2019-09-12 10:41 | HP ---
PATIENT: CARLOS MANUEL GUTIERRES MEDICAL RECORD: [id number] ACCOUNT: [id number] LOCATION:[facility] : 43 ADMISSION DATE: 09/11/19 PCP: ALEX ZAPATA MD HISTORY AND PHYSICAL EXAMINATION ADMITTING DIAGNOSES: 1. Unstable angina. 2. Coronary artery disease. 3. Previous percutaneous transluminal coronary angioplasty stent. 4. Previous bypass surgery. 5. Hypertension. 6. Hyperlipidemia. 7. Family history of coronary artery disease. HISTORY OF PRESENT ILLNESS: Mrs. Gutierres presents with chest pain that radiates to her back. It actually starts in her anterior mid chest, radiating to the right side of her back. This is, however, like her previous angina when she has had myocardial infarction and had hemodynamically significant stenosis prior to stenting. Her pain came on this morning at 5:00 a.m. She has received sublingual nitro, it has helped, but the pain is still there. She has received fentanyl as well, but the pain is still there. It is worsening. She has noted for the past week that she has been short of breath and dyspneic, but this is the first day that she has had the chest pain. Bypass surgery has been approximately 12 years ago. She does have hypertension, hyperlipidemia and family history of coronary artery disease as well as the known coronary disease with bypass surgery. PHYSICAL EXAMINATION: CONSTITUTIONAL/GENERAL APPEARANCE: Well nourished, well developed, appears stated age. EYES: Lids and conjunctivae noninjected. No discharge. No pallor. ENT: Lips within normal limit. No cyanosis. No pallor. NECK: Carotid arteries, bilateral normal upstroke. No bruits. No thrills. No jugular venous pressure or distention. CERVICAL LYMPH NODES: Nontender. Nonenlarged. THYROID: Not enlarged. No nodules. CARDIOVASCULAR: Precordial exam, nondisplaced. No heaves or pericardial thrills. Rate and rhythm, regular. Heart sounds, normal S1, normal S2. No S3, no gallop, no rub. Systolic murmur, not heard. Diastolic murmur, not heard. RESPIRATORY: Respiratory effort, unlabored. Normal curvature. No thoracic deformity. No chest wall tenderness. Percussion, resonant. Auscultation, clear. No wheezes, no rales, no rhonchi. ABDOMEN: Soft, nondistended, nontender. No abdominal pain, no vomiting and normal appetite. MUSCULOSKELETAL: No joint tenderness, normal gait, normal tone. SKIN: Warm and dry. OVERALL IMPRESSION: Chest pain, class IV angina just like that of her previous angina with continued pain despite medical management. We will proceed with coronary angiography. Further care depends upon the findings of the angiography. TRANSINT:[id number] Voice Confirmation ID: [id number] DOCUMENT ID: [id number] HISTORY AND PHYSICAL [id number] CARLOS MANUEL GUTIERRES JEFFREY MD at 1041 CC: [id number] DICTATION DATE: 09/11/19 1104 BULK FILLER: 09/11/19 1114 DEP CLI 09/12/19 [facility] [address] [place] [address]
--- NOTE | 2019-09-24 17:02 | OP ---
PATIENT NAME: CARLOS MANUEL GUTIERRES MEDICAL RECORD: [id number] :43 LOCATION:[facility] ADMISSION DATE: SURGEON: JENN MCGRAW MD DATE OF OPERATION: 09/12/2019 ADDENDUM She will follow up with [facility]. At that time, need for a statin will be addressed. TRANSINT:[id number] Voice Confirmation ID: [id number] DOCUMENT ID: [id number] JENN MCGRAW MD at 1702 CC: [id number] DICTATION DATE: 09/24/19 1156 PILLOWCASE FOLDER: 09/24/19 1540 DEP CLI 09/12/19 [place] [id number] [place] [id number]
== END 2019-09-12 09:39 | disposition home or self-care (01) ==
LOC: D.ER 08:04 → D.OPS 08:04 → D.M2 08:04 → EDSTATUS 10:15 → D.M2 15:27 → D.OPS 09-12 09:39
PROVIDERS: Emergency Medicine; ATTEND Internal Medicine Interventional Cardiology
DX: I25.110 Atherosclerotic heart disease of native coronary artery with unstable angina pectoris (principal); I10 Essential (primary) hypertension; E78.5 Hyperlipidemia, unspecified

== ENCOUNTER → 2020-03-21 10:00 | Outpatient (CLI) | payer MEDICARE, BC ==
[2019-09-11 17:52] VITALS: BMI 29.1
== END | disposition home or self-care (01) ==
LOC: D.HCCARDIO 09:30
PROVIDERS: ATTEND Internal Medicine Cardiovascular Disease
DX: I25.10 Atherosclerotic heart disease of native coronary artery without angina pectoris (principal)

== ENCOUNTER 2020-04-02 07:18 | Outpatient (CLI) | payer MEDICARE, BC ==
[~2020-04-02] VITALS: Ht 172.7 cm; Wt 90.5 kg
--- NOTE | ~2020-04-02 | HEMODYNAMI ---
PATIENT:CARLOS MANUEL GUTIERRES MEDICAL RECORD: [id number] : 43 LOCATION:D.CAT ADMISSION DATE: 04/02/20 Generatedon:04/02/202011:09 Patient name: CARLOS MANUEL GUTIERRES Patient #: [id number] SSN: [id number] : 1945 Date of study: 04/02/2020 Page: Of Hemodynamic Procedure Report Patient Data Patient Demographics Procedure consent was obtained First Name: CARLOS MANUEL Gender: Female Last Name: BHAVIK : 1945 [facility] Initial: D Age: 74 year(s) Patient #: [id number] Race: SSN: [id number] Additional ID: [id number] Contact details [address]: [address] [place] [address] State: [place] City: [place] Zip code: [address] Past Medical History Performed procedures and imaging results Date Procedure Procedure Results Comments 03/21/2020 Stress testing Positive->Intermediate with SPECT MPI risk History of disease Date Diagnosis Comments CAD Allergies Allergen Reaction Date Comments Reported Other allergy 04/19/2016 Codeine Codeine 04/18/2018 Codeine 09/05/2018 Other allergy 02/19/2019 Codeine Codeine 04/30/2019 Codeine 09/11/2019 Other allergy 04/02/2020 CODEINE Admission Admission Data Admission Date: 04/02/2020 Admission Time: 7:18 Arrival Date: 04/02/2020 Arrival Time: 0:00 Admit Source: Other Insurance Payor: Medicare [facility] #: [id number] Height (in.): 68 BSA: 2.04 (m2) Height (cm.): 172.72 BMI: 30.35 (kg/m2) Weight (lbs.): 199.61 Weight (kg.): 90.54 Lab Results Lab Result Date: 04/02/2020 Lab Result Time: 0:00 Biochemistry Name Units Result Min Max BUN mg/dl 17 --(---*)-- 7 18 Creatinine mg/dl 1.21 --(---*)-- 0.6 1.3 eGFR ml/min 46 *-(----)-- 90 120 NONAFRICAN CBC Name Units Result Min Max Hematocrit % 39.8 -*(----)-- 42 54 Hemoglobin g/dl 13 -*(----)-- 13.5 17.5 Procedure Procedure Types Cath Procedure Diagnostic Procedure [facility] w/Coronaries Sedation Charges Moderate Sedation up to 30 minutes PCI Procedure Coronary Stent Coronary Stent Initial Procedure Description Procedure Date Procedure Date: 04/02/2020 Procedure Start Time: 10:28 Procedure End Time: 11:05 Procedure Staff Name Function Jefry Kolb MD Performing Physician Kennedy Remy RN Nurse Mey Guardado RT Monitor Prachi Wilkes RT Scrub Procedure Data Cath Procedure Fluoroscopy Diagnostic fluoroscopy Total fluoroscopy Time: time: 12.1 min 12.1 min Diagnostic fluoroscopy Total fluoroscopy dose: dose: 1939 mGy 1939 mGy Contrast Material Contrast Material Type Amount (ml) Isovue 370 142 Entry Location Entry Primary Successful Side Size Upsize Upsize Entry Closure Succes sful Closure Location (Fr) 1 (Fr) 2 (Fr) Remarks Device Remarks Femoral Right 5 Fr 6 Fr Exoseal artery Short Estimated blood loss: 10 ml Diagnostic catheters Device Type Used For End Catheter Placement MULTIPACK JL 4.0 5Fr Procedure catheter MULTIPACK 3DRC 5Fr Procedure catheter MULTIPACK Pigtail 5 Fr Procedure catheter Procedure Complications No complications Procedure Medications Medication Administration Route Dosage Oxygen etCO2 Nasal cannula 2 l/min Lidocaine 2% added to field 20 Heparin Flush Bag added to field 2 bags (1000units/500ml NS) 0.9% NaCl I.V. 100 ml/hr Versed I.V. 2 mg Fentanyl I.V. 50 mcg Versed I.V. 1 mg Fentanyl I.V. 50 mcg Versed I.V. 1 mg Heparin Bolus I.V. 4000 units Integrilin (Bolus I.V. 8.5 ml 2mg/ml) Plavix P.O. 600 mg Hemodynamics Rest BSA: 2.04 (m2) HGB: 13 (g/dl) O2 Consumption: Estimated: 189.72 (ml/min) O2 Cons umption indexed: Estimated:93 (ml/min/m) Heart Rate: 75 (bpm) Pressure Samples Time Site Value (mmHg) Purpose Heart Use Rate(bpm) 10:41 LV 153/5,17 Snapshot 69 10:41 AO 146/87(116) Pullback 71 Gradients Valve Time Site Site 2 Mean SEP/DFP Peak To Heart Use 1 (mmHg) (sec/min) Peak Rate (mmHg) (bpm) Aortic 10:41 LV AO 71 146/87(116) Snapshots Pre Cath Intra NCS Post Cath Vital Signs Time Heart Resp SPO2 etCO2 NIBP (mmHg) Rhythm Pain Sedation Rate (ipm) (%) (mmHg) Status Level (bpm) 10:08:32 69 12 94 9 145/81(132) NSR 0 (11) 10(A) , No pain 10:12:46 70 15 99 43.5 150/80(126) NSR 0 (11) 10(A) , No pain 10:17:04 69 16 99 42.7 149/78(113) NSR 0 (11) 10(A) , No pain 10:21:19 71 15 98 30.7 140/73(124) NSR 0 (11) 10(A) , No pain 10:25:30 67 15 97 37.5 135/83(124) NSR 0 (11) 9(A) , No pain 10:29:42 69 16 99 37.5 150/76(111) NSR 0 (11) 9(A) , No pain 10:34:00 67 14 98 43.5 141/73(116) NSR 0 (11) 9(A) , No pain 10:38:17 68 17 98 43.5 130/71(114) NSR 0 (11) 9(A) , No pain 10:42:28 71 13 98 39.7 131/73(105) NSR 0 (11) 9(A) , No pain 10:46:36 71 16 99 39 132/72(98) NSR 0 (11) 9(A) , No pain 10:50:50 71 15 98 41.2 127/73(102) NSR 0 (11) 9(A) , No pain 10:55:04 67 18 98 38.2 133/63(96) NSR 0 (11) 9(A) , No pain 10:59:16 68 13 98 41.2 145/76(121) NSR 0 (11) 9(A) , No pain 11:03:32 72 29 99 42 143/75(117) NSR 0 (11) 10(A) , No pain Medications Time Medication Route Dose Verified Delivered Reason Notes Effectiveness by by 10:07:35 Oxygen etCO2 2 Jefry Benavides used for Nasal l/min St Armando Remy RN procedure cannula 10:07:41 Lidocaine 2% added 20ml Jefry Capps for local to vial [facility] anesthetic field MD PRIETO 10:07:47 Heparin Flush added 2 Jefry Capps used for Bag to bags [facility] procedure (1000units/500ml field MD PRIETO NS) 10:07:56 0.9% NaCl I.V. 100 Jefry Benavides Per physician ml/hr St Armando Remy RN, MD 10:20:18 Versed I.V. 2 mg Jefry Benavides for sedation St Armando Remy RN, MD 10:20:24 Fentanyl I.V. 50 Jefry Benavides for sedation mcg St Armando Remy RN, MD 10:25:44 Versed I.V. 1 mg Jefry Benavides for sedation St Armando Remy RN, MD 10:25:47 Fentanyl I.V. 50 Jefry Benavides for sedation mcg St Armando Remy RN, MD 10:31:06 Versed I.V. 1 mg Jefry Benavides for sedation St Armando Remy RN, MD 10:43:06 Heparin Bolus I.V. 4000 Jefry Benavides for verif ied units St Armando Remy RN anticoagulation with dr MD brown 10:44:44 Integrilin I.V. 8.5 Jefry Benavides for Waste d (Bolus 2mg/ml) ml St Armando Remy RN antiplatelet 1.5 ml MD therapy of vial 11:04:57 Plavix P.O. 600 Jefry Benavides for mg St Armando Remy RN antiplatelet therapy Procedure Log Time Note 9:42:06 Informed consent obtained and on chart 9:46:28 Diagnostic Cath Status : Elective 9:51:32 Kennedy Remy RN sent for patient. Start room use. 9:51:57 Arrival Date: 04/02/2020 12:00:00 AM 9:52:08 Insurance Payor : Medicare 9:52:28 Admit Source: Other 9:53:01 Patient Height : 68 inches 9:53:06 Patient Weight : 199.61 lbs 9:53:31 Patient allergic to Other allergyCODEINE 9:57:29 Procedure Status Elective Heart Cath (OP). 9:58:06 Time tracking: Regular hours (M-F 7:00 - 5:00) 9:58:11 Plan of Care:Hemodynamics will remain stable., Cardiac rhythm will remain stable., Comfort level will be maintained., Respiratory function will remain adequate., Patient/ family verbilizes understanding of procedure., Procedure tolerated without complication., Recovers from procedure without complications.. 9:58:15 Patient received from Pre/Post Procedure Room to CCL 2 Alert and oriented. Tansferred to table in Supine position. 9:58:17 Warm blankets applied, and gallito hugger turned on for patient comfort. 9:58:17 Correct patient and procedure confirmed by team. 9:58:18 ECG and BP/O2 sat monitors applied to patient. 9:58:27 H&P Date Dictated: 03/18/2020 Within 30 days and on chart.. 9:58:28 Pre-procedure instructions explained to patient. 9:58:28 Pre-op teaching completed and patient verbalized understanding. 9:58:30 Family in waiting room. 9:58:32 Patient NPO since Midnight. 9:58:37 Is the patient allergic to Iodine/contrast media? No. 10:07:24 Vital chart was started 10:07:35 Oxygen 2 l/min etCO2 Nasal cannula was administered by Kennedy Remy RN; used for procedure; Verbal order read back and verified. 10:07:41 Lidocaine 2% 20ml vial added to field was administered by Jefry Kolb MD; for local anesthetic; Verbal order read back and verified. 10:07:47 Heparin Flush Bag (1000units/500ml NS) 2 bags added to field was administered by Jefry Kolb MD; used for procedure; Verbal order read back and verified. 10:07:56 0.9% NaCl 100 ml/hr I.V. was administered by Kennedy Remy RN; Per physician; Verbal order read back and verified. 10:12:28 Was the patient premedicated? No 10:12:35 Is patient on blood thinner?No 10:12:37 Patient diabetic? No. 10:12:39 If diabetic: On Metformin? N/A 10:12:41 Patient not . Patient is over age 55. 10:12:42 ----Pre-sedation anethsthesia assessment.---- 10:12:46 Previous problem with sedation/anesthesia? No ? 10:12:47 Snore? Yes 10:12:50 Sleep apnea? No 10:12:51 Deviated septum? No 10:12:52 Opens mouth fully? Yes 10:12:54 Sticks out tongue? Yes 10:12:56 Airway obstruction? No ? 10:12:58 Dentures? No ? 10:13:03 Pre procedure: right dorsailis pedis pulse 2+ Normal; easily identifiable; not easily obliterated 10:13:06 Patient pain scale 0/10 ?. 10:13:12 IV patent on arrival in left antecubital with 0.9% NaCl at [facility]. 10:13:45 Lab Result : Creatinine 1.21 mg/dl 10:13:45 Lab Result : BUN 17 mg/dl 10:13:45 Lab Result : eGFR NONAFRICAN 46 ml/min 10:13:45 Lab Result : Hemoglobin 13 g/dl 10:13:46 Lab Result : Hematocrit 39.8 % 10:13:49 Lab results completed and on chart. 10:14:09 Stress Test: yes; abnormal ANTERIOR AND INFERIOR 10:14:15 Right groin area was prepped with chlora-prep and draped in sterile fashion 10:14:17 Alarms reviewed by R. N. 10:14:17 Sharps counted by scrub and verified by R.N. 10:14:23 Baseline sample Acquired. 10:14:24 Full Disclosure recording started 10:14:28 Rhythm: sinus rhythm 10:14:31 Use device set Femoral Dx 10:14:33 ACIST Syringe (55046) opened to sterile field. 10:14:33 Bag Decanter (2002S) opened to sterile field. 10:14:34 Medline Cath Pack ([id number]) opened to sterile field. 10:14:35 ACIST Hand Control (19875) opened to sterile field. 10:14:35 ACIST Manifold (34294) opened to sterile field. 10:14:36 DIAGNOSTIC Multipack 5Fr catheter set ([id number]) opened to sterile field. 10:14:37 SHEATH 5FR [place] (VWV763) opened to sterile field. 10:14:38 EMERALD Guide Wire (345-880) opened to sterile field. 10:19:04 --------ALL STOP TIME OUT------ 10:19:05 Final Timeout: patient, procedure, and site verified with staff and physician. All members of the team are in agreement. 10:19:06 Right groin site verified by team. 10:19:10 Fire Safety Assessment: A--An alcohol-based skin anteseptic being used preoperatively., C--Open oxygen or nitrous oxide is being used., D--An ESU, laser, or fiber-optic light is being used. 10:19:13 Physical assessment completed. ASA score P 2 - A patient with mild systemic disease as per Jefry Kolb MD. 10:19:17 3a) 45-59 Moderately reduced kidney function. 10:19:20 Maximum allowable contrast dose (3.7 X eGFR X 0.75)128 ml. 10:19:24 Sedation plan: IV Moderate Sedation Medication:Versed, Fentanyl 10:20:18 Versed 2 mg I.V. was administered by Kennedy Remy RN; for sedation; Verbal order read back and verified. 10:20:24 Fentanyl 50 mcg I.V. was administered by Kennedy Remy RN; for sedation; Verbal order read back and verified. 10:25:44 Versed 1 mg I.V. was administered by Kennedy Remy RN; for sedation; Verbal order read back and verified. 10:25:47 Fentanyl 50 mcg I.V. was administered by Kennedy Remy RN; for sedation; Verbal order read back and verified. 10:28:55 Procedure started. 10:28:59 Local anesthetic to right femoral artery with Lidocaine 2% by Jefry Kolb MD.INITIAL ACCESS ONLY 10:30:16 A 5 Fr sheath was inserted into the Right Femoral artery 10:30:22 A MULTIPACK JL 4.0 5Fr catheter was advanced over the wire and used for Procedure. 10:30:27 Injector settings: Ml/sec: 3, Volume: 6, 10:30:28 LCA angiography performed. 10:31:06 Versed 1 mg I.V. was administered by Kennedy Remy RN; for sedation; Verbal order read back and verified. 10:31:22 Catheter removed. 10:31:28 A MULTIPACK 3DRC 5Fr catheter was advanced over the wire and used for Procedure. 10:31:32 Injector settings: Ml/sec: 3, Volume: 6, 10:32:12 RCA angiography performed. 10:33:05 SVG to Circ angiography performed. 10:33:38 SVG to RCA angiography performed. 10:34:09 Injector settings: Ml/sec: 3, Volume: 6, 10:35:10 GLIDE WIRE Super Stiff Angled 260cm ([id number]) opened to sterile field. 10:38:57 KIMBROUGH to LAD angiography performed. 10:38:59 Injector settings: Ml/sec: 4, Volume: 8, 10:40:24 Catheter removed. 10:40:30 A MULTIPACK Pigtail 5 Fr catheter was advanced over the wire and used for Procedure. 10:41:09 Injector settings: Ml/sec: 5, Volume: 15, 10:41:11 LV gram done using PARSONS 10:41:32 LV hemodynamics recorded. 10:41:41 EF : 55 % 10:41:59 Catheter removed. 10:41:59 Proceeding to intervention. 10:42:05 Use device set LISBETH PCI 10:42:08 INFLATOR Merit BasixCompak (PQ0648) opened to sterile field. 10:42:09 SHEATH 6FR [place] (GFY801) opened to sterile field. 10:42:12 WHISPER 300cm guide wire ([id number]) opened to sterile field. 10:42:50 GUIDE 6FR XBLAD 3.5 catheter ([id number]) opened to sterile field. 10:43:06 Heparin Bolus 4000 units I.V. was administered by Kennedy Remy RN; for anticoagulation; verified with dr brown Verbal order read back and verified. 10:43:11 Sheath upsized to a 6 Fr Short. 10:43:55 Pre PCI Site: [place] mLAD has 90% stenosis. 10:44:01 6 Fr XBLAD 3.5 guide catheter was inserted over the wire 10:44:23 GLIDE 260 wire advanced. 10:44:44 Integrilin (Bolus 2mg/ml) 8.5 ml I.V. was administered by Kennedy Remy RN; for antiplatelet therapy; Wasted 1.5 ml of vial Verbal order read back and verified. 10:48:30 WHISPER 300 wire advanced. 10:48:31 Wire advanced across lesion. 10:51:17 Inflate balloon Inflation number: 1 A EMERGE OTW 3.0 x 20 balloon ([id number]) was prepped and advanced across the Prox LAD 90, then inflated to 10 DARRYL for 0:30 (min:sec) . 10:51:35 Inflation number: 2 The EMERGE OTW 3.0 x 20 balloon ([id number]) was reinflated across the Prox LAD , to 12 DARRYL for 0:00 (min:sec) . 10:52:29 Inflation number: 3 The EMERGE OTW 3.0 x 20 balloon ([id number]) was reinflated across the Prox LAD , to 12 DARRYL for 0:07 (min:sec) . 10:53:03 Inflation number: 4 The EMERGE OTW 3.0 x 20 balloon ([id number]) was reinflated across the Prox LAD , to 8 DARRYL for 0:00 (min:sec) . 10:53:57 Balloon removed over the wire. 10:56:58 Place stent Inflation Number: 5 A INTEGRITY RX 3.0 x 15 stent ([id number]) was prepped and advanced across the Prox LAD . The stent was deployed at 14 DARRYL for 0:00 (min:sec) . 10:57:32 Inflation number: 6 The stent balloon was then re-inflated across the Prox LAD to 14 DARRYL for 0:00 (min:sec) . 10:58:08 Stent catheter was removed intact over wire. 10:58:08 Wire removed. 10:58:09 Guide catheter removed. 10:58:12 EXOSEAL 6Fr (EX600) opened to sterile field. 10:58:25 Sheath removed intact; hemostasis achieved with Exoseal to the Right Femoral artery. 10:58:31 Fluoroscopy time 12.10 minutes. 10:58:35 Flurop Dose total: 1939 10:58:35 Fluoroscopy dose: 1939 mGy 10:58:40 Dose Area Product 80645 mGy/cm. 10:59:14 Contrast amount:Isovue 370 142ml. 10:59:17 Procedure ended.(Physican Out) 10:59:19 Maximum allowable dose exceeded? Yes. 10:59:20 Sharps counted by scrub and verified by R.N. 11:00:05 Post-op/insertion site Right Femoral artery dressed using a 4 x 4 and Tegaderm. 11:00:10 Post right femoral artery:stable, soft, clean and dry 11:00:11 Post Procedure Pulses reassessed and unchanged 11:00:14 Post procedure: right dorsailis pedis pulse 2+ Normal; easily identifiable; not easily obliterated. 11:00:17 Post-procedure physical assessment completed. ASA score P 2 - A patient with mild systemic disease as per Jefry Kolb MD. 11:00:21 Post procedure rhythm: unchanged. 11:00:25 Estimated blood loss: 10 ml 11:00:26 Post procedure instruction explained to patient.Patient verbalizes understanding. 11:00:27 Patient needs reinforcement of post procedure teaching. 11:01:07 Procedure type changed to Cath procedure, Diagnostic procedure, LHC, [facility] w/Coronaries, Sedation Charges, Moderate Sedation up to 30 minutes, PCI procedure, Coronary Stent, Coronary Stent Initial 11:02:36 FEMSTOP Gold ([id number]) opened to sterile field. 11:03:11 Femstop placed over the right femoral artery at 150 mmHg. Hemostasis achieved. 11:03:26 Procedure and supply charges have been captured, reviewed, submitted and are correct. 11:03:31 Procedure Complication : No complications 11:03:33 Vital chart was stopped 11:03:36 [facility] Findings: MVD- PCI performed (see procedure note) 11:03:40 Operative report dictated upon procedure completion. 11:03:40 See physician's report for complete and final results. 11:03:42 Report given to Pre/Post Procedure Room. 11:03:45 Patient transfered to Pre/Post Procedure Room with Stretcher. 11:04:57 Plavix 600 mg P.O. was administered by Kennedy Remy RN; for antiplatelet therapy; Verbal order read back and verified. 11:05:16 ACT drawn and resulted at 195 seconds. (normal therapeutic range 180-240 seconds). :05:26 Procedure ended. ::26 Full Disclosure recording stopped 11:07:30 End room use (Document Last) 11:07:43 End room use (Document Last) 11:08:35 ACC-PCI Only Patient was given prescriptions, or instructed by Jefry Kolb MD to start/continue the following medications upon discharge: Plavix Intervention Summary Intervention Notes Time ActionType Lesion and Equipment Action# Pressure Duration Attributes Used 10:51:17 Inflate Prox LAD EMERGE OTW 1 10 00:30 balloon 3.0 x 20 balloon ([id number]) 10:51:35 Reinflate Prox LAD EMERGE OTW 2 12 00:00 balloon 3.0 x 20 balloon ([id number]) 10:52:29 Reinflate Prox LAD EMERGE OTW 3 12 00:07 balloon 3.0 x 20 balloon ([id number]) 10:53:03 Reinflate Prox LAD EMERGE OTW 4 8 00:00 balloon 3.0 x 20 balloon ([id number]) 10:56:58 Place stent Prox LAD INTEGRITY RX 5 14 00:00 3.0 x 15 stent ([id number]) 10:57:32 Reinflate Prox LAD INTEGRITY RX 6 14 00:00 stent 3.0 x 15 balloon stent ([id number]) Device Usage Item Name Manufacture Quantity Catalog Number Hospital Part Current Mini mal Lot# / Charge Number Stock Stock Serial# Code ACIST Acist 1 14851 490808 129933 303878 20 Syringe Medical (37450) Systems Inc Bag Decanter Microtek 1 2001S 770480 68838 127845 5 (2001S) Medical Inc. Medline Cath Medline 1 [id number] 420335 20258 742806 5 Pack ([id number]) ACIST Hand Acist 1 90437 862907 103450 375811 5 Control Medical (79375) Systems Inc ACIST Acist 1 81057 114117 342516 604363 5 Manifold Medical (69120) Systems Inc DIAGNOSTIC Cardinal 1 AJ2575 536827 99352 691765 30 Multipack Health 5Fr catheter set (VR9745) SHEATH 5FR Terumo 1 SKV982 397377 630029 925514 5 [place] (YXX814) EMERALD Cardinal 1 502-455 294087 621959 890043 5 Guide Wire Health (502-455) MULTIPACK JL Cardinal 1 019818 5 4.0 5Fr Health catheter MULTIPACK Cardinal 1 757141 5 3DRC 5Fr Health catheter GLIDE WIRE Terumo 1 DM0918 880309 110999 328335 5 Super Stiff Angled 260cm (QC4394) MULTIPACK Cardinal 1 070110 5 Pigtail 5 Fr Health catheter INFLATOR [facility] 1 UH3813 973258 958606 940599 15 [facility] Medical BasixCompak (UV1670) SHEATH 6FR Terumo 1 BDQ278 270850 550120 823519 40 [place] (BQO333) WHISPER Hoang 1 [id number] 881723 710008 118665 5 300cm guide Vascular wire (9690651BA) GUIDE 6FR Cardinal 1 13284280 476840 030976 374477 10 XBLAD 3.5 Health catheter (92807893) EMERGE OTW [place] 1 [id number] 400584 978728 749187 5 [id number] 3.0 x 20 Scientific balloon ([id number]) INTEGRITY RX Medtronic 1 [id number] 953058 990290 660070 5 [id number] 3.0 x 15 stent ([id number]) EXOSEAL 6Fr Cardinal 1 EX600 750503 711389 382827 10 (EX600) Health FEMSTOP Gold [facility] 1 I19886 525035 144202 653183 5 ([id number]) Signature Audit [place] Stage Time Signature Unsigned Intra-Procedure 04/02/2020 Mey Guardado 11:07:43 AM RT(R) Intra-Procedure 04/02/2020 Kennedy Remy RN 11:08:55 AM Intra-Procedure 04/02/2020 Jefry Herndon 11:09:14 AM Armando PRIETO Signatures Performing Physician : Signature : Jefry Kolb MD Date : Time : Nurse : Kenneyd Remy RN Signature : Date : Time : Monitor : Mey Guardado Signature : RT Date : Time : [facility] [address] [place] [address]
[2020-04-02 08:27] VITALS: BP 142/75; Ht 172.7 cm; Wt 90.5 kg
[2020-04-02 08:33] LABS: BASOPHILS 0.2 % (0-2); EOSINOPHILS 1.7 % (0-7); HEMATOCRIT 39.8 % (36.0-48.0); IMMATURE GRANULOCYTES 0.4 % (0-5); LYMPHOCYTES 31.3 % (15-50); MCH 29.8 pg (26.0-34.0); MCHC 32.7 g/dL (31.0-37.0); MCV 91.3 fL (80.0-100.0); MEAN PLATELET VOLUME 10.2 fL (7.4-10.4); NEUTROPHILS 58.4 % (40-80); PLATELET COUNT 194 10x3/uL (130-400); RBC 4.36 10x6/uL (4.00-5.40); RDW 13.2 % (11.5-14.5); WBC 8.9 10x3/uL (4.8-10.8)
[2020-04-02 08:46] LABS: ALT (SGPT) 38 U/L (10-68); CALC OSMOLALITY 276 mosm/kg (275-300); CALCIUM 8.6 mg/dL (8.5-10.1); CARBON DIOXIDE 25.8 mmol/L (21.0-32.0); CHLORIDE - SERUM 102 mmol/L (98-107); CHOL - HDL RATIO 9.1 ratio (2.3-4.1); CHOLESTEROL, TOTAL 182 mg/dL (0-200); CREATININE - SERUM 1.2 mg/dL (0.6-1.3); GLUCOSE 153 mg/dL (74-106); HDL CHOLESTEROL 20 mg/dL (32-96); POTASSIUM - SERUM 4.1 mmol/L (3.5-5.1); SODIUM 136 mmol/L (136-145); TRIGLYCERIDE 719 mg/dL (30-200); UREA NITROGEN 17 mg/dL (7-18); eGFR NON AFRICAN AMERICAN 46 mL/min (90-120)
--- NOTE | 2020-04-02 11:25 | NUR ---
PT REC'D TO ROOM 4 VIA STRETCHER FROM [employer] CONTROLS ENGINEER. MONITORS ESTAB. PT DROWSY. SEE HYDROELECTRIC MACHINERY MECHANIC. ALARMS ON AND C/L IN REACH.
--- NOTE | 2020-04-02 12:15 | NUR ---
PT C/O PAIN R UPPER LEG. NO CHANGE IN HEMATOMA - OLIVIA FROM [facility] DEPOSIT CLERK HERE - NOTIFIED DR. BOB - NEW ORDERS REC'D.
--- NOTE | 2020-04-02 12:30 | NUR ---
MORPHINE GIVEN SIVP PER MD ORDER - FEM STOP REMOVED BY OLIVIA AND PRESSURE APPLIED PER MD ORDERS. 1235 - R LEG HEMATOMA SOFTENED, NO S/S BLEEDING FROM EXOSEAL SITE. PT REPORTS RELIEF OF DISCOMFORT. ALARMS ON AND C/L IN REACH.
--- NOTE | 2020-04-02 12:45 | NUR ---
PT C/O L ARM PAIN "RATIATING TO MY FINGERS" RATED 10/10 -NO CHANGES NOTED ON CM - DR. BOB NOTIFIED.
--- NOTE | 2020-04-02 12:55 | NUR ---
R GROIN SITE AND UPPER LEG SITE UNCHANGED, NO S/S BLEEDING. PT ENCOURAGED TO DO ROM WITH L ARM, PT REPORTED "ITS HELPING", NO SIGN OF BRUISING OR TRAUMA. ARM ELEVATED ON PILLOW.
--- NOTE | 2020-04-02 13:00 | NUR ---
EKG DONE, NOTIFIED.
--- NOTE | 2020-04-02 13:12 | NUR ---
PT REPORTS "FEELING BETTER" - B/P 120/69, HR 64. R GROIN SITE UNCHANGED, PEDAL PULSES PALP.
--- NOTE | 2020-04-02 13:20 | NUR ---
R GROIN/UPPER LEG SITES UNCHANGED. VSS, PT RESTING QUIETLY. ALARMS ON AND C/L IN REACH.
--- NOTE | 2020-04-02 14:08 | NUR ---
R GROIN SITE C/D/I, HEMATOMA NOTED, UNCHANGED, SOFT - TENDER. PEDAL PULSES PALP. HOB ELEVATED. SANDWICH TRAY PROVIDED. FRIEND AT BS. VSS - B/P 133/70, HR 86. C/L IN REACH.
--- NOTE | 2020-04-02 14:35 | NUR ---
PT ATE ALL OF SANDWICH. VSS. R GROIN SITE C/D/I, HEMATOMA UNCHANGED. PULSES PALP. PT REPORTS L ARM "MUCH BETTER".
--- NOTE | 2020-04-02 15:05 | NUR ---
DR. BOB NOTIFIED OF PT C/O PAIN AT R LEG SITE - NEW ORDER REC'D.
--- NOTE | 2020-04-02 15:17 | NUR ---
PIV D/C'D INTACT. PT ASSISTED TO GET DRESSED - WENT TO BR INDEPENDENTLY. GAIT STEADY. D/C TEACHING DONE, INSTRUCTIONS REVIEWED.
--- NOTE | 2020-04-02 15:24 | NUR ---
ADMIN PO ROHITHCO PER ORDER - WILL D/C HOME PLAN PER OK FROM DR. BOB.
--- NOTE | 2020-04-02 15:45 | NUR ---
PT D/C'D VIA WC TO PRIVATE VEHICLE - PT VERBALIZES ALL D/C INSTRUCTIONS. PT HAS ALL PAPER WORK AND BELONGINGS.
--- NOTE | 2020-04-03 08:09 | OP ---
PATIENT NAME: CARLOS MANUEL GUTIERRES MEDICAL RECORD: [id number] :43 LOCATION:D.CAT ADMISSION DATE: SURGEON: WALDO BOB MD DATE OF OPERATION: 04/02/2020 PROCEDURE: Left heart catheterization, selective coronary angiography, right femoral artery approach. CATHETERS: A 5-Bulgarian sheath, 5/4 left and right Fidelina, 5/4 pig. The procedure was well tolerated. The patient returned to the oakes, sheath removed. ExoSeal device placed. FINDINGS: Left ventriculography in 30-degree PARSONS view: Normal wall motion, normal systolic function. CORONARY ANATOMY: LEFT MAIN: Left main is free of disease. LAD: Has one large diagonal probably between the LAD itself. Stents prior to the diagonal are widely patent. Stents after the branch of the diagonal is patent; however, there is severe diffuse stenosis between the 2 previously placed stents. CIRCUMFLEX: Totally occluded. RIGHT CORONARY: Totally occluded. BYPASS GRAFTS: 1. SVG: SVG to the right is widely patent without evidence of post-anastomotic stenosis. 2. Saphenous vein graft to circumflex widely patent without evidence of post-anastomotic stenosis. 3. KIMBROUGH to LAD. This supplies a small territory and does not fill the LAD via competitive flow at all and with injection of [place] vessels. PLAN: Intervention to the 80% diffusely stenosed LAD. DESCRIPTION OF PROCEDURE: A 5-Bulgarian sheath was exchanged for a 6-Bulgarian sheath. An XB LAD guiding catheter provided good guide catheter support, followed by 300 cm Whisper wire. Predeployment balloon was a 3.0 x 15 mm Wilkes. The stent deployed was a 3.0 x 15 mm Integrity nondrug-eluting stent up to 14 atmospheres for 45 seconds. Final angiography shows excellent resolution of diffuse 80% stenosis, correlating nicely with nuclear study with no significant residual. KACEY flow was 3 throughout the procedure. Heparin and Integrilin were used during the case. Due to previous issues with compliance, a bare-metal stent was used. TRANSINT:[id number] Voice Confirmation ID: [id number] DOCUMENT ID: [id number] OPERATIVE REPORT [id number] CARLOS MANUEL GUTIERRES WALDO BOB MD at 0809 CC: [id number] DICTATION DATE: 04/02/20 1116 GRAVEL MACHINE OPERATOR: 04/02/20 1400 DEP CLI 04/02/20 [facility] [address] [facility] [place] [address]
== END 2020-04-02 15:45 | disposition home or self-care (01) ==
LOC: D.CATH 07:18
PROVIDERS: ATTEND Internal Medicine Interventional Cardiology
DX: I25.10 Atherosclerotic heart disease of native coronary artery without angina pectoris (principal); E78.5 Hyperlipidemia, unspecified; I10 Essential (primary) hypertension; Z95.1 Presence of aortocoronary bypass graft; E11.9 Type 2 diabetes mellitus without complications

== ENCOUNTER 2021-03-19 18:21 | Observation (INO) | payer MEDICARE, BC ==
[~2021-03-19] VITALS: Ht 172.7 cm; Wt 91.4 kg
[2021-03-19] VITALS (8 sets, daily range): BP systolic 116–136; BP diastolic 57–77
[2021-03-19 18:50] LABS: BASOPHILS 0.9 % (0-2); EOSINOPHILS 2.1 % (0-7); HEMOGLOBIN 12.9 g/dL (12-16); LYMPHOCYTES 32.1 % (15-50); MCH 28.7 pg (26.0-34.0); MONOCYTES 8.5 % (2-11); NEUTROPHILS 56.4 % (40-80); PLATELET COUNT 230 10x3/uL (130-400); RBC 4.48 10x6/uL (4.00-5.40); RDW 13.4 % (11.5-14.5); WBC 9.4 10x3/uL (4.8-10.8)
[2021-03-19 18:57] LABS: CALC OSMOLALITY 278 mosm/kg (275-300); CARBON DIOXIDE 27.5 mmol/L (21.0-32.0); CHLORIDE - SERUM 101 mmol/L (98-107); GLUCOSE 127 mg/dL (74-106); POTASSIUM - SERUM 3.8 mmol/L (3.5-5.1); SODIUM 137 mmol/L (136-145); UREA NITROGEN 21 mg/dL (7-18); eGFR NON AFRICAN AMERICAN 57 mL/min (90-120)
[2021-03-19 18:58] LABS: INR 1.16 (0.85-1.17); PROTIME 13.7 SECONDS (11.6-15.0)
--- NOTE | 2021-03-19 19:01 | NUR ---
PT STATES "MY EARS ARE BURNING AND THAT IS SOMETHING DIFFERENT"
[2021-03-19 19:13] LABS: ALBUMIN 3.2 g/dL (3.4-5.0); ALKALINE PHOSPHATASE 128 U/L (30-120); ALT (SGPT) 26 U/L (10-68); BILIRUBIN - TOTAL 0.24 mg/dL (0.2-1.3); CKMB 0.9 U/L (0.0-3.6); CREATINE KINASE 86 UL (21-215); MAGNESIUM - SERUM 1.9 mg/dL (1.8-2.4); PROTEIN - SERUM 7.6 g/dL (6.4-8.2)
[2021-03-19 19:17] LABS: TROPONIN-I < 0.017 ng/mL (0.000-0.060)
--- NOTE | 2021-03-19 19:28 | NUR ---
BEDSIDE REPORT GIVEN TO RIGOBERTO BARDALES
--- NOTE | 2021-03-19 21:45 | NUR ---
CALLED TO PATIENTS ROOM BY DAUGHTER, SHE STATES PATIENT IS HAVING BILATERAL EAR PAIN, BILATERAL JAW PAIN AND HER TEETH HURT, VITAL SIGNS WNL. MD NOTIFIED AND TO THE ROOM TO ASSESS PATIENT, NO NEW ORDERS. PATIENTS BEHAVIOR HASN'T CHANGED.
[2021-03-20 02:25] VITALS: BP 149/68; Ht 172.7 cm; Wt 91.4 kg
--- NOTE | 2021-03-20 03:25 | NUR ---
03/19/21 2355 PT TO FLOOR FROM ER W/ FRIEND. PT AMBULATED TO BATHROOM & BACK TO BED WITHOUT ANY DIFFICUTY. DENIES ANY CHEST PAIN AT PRESENT. HEPLOCK TO LEFT AC. NO SOB/DIAPHORESIS/NAUSEA/VOMITING. POSITIONED SELF IN BED & WENT TO SLEEP. WILL CONTINUE TO MONITOR.
[2021-03-20 05:54] LABS: BASOPHILS 0.9 % (0-2); EOSINOPHILS 2.4 % (0-7); HEMOGLOBIN 12.7 g/dL (12-16); MCH 28.6 pg (26.0-34.0); MCHC 33.3 g/dL (31.0-37.0); MCV 85.8 fL (80.0-100.0); MEAN PLATELET VOLUME 8.2 fL (7.4-10.4); MONOCYTES 7.7 % (2-11); PLATELET COUNT 193 10x3/uL (130-400); RBC 4.43 10x6/uL (4.00-5.40); RDW 13.5 % (11.5-14.5)
[2021-03-20 06:09] LABS: BILIRUBIN - TOTAL 0.33 mg/dL (0.2-1.3); CARBON DIOXIDE 29.4 mmol/L (21.0-32.0); CREATININE - SERUM 1.1 mg/dL (0.6-1.3); PROTEIN - SERUM 7.2 g/dL (6.4-8.2)
[2021-03-20 06:10] LABS: POTASSIUM - SERUM 4.4 mmol/L (3.5-5.1)
--- NOTE | 2021-03-20 06:50 | NUR ---
RECIEVED BEDSIDE REPORT. NO CURRENT PAIN OR DISTRESS ASSESSED. PATIENT RESTING COMFORTABLY O2 IN USE VIA NASAL CANNULA AT 3L. RESP EVEN AND UNLABORED.
[2021-03-20 06:56] LABS: ALKALINE PHOSPHATASE 118 U/L (30-120); ALT (SGPT) 22 U/L (10-68); BILIRUBIN - TOTAL 0.34 mg/dL (0.2-1.3); CALC OSMOLALITY 280 mosm/kg (275-300); CALCIUM 9.3 mg/dL (8.5-10.1); CARBON DIOXIDE 26.2 mmol/L (21.0-32.0); CHLORIDE - SERUM 105 mmol/L (98-107); GLUCOSE 133 mg/dL (74-106); MAGNESIUM - SERUM 2.1 mg/dL (1.8-2.4); POTASSIUM - SERUM 4.3 mmol/L (3.5-5.1); SODIUM 139 mmol/L (136-145); UREA NITROGEN 16 mg/dL (7-18); eGFR NON AFRICAN AMERICAN 57 mL/min (90-120)
[2021-03-20 06:57] LABS: TROPONIN-I < 0.017 ng/mL (0.000-0.060)
[2021-03-20 08:47] LABS: CHOL - HDL RATIO 3.6 ratio (2.3-4.1); LDL-HDL RATIO 1.3 ratio (1.5-3.5)
[2021-03-20 09:20] VITALS: BP 126/54
--- NOTE | 2021-03-20 09:30 | NUR ---
PATIENT PREPPED FOR CHIEF OF STAFF DOCTOR, MEDICATION HELD FOR PROCEDURE. NO CURRENT DISTRESS. PREP MEDS ADMINISTERED.
--- NOTE | 2021-03-20 10:00 | NUR ---
PATIENT RETURNED FROM ELECTROPLATER AUTOMATIC WITH CLEAN CATH. INCREASING PAIN TO PACE MAKER AREA AND DOWN LEFT ARM. NEW ORDER FOR PRN NORCO 10/325 ADMINISTERED ORDERED.
[2021-03-20 12:42] VITALS: BP 130/60
--- NOTE | 2021-03-20 12:58 | NUR ---
PATIENT DISCHARGING HOME. FEM SITE CLEAN DRY AND INTACT. NO BLEEDING NOTED. NO PAIN TO SITE. INSTRUCTIONS OF DISCHARGE EXPLAINED. RESP EVEN UNLABORED. INSPIROMOMETER EXPLAINED AND USED. PATIENT REACH 1500. PATIENT BRING HOME TO WITH HER. LEAVING VIA W/C WITH FAMILY VEHICLE.
--- NOTE | 2021-03-22 14:50 | EC ---
PATIENT:CARLOS MANUEL GUTIERRES DATE OF SERVICE: 03/19/21 SEX: F MEDICAL RECORD: [id number] DATE OF : 43 LOCATION:D. D.211 AGE OF PATIENT: 75 ADMISSION DATE: 03/19/21 REFERRING PHYSICIAN: INTERPRETING PHYSICIAN: ARVIN LIU MD ECHOCARDIOGRAM REPORT ECHO CHARGES 4 ECHO COMPLETE Date: 03/20/21 CLINICAL DIAGNOSIS: CP ECHOCARDIOGRAPHIC MEASUREMENTS (adult normal given) AC root (d.<3.7cm) 3.1 cm LV Septum d (<1.2 cm> 1.4 cm Valve Excursion 1.8 cm LV Septum (systole) 1.8 cm Left Atria (s.<4.0cm> 4.4 cm LVPW d(<1.2cm) 1.0 cm RV (d.<2.3cm) 2.6 cm LVPW (sytole) 1.3 cm LV diastole(<5.6CM) 5.6 cm MV E-F(>70mm/sec) cm LV systole 3.8 cm LVOT Diameter 1.8 cm MV exc.(>10mm) 1.4 cm Est.ejection fraction (50-75%) % DOPPLER: LVIT cm/sec A 76 cm/sec E 80 cm/sec LA cm/sec RVSP 22 mmHg LVOT 126 cm/sec AOP1/2T m/s Asc. Ao 153 cm/sec RVOT 89 cm/sec RA cm/sec PA 107 cm/sec AV Gradient Peak 9.3 mmHg AV Mean 5.2 mmHg AV Area 1.9 cm MV Gradient Peak 3.2 mmHg MV Mean 1.7 mmHg MV Area cm COMMENTS: Dry Cleaning Attendant: Mehreen EPPERSON Casing Runner: 5 Dr. Liu TAPE# Pericardial Effusion N DATE OF SERVICE: INTERPRETATION: Normal left ventricular chamber size and contractile function, ejection fraction 55% to 60%. Mild left atrial chamber dilatation. Right atrium and right ventricular chamber size and function appears normal. Aortic valve appears normal. No aortic regurgitation. Mitral valve appears normal. Mild mitral regurgitation. Tricuspid valve appears normal. Trace tricuspid regurgitation. Pulmonic valve not well visualized. No pulmonary regurgitation noted. No pericardial effusion visualized. ECHOCARDIOGRAM REPORT [id number] CARLOS MANUEL GUTIERRES IMPRESSION: Normal left ventricular chamber size and contractile function with ejection fraction of 55% to 60%. TRANSINT:[id number] Voice Confirmation ID: [id number] DOCUMENT ID: [id number] ARVIN LIU MD at 1450 CC: [id number] DICTATION DATE: 03/21/211729 COMMUNITY ENGAGEMENT SPECIALIST: 03/21/211933 DIS IN 03/20/21 [facility] [address] [id number]
--- NOTE | 2021-03-22 19:04 | MORECARE ---
CASE MANAGEMENT DISCHARGE SUMMARY PATIENT: CARLOS MANUEL GUTIERRES UNIT: [id number] ADM DATE: 03/19/21 AGE: 75 : 43 SEX: F ROOM/BED: [facility] AUTHOR: GERSON,DOC PHYSICIAN: REFERRING PHYSICIAN: CHANTAL PEREZ MD DATE OF SERVICE: 03/22/21 Case Management Discharge Planning Summary DCP REVIEW SUMMARY ANTICIPATED D/C DATE: EXPECTED LOS : CASE STATUS: DCP Complete INITIAL REVIEW: 03/20/2021 INITIAL REVIEWER: Sarah Hernandez FINAL DISCHARGE DISPOSITION: : FINAL REVIEWER: FINAL REVIEW DATE: DCP [employer] Questions & Answers QUESTION: ANSWER : PATIENT: CARLOS MANUEL GUTIERRES ENCOUNTER: [id number] MEDICAL RECORD#: [id number] ADMISSION DATE: 03/19/2021 DISCHARGE DATE: 03/20/2021 ATTENDING MD: CHANTAL OHARA : AGE: 75 MARITAL STATUS: W DC PLAN ID: [id number] FACILITY: [facility] PRINTED ON: 03/22/21 19:04 CT All edits/amendments must be made on the electronic document DICTATION DATE: 03/22/211903 DUMP TRUCK DRIVER: TERESA 03/22/211903 RPT#: [id number] DC DATE:03/20/21 STATUS: DIS IN [facility] [address] [place] [address] END OF REPORT
--- NOTE | 2021-03-23 09:26 | OP ---
PATIENT NAME: CARLOS MANUEL GUTIERRES MEDICAL RECORD: [id number] :43 LOCATION:D.M2 D.2112 ADMISSION DATE:03/19/21 SURGEON: WALDO BOB MD DATE OF OPERATION: 03/20/2021 PROCEDURE: Left heart catheterization, selective coronary angiography, stent to the LAD, saphenous vein graft to the right, saphenous vein graft to the circumflex, right femoral artery approach. CATHETERS: A 5-Danish right Fidelina, 5/4 pig. The procedure was well tolerated. The patient was returned to the oakes. Sheath removed with adequate hemostasis obtained. FINDINGS: Left ventriculography 30-degree PARSONS view; normal wall motion, normal systolic function. CORONARY ANATOMY: LEFT MAIN: Left main is free of disease. LAD: Has area of previous stenting, is widely patent. CIRCUMFLEX: Circumflex is totally occluded proximally. RIGHT CORONARY ARTERY: Totally occluded proximally. BYPASS GRAFTS: KIMBROUGH to the LAD is a small vessel and does touchdown at the LAD. The LAD itself appears to fill well distally past the stent. Saphenous vein graft to the circumflex is widely patent. Saphenous vein graft to the right widely patient with no evidence of post-anastomotic stenosis. IMPRESSION: 1. Patent saphenous graft. 2. Patent left internal mammary artery. 3. Normal left ventricular function. TRANSINT:[id number] Voice Confirmation ID: [id number] DOCUMENT ID: [id number] WALDO BOB MD at 0926 CC: [id number] DICTATION DATE: 03/20/21 0944 WANIGAN CLERK: 03/20/21 1118 DIS IN 03/20/21 [address] [id number] [place] [place] [id number]
--- NOTE | 2021-03-23 09:26 | CN ---
PATIENT NAME:CARLOS MANUEL GUTIERRES MEDICAL RECORD: [id number] : 43 LOCATION:DRitika D.2113 ADMIT DATE: 03/19/21 ACCOUNT: [id number] CONSULTING PHYSICIAN: WALDO BOB MD REFERRING PHYSICIAN: CHANTAL PEREZ MD DATE OF CONSULTATION: 03/20/2021 HISTORY OF PRESENT ILLNESS: A 75-year-old female with known history of coronary artery disease, status post coronary bypass grafting, subsequent intervention 1 year ago, has a family history of coronary artery disease, hypertension, hyperlipidemia, admitted with acute coronary syndrome. Symptoms are quite similar to her previous angina with radiation to the back as well as the jaw had a couple episodes relieved with nitroglycerin over the past 2 weeks. However, this was at rest and was not relieved with two nitroglycerins and presented to the ER. PAST MEDICAL HISTORY: 1. Includes a history of hypertension. 2. Hyperlipidemia. 3. Coronary artery as described above. 4. Osteoarthritis. 5. Mild anxiety. MEDICATIONS: Includes aspirin 81 every day, Prozac 40 every day, verapamil 120 every day, clopidogrel 75 every day. ALLERGIES: CODEINE. SOCIAL HISTORY: Nonsmoker, nondrinker. Easily takes care of all her ADLs with good family support. REVIEW OF SYSTEMS: The patient reports easy bruising but reports no swollen glands. The patient reports no fever, no night sweats, no significant weight gain, no significant weight loss. No significant exercise tolerance. The patient reports no dry eyes, no irritation, no vision change. Patient reports no difficulty hearing and no ear pain. Patient reports no frequent nose bleeds or nose and sinus problems. Patient reports on arm pain on exertion. No shortness of breath while lying down. No history of heart murmur. Patient reports no cough, no wheezing or coughing up blood. Patient reports no abdominal pain, no vomiting. Normal appetite. No diarrhea and not vomiting blood. No nausea and no constipation. Patient reports no incontinence. No difficulty urinating. No hematuria. No increased frequency. Patient reports no muscle aches. No weakness, no arthralgias, no back pain. No swelling of the extremities. Patient reports no abnormal mole, no jaundice, no rashes. Reports no loss of consciousness. No weakness and no numbness. No seizures, dizziness, or headaches. The patient reports no depression, no sleep disturbance, feeling safe in a relationship and no alcohol abuse. Patient reports on fatigue. Reports no runny nose or sinus pressure. No itching, no hives, and no frequent sneezing. PHYSICAL EXAMINATION: GENERAL: Well-developed, well-nourished, in no acute distress, appears stated age, 149/68, pulse 64 and regular. HEENT: Normocephalic, atraumatic. NECK: No JVD or bruits. CONSULT REPORT [id number] CARLOS MANUEL GUTIERRES HEART: Regular, II/ systolic ejection murmur. LUNGS: Good air excursion. No active wheezing. ABDOMEN: Soft, nontender. EXTREMITIES: Pulses 2+ and equal. Normal range of motion. NEUROLOGIC: Grossly intact. IMPRESSION: Acute coronary syndrome starting within a window of restenosis now with onset of rest symptomatology. Clinical history is rapid progressing course. PLAN: For angiography and intervention based on above. TRANSINT:[id number] Voice Confirmation ID: [id number] DOCUMENT ID: [id number] WALDO BOB MD at 0926 CC: [id number] DICTATION DATE: 03/20/21913 HOLISTIC PULSER: 03/20/21 1032 DIS IN 03/20/21 [facility] [address] [place] [address]
== END 2021-03-20 13:00 | disposition home or self-care (01) ==
LOC: D.ER 18:21 → OBSVTIME 23:10 → D.M2 23:10
PROVIDERS: Emergency Medicine; Internal Medicine Interventional Cardiology; ADMIT Family Medicine; ATTEND Family Medicine
DX: I20.0 Unstable angina (principal); R07.9 Chest pain, unspecified; I10 Essential (primary) hypertension; Z95.0 Presence of cardiac pacemaker; K21.9 Gastro-esophageal reflux disease without esophagitis; E78.5 Hyperlipidemia, unspecified; M19.90 Unspecified osteoarthritis, unspecified site; F41.9 Anxiety disorder, unspecified